=== PATIENT | female | born 1960 | race Caucasian/White ===

== ENCOUNTER 2019-01-12 18:01 | Inpatient (IN) ==
[2019-01-12] MEDS ORDERED: Isovue-370 500 ML BOTTLE IVP ONE (19:27)
[2019-01-12] MEDS ORDERED: 0.9 % Sodium Chloride 1,000 ML IVC ONE (19:28)
[2019-01-12 19:59] LABS: Basophils # 0.1 K/mcL (0.0-0.2); Basophils % 0.5 %; Eosinophils # 0.8 K/mcL (0.0-0.6); Eosinophils % 4.9 %; Hematocrit 36.2 % (35.3-44.9); Hemoglobin 12.4 g/dL (11.5-15.4); Immature Granulocytes % 0.8 % (0-4); Lymphocytes # 2.4 K/mcL (0.6-4.6); Lymphocytes % 15.5 %; Mean Corpuscular HGB Conc 34.3 g/dL (31.6-35.5); Mean Corpuscular Hemoglobin 29.7 pg (28.0-33.3); Mean Corpuscular Volume 86.6 fL (83.0-100.0); Monocytes # 0.9 K/mcL (0.0-1.3); Monocytes % 5.4 %; Neutrophils # 11.4 K/mcL (1.6-8.9); Platelet Count 298 K/mcL (140-400); Red Blood Count 4.18 M/mcL (3.82-4.97); Red Cell Distribution Width 13.8 % (11.5-14.5); Segmented Neutrophils % 72.9 %
[2019-01-12 20:06] LABS: Prothrombin Time 11.6 Seconds (9.4-12.1)
[2019-01-12 20:08] LABS: Activated Partial Thrombo Time 29.2 Seconds (26.0-36.0)
[2019-01-12 20:20] LABS: Alanine Aminotransferase 22 Units/L (7-52); Albumin 3.6 g/dL (3.5-5.7); Albumin/Globulin Ratio 0.9 (1.1-2.2); Alkaline Phosphatase 185 Units/L (34-104); Aspartate Amino Transferase 21 Units/L (13-39); BUN/Creatinine Ratio 31 (6-26); Bilirubin,Indirect 0.4 mg/dL (0.0-1.2); Bilirubin,Total 0.4 mg/dL (0.3-1.0); Blood Urea Nitrogen 22 mg/dL (6-20); Calcium 9.4 mg/dL (8.6-10.3); Carbon Dioxide 22 mEq/L (23-29); Chloride 99 mEq/L (98-107); Globulin 3.9 g/dL (2.4-3.5); Glucose 214 mg/dL (70-105); Lipase 18 Units/L (11-82); Magnesium 1.6 mg/dL (1.6-2.6); Osmolality,Calculated 280 (280-300); Phosphorous 3.4 mg/dL (2.7-4.5); Potassium 4.2 mEq/L (3.5-5.1); Sodium 130 mEq/L (136-145); Total Protein 7.5 g/dL (6.4-8.9); eGFR For Non-African Americans > 60 (> 60)
[2019-01-12 20:21] LABS: Troponin I < 0.03 ng/mL (< 0.04)
[2019-01-12 20:25] LABS: Bilirubin,Urine Negative (Negative); Blood,Urine Negative (Negative); Clarity,Urine Clear (Clear); Color,Urine Yellow (Yellow); Glucose,Urine (UA) >=1000 mg/dL (Normal); Ketones,Urine Negative (Negative); Leukocyte Esterase,Urine Trace (Negative); Nitrite,Urine Negative (Negative); Protein,Urine Negative (Neg-Trace); Specific Gravity,Urine 1.018 (1.010-1.025); Urobilinogen,Urine Normal (Normal)
[2019-01-12 20:26] LABS: Bacteria,Urine None Seen per hpf (None-Few); Hyaline Casts,Urine None Seen per lpf (None-Few); RBC,Urine 0-3 per hpf (0-3); Squamous Epithelial Cell,Urine Many per lpf (None-Few)
--- NOTE | 2019-01-12 20:28 | Emergency Department Note ---
Disposition Clinical Impression: Cellulitis Qualifiers: Site of cellulitis: extremity Site of cellulitis of extremity: lower extremity Laterality: right Qualified Code(s): L03.115 - Cellulitis of right lower limb Disposition: Admitted As Inpatient Condition: Fair Referrals: Carolyn Mendiola CNP [Primary Care Provider] - Forms: ED Satisfaction Letter Time of Disposition: 22:30 Extremity Problem HPI - General Chief complaint: ED Extremity Problem,Nontraumatic Stated complaint: RLE swelling Time Seen by Provider: 01/12/19 19:03 Source: patient Mode of arrival: ambulatory Limitations: no limitations Nursing Notes Reviewed: Yes Vital Signs Reviewed: Yes - History of Present Illness HPI Narrative: 58-year-old female process the emergency department with right leg swelling and pain and redness. Said it pain all started about a week ago getting in her right big toe and now the redness and pain is now going up into her leg. She says she has not noted any fevers for has not felt well over the last day or 2 she has had no nausea or vomiting. She does not have any shortness of breath or cough no hemoptysis she has not been on any long car rides she does not take any hormones and never had any blood clots as far she knows. She does have history of diabetic as well as neuropathy does take gabapentin. Otherwise there is no fevers, chills, nausea, vomiting, headache, blurry vision, neck pain, back pain, chest pain, shortness of breath, abdominal pain, changes in bowel movement, pain with urination, pain or tingling going down the arms or legs and generalized weakness Pain Scale: 10 - Related Data Home Medications Medication Instructions Recorded Confirmed Dapagliflozin Propanediol [Farxiga] 5 mg PO DAILY 09/08/16 01/12/19 Lisinopril [Zestril] 40 mg PO BID 09/08/16 01/12/19 metFORMIN [Glucophage] 1,000 mg PO BID 09/08/16 01/12/19 Atorvastatin [Lipitor] 20 mg PO DAILY 01/12/19 01/12/19 Canagliflozin [Invokana] 100 mg PO DAILY 01/12/19 01/12/19 Liraglutide [Victoza 3-Mo] 18 mg SQ DAILY 01/12/19 01/12/19 Previous Rx's Medication Instructions Recorded GlipiZIDE XL (24 HR) [Glucotrol XL] 10 mg PO 0800 #30 tab.er.24 09/10/16 Allergies Allergy/AdvReac Type Severity Reaction Status Date / Time sulfacetamide AdvReac Swelling Verified 01/12/19 16:00 of Lip/Tongue/Throat All systems ED: reviewed and negative except as stated. Review of Systems: As Per HPI Past Medical History - Past Medical History Attestation: Yes The following information was validated with the patient. Source: patient Medical history: Reports: diabetes, hypertension Surgical history: Reports: appendectomy, , cholecystectomy Psychiatric history: Reports: no psych history FRENCH BINDER history: Reports: no FRENCH BINDER history - Social History Smoking Status: Never smoker Smokeless Tobacco Status: No Alcohol use: Reports: none Drug use: Reports: none Physical Exam - General Limitations: no limitations General appearance: alert, in no apparent distress - Head Head exam: atraumatic, normocephalic, normal inspection - Eye Eye exam: Present: normal appearance, PERRL, EOMI - ENT ENT exam: normal exam ( ), normal oropharynx, mucous membranes moist - Neck Neck exam: Present: normal inspection, full ROM, trachea midline - Chest Chest inspection: Present: normal inspection, symmetric chest wall rise - Respiratory Respiratory exam: Present: normal lung sounds bilaterally - Extremities Exam Extremities exam: Present: normal inspection, full ROM. Absent: tenderness, pedal edema - Expanded Lower Extremity Exam Upper leg exam: Present: normal inspection, full ROM Knee exam: Present: normal inspection, full ROM Lower leg exam: Present: normal inspection, full ROM, tenderness, swelling (Mild swelling and erythema of the right leg all beginning down in the foot going up into the leg) Ankle exam: Present: normal inspection, full ROM Foot/toe exam: Present: full ROM, tenderness, swelling (We will swelling erythema to the right big toe does seem to be pus on the end of the toe no open drainage the toenails are curled and seemed to be ingrown in nature.), erythema. Absent: tenderness at base of 5th metatarsal Neurovascular/Tendon exam: Present: normal capillary refill. Absent: pulse deficit, motor deficit, sensory deficit, tendon deficit Gait: observed and normal - Neurological Exam Neurological exam: Present: alert, oriented X3 - Psychiatric Psychiatric exam: Present: normal affect, normal mood - Skin Skin exam: Present: warm, dry, intact, normal color Course Course Narrative: Patient is mildly tachycardic no signs of sepsis at this time. We have blood cultures, CBC, BMP we will get CT with contrast of the right lower extremity. There does not seem to be any signs of DVT patient does not have any risk factors and the foot does not to does not seem to look like DVT in nature. Vital Signs Temperature 99.2 F 01/12/19 18:12 Pulse Rate 127 01/12/19 18:12 Respiratory Rate 20 01/12/19 18:12 Blood Pressure 148/81 01/12/19 18:12 O2 Sat by Pulse Oximetry 97 01/12/19 18:12 Temperature 98.6 F 01/12/19 21:58 Pulse Rate 102 01/12/19 21:58 Respiratory Rate 18 01/12/19 21:58 Blood Pressure 124/67 01/12/19 21:58 O2 Sat by Pulse Oximetry 95 01/12/19 21:58 Oxygen Delivery Oxygen Delivery Room Air Extremity Problem, Nontraumati - MDM Narrative Medical decision making narrative: Patient here with possible right leg site is. There is no signs of DVT or swelling there are no DVT risk factors. This was likely is stabilizing the right leg. CT did show cellulitis with stranding I think the source is from paronychia of the right big toe there is pus there but there is no active discharge coming from the wound. There is nothing to culture at this time. We did get blood cultures. Labs did show leukocytosis otherwise no other acute findings. I feel patient does need podiatry consultation as well as admission for IV antibiotics. Did start patient on Zosyn and vancomycin as patient does have history of diabetes. Spoke with Dr. Longoria agreed to accept the patient to their service. Patient is admitted in stable condition. Lower Extremity CT 01/12/19 19:27 IMPRESSION: 1. Circumferential subcutaneous fat stranding of the right calf extending over the dorsum of the midfoot and forefoot compatible with cellulitis versus lymphedema. No drainable fluid collection. 2. No acute osseous abnormality. D/ / Jamie Mendoza MD / Jamie Mendoza MD Interpreting Provider: Jamie Mendoza MD - Medical Records Medical records reviewed: Yes I reviewed the patient's medical records. - Lab Data Lab results reviewed: Yes I reviewed the patient's lab results. Result diagrams: 01/12/19 19:36 01/12/19 19:36 Lab Results 01/12/19 01/12/19 01/12/19 Range/Units 19:36 19:36 19:36 WBC 15.7 H (4.3-11.1) K/mcL RBC 4.18 (3.82-4.97) M/mcL Hgb 12.4 (11.5-15.4) g/dL Hct 36.2 (35.3-44.9) % MCV 86.6 (83.0-100.0) fL MCH 29.7 (28.0-33.3) pg MCHC 34.3 (31.6-35.5) g/dL RDW 13.8 (11.5-14.5) % Plt Count 298 (140-400) K/mcL MPV 10.0 (9.4-12.4) fL Immature Gran % 0.8 (0-4) % Seg Neutrophils % 72.9 % Lymphocytes % 15.5 % Monocytes % 5.4 % Eosinophils % 4.9 % Basophils % 0.5 % Neutrophils # 11.4 H (1.6-8.9) K/mcL Lymphocytes # 2.4 (0.6-4.6) K/mcL Monocytes # 0.9 (0.0-1.3) K/mcL Eosinophils # 0.8 H (0.0-0.6) K/mcL Basophils # 0.1 (0.0-0.2) K/mcL PT 11.6 (9.4-12.1) Seconds INR 1.0 APTT 29.2 (26.0-36.0) Seconds Sodium 130 L (136-145) mEq/L Potassium 4.2 (3.5-5.1) mEq/L Chloride 99 (98-107) mEq/L Carbon Dioxide 22 L (23-29) mEq/L BUN 22 H (6-20) mg/dL Creatinine 0.71 (0.60-1.20) mg/dL Est GFR ( Amer) > 60 (> 60) Est GFR (Non-Af Amer) > 60 (> 60) BUN/Creatinine Ratio 31 H (6-26) Glucose 214 H (70-105) mg/dL Calculated Osmolality 280 (280-300) Lactic Acid (0.5-2.2) mmol/L Calcium 9.4 (8.6-10.3) mg/dL Phosphorus 3.4 (2.7-4.5) mg/dL Magnesium 1.6 (1.6-2.6) mg/dL Total Bilirubin 0.4 (0.3-1.0) mg/dL Direct Bilirubin 0.0 (0.0-0.2) mg/dL Indirect Bilirubin 0.4 (0.0-1.2) mg/dL AST 21 (13-39) Units/L ALT 22 (7-52) Units/L Alkaline Phosphatase 185 H (34-104) Units/L Troponin I < 0.03 (< 0.04) ng/mL B-Natriuretic Peptide (Less than 100) pg/mL Serum Total Protein 7.5 (6.4-8.9) g/dL Albumin 3.6 (3.5-5.7) g/dL Globulin 3.9 H (2.4-3.5) g/dL Albumin/Globulin Ratio 0.9 L (1.1-2.2) Lipase 18 (11-82) Units/L Urine Color (Yellow) Urine Clarity (Clear) Urine pH (5.0-8.0) pH Units Ur Specific [place] (1.010-1.025) Urine Protein (Neg-Trace) mg/dL Urine Glucose (UA) (Normal) mg/dL Urine Ketones (Negative) mg/dL Urine Blood (Negative) Urine Nitrite (Negative) Urine Bilirubin (Negative) Urine Urobilinogen (Normal) mg/dL Ur Leukocyte Esterase (Negative) Urine Microscopic RBC (0-3) per hpf Urine Microscopic WBC (0-3) per hpf Ur Squamous Epith Cells (None-Few) per lpf Urine Bacteria (None-Few) per hpf Hyaline Casts (None-Few) per lpf Ur Culture Indicated? (NO) 01/12/19 01/12/19 01/12/19 Range/Units 19:36 19:36 20:17 WBC (4.3-11.1) K/mcL RBC (3.82-4.97) M/mcL Hgb (11.5-15.4) g/dL Hct (35.3-44.9) % MCV (83.0-100.0) fL MCH (28.0-33.3) pg MCHC (31.6-35.5) g/dL RDW (11.5-14.5) % Plt Count (140-400) K/mcL MPV (9.4-12.4) fL Immature Gran % (0-4) % Seg Neutrophils % % Lymphocytes % % Monocytes % % Eosinophils % % Basophils % % Neutrophils # (1.6-8.9) K/mcL Lymphocytes # (0.6-4.6) K/mcL Monocytes # (0.0-1.3) K/mcL Eosinophils # (0.0-0.6) K/mcL Basophils # (0.0-0.2) K/mcL PT (9.4-12.1) Seconds INR APTT (26.0-36.0) Seconds Sodium (136-145) mEq/L Potassium (3.5-5.1) mEq/L Chloride (98-107) mEq/L Carbon Dioxide (23-29) mEq/L BUN (6-20) mg/dL Creatinine (0.60-1.20) mg/dL Est GFR ( Amer) (> 60) Est GFR (Non-Af Amer) (> 60) BUN/Creatinine Ratio (6-26) Glucose (70-105) mg/dL Calculated Osmolality (280-300) Lactic Acid 1.4 (0.5-2.2) mmol/L Calcium (8.6-10.3) mg/dL Phosphorus (2.7-4.5) mg/dL Magnesium (1.6-2.6) mg/dL Total Bilirubin (0.3-1.0) mg/dL Direct Bilirubin (0.0-0.2) mg/dL Indirect Bilirubin (0.0-1.2) mg/dL AST (13-39) Units/L ALT (7-52) Units/L Alkaline Phosphatase (34-104) Units/L Troponin I (< 0.04) ng/mL B-Natriuretic Peptide 15 (Less than 100) pg/mL Serum Total Protein (6.4-8.9) g/dL Albumin (3.5-5.7) g/dL Globulin (2.4-3.5) g/dL Albumin/Globulin Ratio (1.1-2.2) Lipase (11-82) Units/L Urine Color Yellow (Yellow) Urine Clarity Clear (Clear) Urine pH 6.0 (5.0-8.0) pH Units Ur Specific [place] 1.018 (1.010-1.025) Urine Protein Negative (Neg-Trace) mg/dL Urine Glucose (UA) >=1000 H (Normal) mg/dL Urine Ketones Negative (Negative) mg/dL Urine Blood Negative (Negative) Urine Nitrite Negative (Negative) Urine Bilirubin Negative (Negative) Urine Urobilinogen Normal (Normal) mg/dL Ur Leukocyte Esterase Trace H (Negative) Urine Microscopic RBC 0-3 (0-3) per hpf Urine Microscopic WBC 5-15 H (0-3) per hpf Ur Squamous Epith Cells Many H (None-Few) per lpf Urine Bacteria None Seen (None-Few) per hpf Hyaline Casts None Seen (None-Few) per lpf Ur Culture Indicated? NO. A (NO) - Radiology Data Radiology results reviewed: Yes I reviewed the patient's radiology results.
[2019-01-12] MEDS ORDERED: Piperacillin/Tazobactam 3.375 GM in 0.9 % Sodium Chloride Mini Bag 100 ML IVPB ONE (22:03)
--- NOTE | 2019-01-12 22:25 | Emergency Department Note ---
Disposition Clinical Impression: Cellulitis Qualifiers: Site of cellulitis: extremity Site of cellulitis of extremity: lower extremity Laterality: right Qualified Code(s): L03.115 - Cellulitis of right lower limb Disposition: Admitted As Inpatient Condition: Fair General Adult HPI - General Chief complaint: ED Extremity Problem,Nontraumatic Stated complaint: RLE swelling Time Seen by Provider: 01/12/19 19:03 Source: patient Mode of arrival: ambulatory Limitations: no limitations Nursing Notes Reviewed: Yes Vital Signs Reviewed: Yes - History of Present Illness Pain Scale: 10 - Related Data Home Medications Medication Instructions Recorded Confirmed Dapagliflozin Propanediol [Farxiga] 5 mg PO DAILY 09/08/16 01/12/19 Lisinopril [Zestril] 40 mg PO BID 09/08/16 01/12/19 metFORMIN [Glucophage] 1,000 mg PO BID 09/08/16 01/12/19 Atorvastatin [Lipitor] 20 mg PO DAILY 01/12/19 01/12/19 Canagliflozin [Invokana] 100 mg PO DAILY 01/12/19 01/12/19 Liraglutide [Victoza 3-Mo] 18 mg SQ DAILY 01/12/19 01/12/19 Previous Rx's Medication Instructions Recorded GlipiZIDE XL (24 HR) [Glucotrol XL] 10 mg PO 0800 #30 tab.er.24 09/10/16 Allergies Allergy/AdvReac Type Severity Reaction Status Date / Time sulfacetamide AdvReac Swelling Verified 01/12/19 16:00 of Lip/Tongue/Throat Past Medical History - Past Medical History Medical history: Reports: diabetes, hypertension Surgical history: Reports: appendectomy, , cholecystectomy Psychiatric history: Reports: no psych history DUST MIXER history: Reports: no DUST MIXER history - Social History Smoking Status: Never smoker Smokeless Tobacco Status: No Alcohol use: Reports: none Drug use: Reports: none Physical Exam - General Limitations: no limitations General appearance: alert, in no apparent distress Course Vital Signs Temperature 99.2 F 01/12/19 18:12 Pulse Rate 127 01/12/19 18:12 Respiratory Rate 20 01/12/19 18:12 Blood Pressure 148/81 01/12/19 18:12 O2 Sat by Pulse Oximetry 97 01/12/19 18:12 Temperature 98.6 F 01/12/19 21:58 Pulse Rate 102 01/12/19 21:58 Respiratory Rate 18 01/12/19 22:52 Blood Pressure 118/70 01/12/19 22:52 O2 Sat by Pulse Oximetry 95 01/12/19 21:58 Oxygen Delivery Oxygen Delivery Room Air Medical Decision Making - Medical Records Medical records reviewed: Yes I reviewed the patient's medical records. - Lab Data Lab results reviewed: Yes I reviewed the patient's lab results. Result diagrams: 01/12/19 19:36 01/12/19 19:36 Lab Results 01/12/19 01/12/19 01/12/19 Range/Units 19:36 19:36 19:36 WBC 15.7 H (4.3-11.1) K/mcL RBC 4.18 (3.82-4.97) M/mcL Hgb 12.4 (11.5-15.4) g/dL Hct 36.2 (35.3-44.9) % MCV 86.6 (83.0-100.0) fL MCH 29.7 (28.0-33.3) pg MCHC 34.3 (31.6-35.5) g/dL RDW 13.8 (11.5-14.5) % Plt Count 298 (140-400) K/mcL MPV 10.0 (9.4-12.4) fL Immature Gran % 0.8 (0-4) % Seg Neutrophils % 72.9 % Lymphocytes % 15.5 % Monocytes % 5.4 % Eosinophils % 4.9 % Basophils % 0.5 % Neutrophils # 11.4 H (1.6-8.9) K/mcL Lymphocytes # 2.4 (0.6-4.6) K/mcL Monocytes # 0.9 (0.0-1.3) K/mcL Eosinophils # 0.8 H (0.0-0.6) K/mcL Basophils # 0.1 (0.0-0.2) K/mcL PT 11.6 (9.4-12.1) Seconds INR 1.0 APTT 29.2 (26.0-36.0) Seconds Sodium 130 L (136-145) mEq/L Potassium 4.2 (3.5-5.1) mEq/L Chloride 99 (98-107) mEq/L Carbon Dioxide 22 L (23-29) mEq/L BUN 22 H (6-20) mg/dL Creatinine 0.71 (0.60-1.20) mg/dL Est GFR ( Amer) > 60 (> 60) Est GFR (Non-Af Amer) > 60 (> 60) BUN/Creatinine Ratio 31 H (6-26) Glucose 214 H (70-105) mg/dL Calculated Osmolality 280 (280-300) Lactic Acid (0.5-2.2) mmol/L Calcium 9.4 (8.6-10.3) mg/dL Phosphorus 3.4 (2.7-4.5) mg/dL Magnesium 1.6 (1.6-2.6) mg/dL Total Bilirubin 0.4 (0.3-1.0) mg/dL Direct Bilirubin 0.0 (0.0-0.2) mg/dL Indirect Bilirubin 0.4 (0.0-1.2) mg/dL AST 21 (13-39) Units/L ALT 22 (7-52) Units/L Alkaline Phosphatase 185 H (34-104) Units/L Troponin I < 0.03 (< 0.04) ng/mL B-Natriuretic Peptide (Less than 100) pg/mL Serum Total Protein 7.5 (6.4-8.9) g/dL Albumin 3.6 (3.5-5.7) g/dL Globulin 3.9 H (2.4-3.5) g/dL Albumin/Globulin Ratio 0.9 L (1.1-2.2) Lipase 18 (11-82) Units/L Urine Color (Yellow) Urine Clarity (Clear) Urine pH (5.0-8.0) pH Units Ur Specific [place] (1.010-1.025) Urine Protein (Neg-Trace) mg/dL Urine Glucose (UA) (Normal) mg/dL Urine Ketones (Negative) mg/dL Urine Blood (Negative) Urine Nitrite (Negative) Urine Bilirubin (Negative) Urine Urobilinogen (Normal) mg/dL Ur Leukocyte Esterase (Negative) Urine Microscopic RBC (0-3) per hpf Urine Microscopic WBC (0-3) per hpf Ur Squamous Epith Cells (None-Few) per lpf Urine Bacteria (None-Few) per hpf Hyaline Casts (None-Few) per lpf Ur Culture Indicated? (NO) 01/12/19 01/12/1901/12/19 Range/Units 19:36 19:36 20:17 WBC (4.3-11.1) K/mcL RBC (3.82-4.97) M/mcL Hgb (11.5-15.4) g/dL Hct (35.3-44.9) % MCV (83.0-100.0) fL MCH (28.0-33.3) pg MCHC (31.6-35.5) g/dL RDW (11.5-14.5) % Plt Count (140-400) K/mcL MPV (9.4-12.4) fL Immature Gran % (0-4) % Seg Neutrophils % % Lymphocytes % % Monocytes % % Eosinophils % % Basophils % % Neutrophils # (1.6-8.9) K/mcL Lymphocytes # (0.6-4.6) K/mcL Monocytes # (0.0-1.3) K/mcL Eosinophils # (0.0-0.6) K/mcL Basophils # (0.0-0.2) K/mcL PT (9.4-12.1) Seconds INR APTT (26.0-36.0) Seconds Sodium (136-145) mEq/L Potassium (3.5-5.1) mEq/L Chloride (98-107) mEq/L Carbon Dioxide (23-29) mEq/L BUN (6-20) mg/dL Creatinine (0.60-1.20) mg/dL Est GFR ( Amer) (> 60) Est GFR (Non-Af Amer) (> 60) BUN/Creatinine Ratio (6-26) Glucose (70-105) mg/dL Calculated Osmolality (280-300) Lactic Acid 1.4 (0.5-2.2) mmol/L Calcium (8.6-10.3) mg/dL Phosphorus (2.7-4.5) mg/dL Magnesium (1.6-2.6) mg/dL Total Bilirubin (0.3-1.0) mg/dL Direct Bilirubin (0.0-0.2) mg/dL Indirect Bilirubin (0.0-1.2) mg/dL AST (13-39) Units/L ALT (7-52) Units/L Alkaline Phosphatase (34-104) Units/L Troponin I (< 0.04) ng/mL B-Natriuretic Peptide 15 (Less than 100) pg/mL Serum Total Protein (6.4-8.9) g/dL Albumin (3.5-5.7) g/dL Globulin (2.4-3.5) g/dL Albumin/Globulin Ratio (1.1-2.2) Lipase (11-82) Units/L Urine Color Yellow (Yellow) Urine Clarity Clear (Clear) Urine pH 6.0 (5.0-8.0) pH Units Ur Specific [place] 1.018 (1.010-1.025) Urine Protein Negative (Neg-Trace) mg/dL Urine Glucose (UA) >=1000 H (Normal) mg/dL Urine Ketones Negative (Negative) mg/dL Urine Blood Negative (Negative) Urine Nitrite Negative (Negative) Urine Bilirubin Negative (Negative) Urine Urobilinogen Normal (Normal) mg/dL Ur Leukocyte Esterase Trace H (Negative) Urine Microscopic RBC 0-3 (0-3) per hpf Urine Microscopic WBC 5-15 H (0-3) per hpf Ur Squamous Epith Cells Many H (None-Few) per lpf Urine Bacteria None Seen (None-Few) per hpf Hyaline Casts None Seen (None-Few) per lpf Ur Culture Indicated? NO. A (NO) - Radiology Data Radiology results reviewed: Yes I reviewed the patient's radiology results. Lower Extremity CT 01/12/19 19:27 IMPRESSION: 1. Circumferential subcutaneous fat stranding of the right calf extending over the dorsum of the midfoot and forefoot compatible with cellulitis versus lymphedema. No drainable fluid collection. 2. No acute osseous abnormality. D/ / Jamie Mendoza MD / Jamie Mendoza MD Interpreting Provider: Jamie Mendoza MD Critical Care Time Critical Care Time: Yes Total Critical Care Time: 35 Attestation: Critical care performed: Time is exclusive of separately billable procedures. Time includes: direct patient care, patient reassessment, coordination of patient care, interpretation of data (laboratory data, radiology data, and respiratory data), review of [facility] medical records, medical consultation and documentation of patient care. Procedures included in critical care time: Procedures excluded from critical care time: Attestation Statement - Attestation Attestation: I, Jayy Frazier MD, personally evaluated this patient and discussed their management with the resident physician. I reviewed the resident's note and agree with the documented findings, medical decision making, and plan of care. 58-year-old female presents to the emergency department with complaint of pain and swelling and redness in the right great toe and right foot. This started ab out 2 weeks ago and has progressively gotten worse over the past 2 weeks. Now the entire foot is red and swollen with discoloration streaking along the medial aspect of the foot. She also complains of pain in the calf. Some chills but no definite fever. Patient is diabetic. On examination patient is a well-developed well-nourished female in no acute distress. She is alert and oriented 3. There is no cyanosis or diaphoresis. Breath sounds are clear and equal bilaterally. Heart is regular with a mild tachycardia. Abdomen soft and nontender with normal bowel sounds. There is diffuse tenderness to palpation of the right lower leg from just below the knee down. There is no erythema but it is slightly warm to touch. There is erythema primarily of the right great toe extending up onto the top of the foot. The entire right foot is mildly swollen. Palpable DP pulse and good capillary refill. Some decreased sensation in the right big toe. Patient states she does have some problems with diabetic neuropathy. Labs reviewed. CT consistent with cellulitis of the right foot and lower leg. IV antibiotics initiated, Zosyn and vancomycin. The hospitalist, Dr. Josue, was consulted and accepted admission of the patient.
[2019-01-12] MEDS ORDERED: Acetaminophen 325 MG TABLET PO PRN (22:59)
[2019-01-12] MEDS ORDERED: Dextrose Gel 15 GM/37.5 ML TUBE PO PRN ×2 (22:59)
[2019-01-12] MEDS ORDERED: *HR* Dextrose 50 % in Water (Syg) 50 ML SYRINGE IVP PRN (22:59)
[2019-01-12] MEDS ORDERED: Insulin DETEMIR 100 UNIT/ML X5UNITS SQ ONE (22:59)
[2019-01-12] MEDS ORDERED: Naloxone 0.4 MG/ML INJ IVP PRN (22:59)
[2019-01-12] MEDS: 0.9 % Sodium Chloride 1,000 ML IVC SCH (23:52)
[2019-01-12] MEDS: traMADol 50 MG TABLET PO PRN (23:53)
--- NOTE | 2019-01-13 00:01 | Internal Med History&Physical ---
Date of Encounter: 01/12/19 Time of Encounter: 23:59 Internal Medicine - H&P: HPI Chief complaint: foot pain Admitted From: Home Plans for Post Hospital Care: Home History of present illness: Valeria Galicia is a 58 year old woman with poorly controlled diabetes with neuropathy who presents to the emergency room complaining of redness, swelling and pain in her right great toe which she has been dealing with over the past 2 weeks after cutting her toenail with a clipper but had a tissue cut. No associated fever or chills. No nausea or vomiting. She was tachycardic with a low grade temperature and seen to have leukocytosis. CT scan showed subcutaneous fat stranding of the right calf extending over the dorsum of the midfoot and forefoot compatible with cellulitis. She is admitted for further care. Past Med Surg Social Fam HX - Past Medical History Medical history: diabetes, hypertension Psychiatric history: no psych history - Past Surgical History Surgical History: appendectomy, , cholecystectomy Additional surgical history: dental surgery - Social History Smoking Status: Never smoker Smokeless Tobacco Status: No Alcohol use: none Drug use: none - Family History Mother Living Status: Still Living Hx Family Endocrine Disorder: Yes (Diabetes) Father Living Status: Still Living Hx Family Cancer: Yes Internal Medicine - H&P: Meds Dapagliflozin Propanediol [Farxiga] 5 mg PO DAILY 09/08/16 [History] Lisinopril [Zestril] 40 mg PO BID 09/08/16 [History] metFORMIN [Glucophage] 1,000 mg PO BID 09/08/16 [History] GlipiZIDE XL (24 HR) [Glucotrol XL] 10 mg PO 0800 #30 tab.er.24 09/10/16 [Rx] Atorvastatin [Lipitor] 20 mg PO DAILY 01/12/19 [History] Canagliflozin [Invokana] 100 mg PO DAILY 01/12/19 [History] Liraglutide [Victoza 3-Mo] 18 mg SQ DAILY 01/12/19 [History] Allergy/AdvReac Type Severity Reaction Status Date / Time sulfacetamide AdvReac Swelling Verified 01/12/19 16:00 of Lip/Tongue/Throat All Systems PM: A 10-system review of systems was performed and is negative for pertinent findings except as documented above in the HPI. - Constitutional Vitals: Temp Pulse Resp BP Pulse Ox 98.6 F 102 18 118/70 95 01/12/19 21:58 01/12/19 21:58 01/12/19 22:52 01/12/19 22:52 01/12/19 21:58 Exam: Vitals: Reviewed General: Obese white woman lying in bed in NAD Skin: Warm and supple. HEENT: Moist mucous membranes. No conjunctivae pallor. Neck: No lymphadenopathy. No JVD. No carotid bruits. No palpable thyroid. Chest: Normal thoracic expansion. Normal breath sounds. Clear to auscultation. Heart: Normal S1 & S2; rhythmic. No rubs or murmurs. Abdomen: Non-distended, soft and non-tender to palpation. No peritoneal reaction. Extremities: No clubbing, cyanosis. Right forefoot with erythema and notable tense swelling on the great toe which is tender to palpation. No calf tenderness. Normal distal pulses. Neurological: Awake, alert and oriented to person, place and time. No focal deficits. Psych: Affect appropriate. Internal Med - H&P Results - Labs CBC & Chem 7: 01/12/19 19:36 01/12/19 19:36 Labs: Short CBC 01/12/19 Range/Units 19:36 WBC 15.7 H (4.3-11.1) K/mcL Hgb 12.4 (11.5-15.4) g/dL Hct 36.2 (35.3-44.9) % Plt Count 298 (140-400) K/mcL Neutrophils # 11.4 H (1.6-8.9) K/mcL BMP 01/12/19 19:36 Sodium 130 L Potassium 4.2 Chloride 99 Carbon Dioxide 22 L BUN 22 H Creatinine 0.71 Glucose 214 H Calcium 9.4 Cardiac Enzymes 01/12/19 Range/Units 19:36 Troponin I < 0.03 (< 0.04) ng/mL Liver Function 01/12/19 Range/Units 19:36 Total Bilirubin 0.4 (0.3-1.0) mg/dL Direct Bilirubin 0.0 (0.0-0.2) mg/dL AST 21 (13-39) Units/L ALT 22 (7-52) Units/L Alkaline Phosphatase 185 H (34-104) Units/L Albumin 3.6 (3.5-5.7) g/dL Urine 01/12/19 Range/Units 20:17 Urine Color Yellow (Yellow) Urine Clarity Clear (Clear) Urine pH 6.0 (5.0-8.0) pH Units Ur Specific [place] 1.018 (1.010-1.025) Urine Protein Negative (Neg-Trace) mg/dL Urine Glucose (UA) >=1000 H (Normal) mg/dL - Impressions ITS Impressions Lower Extremity CT 01/12/19 19:27 IMPRESSION: 1. Circumferential subcutaneous fat stranding of the right calf extending over the dorsum of the midfoot and forefoot compatible with cellulitis versus lymphedema. No drainable fluid collection. 2. No acute osseous abnormality. D/ / Jamie Mendoza MD / Jamie Mendoza MD Interpreting Provider: Jamie eMndoza MD - Assessment and Plan (1) Cellulitis of great toe of right foot Current Visit: Yes Status: Acute Assessment and plan: Likely secondary to traumatic injury induced by her nail-cutting. She will benefit from podiatry evaluation and follow up care as an outpatient. Send blood cultures and continue empiric antibiotics. (2) Diabetes mellitus Current Visit: Yes Status: Chronic Assessment and plan: Poorly controlled. Last A1C >12% in 2015. Will start basal insulin with sliding scale and recheck A1C. Qualifiers: Diabetes mellitus type: type 2 Diabetes mellitus terminal manager insulin use: unspecified skilled nursing insulin use status Diabetes mellitus complication status: with unspecified complications Qualified Code(s): E11.8 - Type 2 diabetes mellitus with unspecified complications (3) Essential hypertension Current Visit: Yes Status: Chronic Assessment and plan: Resume antihypertensive once reconciled. (4) Obesity Current Visit: Yes Status: Acute Assessment and plan: Counseled and educated on therapeutic lifestyle changes for weight loss as it will be of benefit in controlling comorbidities. Lace Burn Out Tender evaluation advised. Qualifiers: Obesity type: due to excess calories Obesity classification: adult class 2 (BMI 35 - 39.9) Serious obesity comorbidity presence: with serious comorbidity Body mass index: BMI 35.0-35.9 Qualified Code(s): E66.01 - Morbid (severe) obesity due to excess calories; Z68.35 - Body mass index (BMI) 35.0-35.9, adult - Time Spent With Patient Total time spent is greater than 50% in coordination of care (as documented) at patient's floor/unit and/or counseling patient: Greater than 35 minutes
[2019-01-13] MEDS: *HR* Heparin 5,000 UNIT/ML VIAL SQ SCH ×2 (04:54→17:03)
[2019-01-13 06:23] LABS: Basophils # 0.1 K/mcL (0.0-0.2); Basophils % 0.4 %; Eosinophils # 0.6 K/mcL (0.0-0.6); Eosinophils % 4.8 %; Hematocrit 33.6 % (35.3-44.9); Hemoglobin 11.3 g/dL (11.5-15.4); Immature Granulocytes % 0.6 % (0-4); Lymphocytes # 2.4 K/mcL (0.6-4.6); Lymphocytes % 20.4 %; Mean Corpuscular HGB Conc 33.6 g/dL (31.6-35.5); Mean Corpuscular Hemoglobin 29.7 pg (28.0-33.3); Mean Corpuscular Volume 88.2 fL (83.0-100.0); Mean Platelet Volume 9.9 fL (9.4-12.4); Monocytes # 0.6 K/mcL (0.0-1.3); Monocytes % 5.4 %; Neutrophils # 7.9 K/mcL (1.6-8.9); Platelet Count 278 K/mcL (140-400); Red Blood Count 3.81 M/mcL (3.82-4.97); Red Cell Distribution Width 14.1 % (11.5-14.5); Segmented Neutrophils % 68.4 %
[2019-01-13 06:36] LABS: BUN/Creatinine Ratio 26 (6-26); Blood Urea Nitrogen 15 mg/dL (6-20); Calcium 8.6 mg/dL (8.6-10.3); Carbon Dioxide 23 mEq/L (23-29); Chloride 106 mEq/L (98-107); Glucose 77 mg/dL (70-105); Osmolality,Calculated 288 (280-300); Potassium 3.7 mEq/L (3.5-5.1); Sodium 139 mEq/L (136-145); eGFR For Non-African Americans > 60 (> 60)
[2019-01-13] MEDS: 0.9 % Sodium Chloride 1,000 ML IVC SCH (06:41)
--- NOTE | 2019-01-13 09:24 | Podiatry Consult Note ---
Date of Encounter: 01/13/19 Time of Encounter: 09:24 Assessment and Plan (1) Paronychia Current visit: Yes Status: Acute 1. Patient evaluated and treated. The cellulitis appears to be coming from the ingrown toenail of the right 1st toe. There are no other obvious wounds or sources of the infection. CT right foot showed no evidence of soft tissue gas or abscess. I recommended nail avulsion procedure for infection source control. Will obtain cultures if purulence is noted. Continue with IV antibiotic for now. Will likely discharge on PO antibiotics once cellulitis has improved. Will plan for procedure later today. SNOMED Code(s): 19555608 (2) Cellulitis of great toe of right foot Current visit: Yes Status: Acute 1. Continue with IV antibiotics until cellulitis improved. Will obtain cultures if purulence is noted during nail avulsion procedure. History of Present Illness Chief complaint: right 1st toe cellulitis HPI: Ms. Galicia is a 58 year old female with a history of type II diabetes presenting with redness and swelling of the right 1st toe. She reports the redness started approximately 1 week ago when she tried to trim her toenail and it became inflamed. She denies n/v/f/c at this time. There is pain at the nail to touch. She denies any drainage coming from the nail. She denies any known trauma. Noted WBC of 15.[address] without evidence of abscess or soft tissue gas. Past Med Surg Social Fam HX - Past Medical History Medical history: diabetes, hypertension Psychiatric history: no psych history - Past Surgical History Surgical History: appendectomy, , cholecystectomy Additional surgical history: dental surgery - Social History Smoking Status: Never smoker Smokeless Tobacco Status: No Alcohol use: none Drug use: none - Family History Mother Living Status: Still Living Hx Family Endocrine Disorder: Yes (Diabetes) Father Living Status: Still Living Hx Family Cancer: Yes Medications and Allergies Dapagliflozin Propanediol [Farxiga] 5 mg PO DAILY 09/08/16 [History] Lisinopril [Zestril] 40 mg PO BID 09/08/16 [History] metFORMIN [Glucophage] 1,000 mg PO BID 09/08/16 [History] GlipiZIDE XL (24 HR) [Glucotrol XL] 10 mg PO 0800 #30 tab.er.24 09/10/16 [Rx] Atorvastatin [Lipitor] 20 mg PO DAILY 01/12/19 [History] Canagliflozin [Invokana] 100 mg PO DAILY 01/12/19 [History] Liraglutide [Victoza 3-Mo] 18 mg SQ DAILY 01/12/19 [History] Allergy/AdvReac Type Severity Reaction Status Date / Time sulfacetamide AdvReac Swelling Verified 01/12/19 16:00 of Lip/Tongue/Throat All Systems Reviewed: The remainder of the systems were reviewed and are negative Physical Exam - Constitutional Vitals: Temp Pulse Resp BP Pulse Ox 98.2 F 87 17 144/82 99 01/13/19 07:46 01/13/19 07:46 01/13/19 07:46 01/13/19 07:46 01/13/19 07:46 Exam: Constitutional: Alert, oriented x3, no acute distress. Vascular: DP and PT palpable bilateral. Capillary refill less than 3 seconds to all digits. Skin temperature warm to touch right first toe compared to leg. Dermatology: Right hallux nail with mild incurvation at all nail folds. No active drainage. Erythema extending proximally to level of MPJ. No crepitus. No other wounds or lesions. Musculoskeletal: Tenderness with palpation right 1st toenail. Neuro: Sensations diminished to light touch bilateral lower extremity. Results - Labs Result Diagrams: 01/13/19 05:31 01/13/19 05:31 Labs: Abnormal lab results WBC 11.6 K/mcL (4.3-11.1) H 01/13/19 05:31 RBC 3.81 M/mcL (3.82-4.97) L 01/13/19 05:31 Hgb 11.3 g/dL (11.5-15.4) L 01/13/19 05:31 Hct 33.6 % (35.3-44.9) L 01/13/19 05:31 Creatinine 0.58 mg/dL (0.60-1.20) L 01/13/19 05:31 Alkaline Phosphatase 185 Units/L (34-104) H 01/12/19 19:36 Globulin 3.9 g/dL (2.4-3.5) H 01/12/19 19:36 Albumin/Globulin Ratio 0.9 (1.1-2.2) L 01/12/19 19:36 Urine Glucose (UA) >=1000 mg/dL (Normal) H 01/12/19 20:17 Ur Leukocyte Esterase Trace (Negative) H 01/12/19 20:17 Urine Microscopic WBC 5-15 per hpf (0-3) H 01/12/19 20:17 Ur Squamous Epith Cells Many per lpf (None-Few) H 01/12/19 20:17 Ur Culture Indicated? NO. (NO) A 01/12/19 20:17 H & H 01/12/19 01/13/19 Range/Units 19:36 05:31 Hgb 12.4 11.3 L (11.5-15.4) g/dL Hct 36.2 33.6 L (35.3-44.9) % All other labs normal. Consult Discharge Plan - Plan Additional Instructions: 1. Apply triple antibiotic and bandaid daily to the right 1st toe wound after discharge. Can shower normally. 2. Follow up with Dr. Og Manning 1 week after discharge. 3. Complete PO antibiotics as prescribed after discharge. Referrals: Carolyn Mendiola CNP [Primary Care Provider] - Og Manning DPM [Partnered Physician] -
[2019-01-13] MEDS: Insulin LISPRO 300 UNITS/3 ML VIAL SQ SCH ×4 (09:29→19:57)
[2019-01-13] MEDS: Piperacillin/Tazobactam 3.375 GM in 0.9 % Sodium Chloride Mini Bag 100 ML IVPB SCH ×3 (09:30→23:13)
[2019-01-13] MEDS: traMADol 50 MG TABLET PO PRN (09:44)
--- NOTE | 2019-01-13 12:18 | Procedure Note ---
Date of procedure: 01/13/19 Pre-op diagnosis: paronychia right 1st toe Post-op diagnosis: same Procedure: 1. Right 1st toe nail avulsion Patient presented with right 1st toenail infection and cellulitis. Surgical removal of the nail was recommended. Surgical consent was obtained for right 1st toenail avulsion for suspected abscess and paronychia. The right 1st toe was prepped with betadine. A total of 5mL of 1% lidocaine plain was injected to the right 1st toe. A curved hemostat was used to remove the entire nail plate of the right 1st toe. A small amount of purulent drainage was noted at the distal aspect of the toe. Would culture sent for aerobe and anaerobe. No fluid pocket was noted after removal of the nail. No laceration was noted to the nail bed. The wound was irrigated with 10mL of normal saline. The wound was dressed with adaptic and dry, sterile dressing. She tolerated the procedure well and there were no complications. Capillary refill to the right 1st toe was brisk following the procedure. Will tailor antibiotics to wound culture sensitivities. Anesthesia: local Surgeon: Og Manning Was there an captain assistant present: No Estimated blood loss (cc): 0 Specimen: wound culture for aerobe, anaerobe right 1st toe Condition: stable Disposition: floor
--- NOTE | 2019-01-13 12:55 | Internal Med Progress Note ---
Hospitalist Progress Note - Encounter Date of Encounter: 01/13/19 Time of Encounter: 09:00 - Subjective Interval History: Patient has no fever. Minimal right big toe pain. Denies chills/nausea/vomiting - Exam Vitals: Temp Pulse Resp BP Pulse Ox 98.4 F 93 18 146/84 98 01/13/19 11:56 01/13/19 11:56 01/13/19 11:56 01/13/19 11:56 01/13/19 11:56 Exam: Vitals: Reviewed General: Obese white woman lying in bed in NAD Skin: Warm and supple. HEENT: Moist mucous membranes. No conjunctivae pallor. Neck: No lymphadenopathy. No JVD. No carotid bruits. No palpable thyroid. Chest: Normal thoracic expansion. Normal breath sounds. Clear to auscultation. Heart: Normal S1 & S2; rhythmic. No rubs or murmurs. Abdomen: Non-distended, soft and non-tender to palpation. No peritoneal reaction. Extremities: No clubbing, cyanosis. Right forefoot with erythema and notable tense swelling on the great toe which is tender to palpation. No calf tenderness. Normal distal pulses. Neurological: Awake, alert and oriented to person, place and time. No focal deficits. Psych: Affect appropriate. - Assessment and Plan (1) Essential hypertension Current Visit: Yes Status: Chronic Assessment and Plan: Resume antihypertensive once reconciled. (2) Diabetes mellitus Current Visit: Yes Status: Chronic Assessment and Plan: Continue sliding scale insulin coverage (3) Cellulitis of great toe of right foot Current Visit: Yes Status: Acute Assessment and Plan: Likely secondary to traumatic injury induced by her nail-cutting. Podiatry saw patient at bedside. Did first toe nail removal Continue vancomycin. Follow-up of blood and wound culture (4) Obesity Current Visit: Yes Status: Acute Assessment and Plan: Counseled and educated on therapeutic lifestyle changes for weight loss as it will be of benefit in controlling comorbidities. Distribution Clerk evaluation advised. DVT Prophylaxis: Heparin SC - Time Spent with Patient Total time spent is greater than 50% in coordination of care (as documented) at patient's floor/unit and/or counseling patient: 30 minutes 25 - 35 minutes Plan of Care Discussed with: patient Internal Medicine: Result - Labs CBC & Chem 7: 01/13/19 05:31 01/13/19 05:31 Labs: Short CBC 01/12/19 01/13/19 Range/Units 19:36 05:31 WBC 15.7 H 11.6 H (4.3-11.1) K/mcL Hgb 12.4 11.3 L (11.5-15.4) g/dL Hct 36.2 33.6 L (35.3-44.9) % Plt Count 298 278 (140-400) K/mcL Neutrophils # 11.4 H 7.9 (1.6-8.9) K/mcL BMP 01/12/19 01/13/19 19:36 05:31 Sodium 130 L 139 D Potassium 4.2 3.7 Chloride 99 106 Carbon Dioxide 22 L 23 BUN 22 H 15 Creatinine 0.71 0.58 L Glucose 214 H 77 Calcium 9.4 8.6 Cardiac Enzymes 01/12/19 Range/Units 19:36 Troponin I < 0.03 (< 0.04) ng/mL Liver Function 01/12/19 Range/Units 19:36 Total Bilirubin 0.4 (0.3-1.0) mg/dL Direct Bilirubin 0.0 (0.0-0.2) mg/dL AST 21 (13-39) Units/L ALT 22 (7-52) Units/L Alkaline Phosphatase 185 H (34-104) Units/L Albumin 3.6 (3.5-5.7) g/dL Urine 01/12/19 Range/Units 20:17 Urine Color Yellow (Yellow) Urine Clarity Clear (Clear) Urine pH 6.0 (5.0-8.0) pH Units Ur Specific [place] 1.018 (1.010-1.025) Urine Protein Negative (Neg-Trace) mg/dL Urine Glucose (UA) >=1000 H (Normal) mg/dL - ABG Interpretation ABG results: PT/INR, D-dimer PT 11.6 Seconds (9.4-12.1) 01/12/19 19:36 - Impressions Impressions Lower Extremity CT 01/12/19 19:27 IMPRESSION: 1. Circumferential subcutaneous fat stranding of the right calf extending over the dorsum of the midfoot and forefoot compatible with cellulitis versus lymphedema. No drainable fluid collection. 2. No acute osseous abnormality. D/ / Jamie Mendoza MD / Jamie Mendoza MD Interpreting Provider: Jamie Mendoza MD Consult Discharge Plan - Plan Additional Instructions: 1. Apply triple antibiotic and bandaid daily to the right 1st toe wound after discharge. Can shower normally. 2. Follow up with Dr. Og Manning 1 week after discharge. 3. Complete PO antibiotics as prescribed after discharge. Referrals: Og Manning DPM [Partnered Physician] - Carolyn Mendiola CNP [Primary Care Provider] - (2) Diabetes mellitus Qualifiers: Diabetes mellitus type: type 2 Diabetes mellitus penitentiary insulin use: unspecified penitentiary insulin use status Diabetes mellitus complication status: with unspecified complications Qualified Code(s): E11.8 - Type 2 diabetes mellitus with unspecified complications (4) Obesity Qualifiers: Obesity type: due to excess calories Obesity classification: adult class 2 (BMI 35 - 39.9) Serious obesity comorbidity presence: with serious comorbidity Body mass index: BMI 35.0-35.9 Qualified Code(s): E66.01 - Morbid (severe) obesity due to excess calories; Z68.35 - Body mass index (BMI) 35.0-35.9, adult
[2019-01-13] MEDS: Lisinopril 20 MG TABLET PO SCH (13:06)
[2019-01-13] MEDS: *HR* OxyCODONE Immed Rel 5 MG TABLET PO PRN (17:03)
[2019-01-14] MEDS: *HR* Heparin 5,000 UNIT/ML VIAL SQ SCH ×2 (05:01→16:32)
[2019-01-14 06:13] LABS: Estimated Average Glucose 272 mg/dl; Hemoglobin A1C 11.1 %
[2019-01-14 06:28] LABS: Basophils # 0.1 K/mcL (0.0-0.2); Basophils % 0.5 %; Eosinophils # 0.5 K/mcL (0.0-0.6); Eosinophils % 5.1 %; Hematocrit 32.8 % (35.3-44.9); Hemoglobin 11.2 g/dL (11.5-15.4); Immature Granulocytes % 0.8 % (0-4); Lymphocytes % 21.5 %; Mean Corpuscular HGB Conc 34.1 g/dL (31.6-35.5); Mean Corpuscular Hemoglobin 29.6 pg (28.0-33.3); Mean Corpuscular Volume 86.8 fL (83.0-100.0); Mean Platelet Volume 9.9 fL (9.4-12.4); Monocytes # 0.6 K/mcL (0.0-1.3); Monocytes % 6.3 %; Neutrophils # 6.1 K/mcL (1.6-8.9); Platelet Count 268 K/mcL (140-400); Red Blood Count 3.78 M/mcL (3.82-4.97); Red Cell Distribution Width 13.7 % (11.5-14.5); Segmented Neutrophils % 65.8 %
[2019-01-14 06:38] LABS: BUN/Creatinine Ratio 19 (6-26); Blood Urea Nitrogen 12 mg/dL (6-20); Calcium 8.7 mg/dL (8.6-10.3); Carbon Dioxide 22 mEq/L (23-29); Chloride 106 mEq/L (98-107); Glucose 83 mg/dL (70-105); Osmolality,Calculated 281 (280-300); Sodium 136 mEq/L (136-145); eGFR For Non-African Americans > 60 (> 60)
--- NOTE | 2019-01-14 08:30 | Podiatry Progress Note ---
Date of Encounter: 01/14/19 Time of Encounter: 08:28 - Assessment and Plan (1) Paronychia Current Visit: Yes Status: Acute 1. Patient evaluated and treated. The cellulitis has not improved after avulsion and IV antibiotics. There are no other obvious wounds or sources of the infection. CT right foot showed no evidence of soft tissue gas or abscess, but MRI will be considered if clinical picture does not improve over next 24 hours. Cultures pending. Continue with IV antibiotic for now. Will likely discharge on PO antibiotics once cellulitis has improved. Wound irrigated with NS, then covered with adaptic and dry dressing. SNOMED Code(s): 21814933 (2) Cellulitis of great toe of right foot Current Visit: Yes Status: Inactive 1. Continue with IV antibiotics until cellulitis improved. Rest and elevation recommended. Subjective Principal diagnosis: right 1st toe infection Interval history: Patient progressing well POD 1 s/p right 1st toenail avulsion. Cultures pending. She notes continued pain in the 1st toe, but is unsure if this is due to neuropathy. She denies n/v/f/c. Dressing is intact. Still on IV antibiotics at this time. Objective - Vital Signs Vital Signs: Vital Signs Temp Pulse Resp BP Pulse Ox 01/14/19 07:03 98.6 F 82 16 147/84 99 01/14/19 03:50 98 F 82 16 103/66 98 01/13/19 23:09 98.3 F 85 17 118/65 95 01/13/19 19:34 98.1 F 94 17 117/75 97 01/13/19 16:22 98.3 F 92 18 148/85 99 01/13/19 11:56 98.4 F 93 18 146/84 98 Intake and Output 01/13/19 01/14/19 01/14/19 23:59 07:59 15:59 Intake Total 590 / 590 350 / 350 Balance 590 / 590 350 / 350 Intake: IV Fluids 350 / 350 350 / 350 Zosyn 3.375 GM In 0.9 % Sodium 100 / 100 100 / 100 Chloride (Mini-Bag +) 100 ML @ 25 mls/hr IVPB Q8HR [facility]INO Rx#: [id number] Vancocin 1,000 MG In 0.9 % 250 / 250 250 / 250 Sodium Chloride 250 ML @ 167 mls/hr IVPB Q12H [facility]INO Rx#: [id number] Oral 240 / 240 Other: Meal Dinner Percent of Meal Consumed 100% # Voids 1 Weight 93.2 kg Blood Glucose* 108 86 - Exam Exam: Constitutional: Alert, oriented x3, no acute distress. Vascular: DP and PT palpable bilateral. Capillary refill less than 3 seconds to all digits. Skin temperature warm to touch right first toe compared to leg. Dermatology: Right hallux nail avulsed. No active drainage or with palpation of the distal digit. Erythema extending proximally to level of MPJ, no improvement. No crepitus. No other wounds or lesions. Musculoskeletal: Tenderness with palpation right 1st toenail bed. Neuro: Sensations diminished to light touch bilateral lower extremity. - Lab Result Diagrams: 01/14/19 06:03 01/14/19 06:03 Labs: Abnormal lab results RBC 3.78 M/mcL (3.82-4.97) L 01/14/19 06:03 Hgb 11.2 g/dL (11.5-15.4) L 01/14/19 06:03 Hct 32.8 % (35.3-44.9) L 01/14/19 06:03 Carbon Dioxide 22 mEq/L (23-29) L 01/14/19 06:03 POC Glucose 108 mg/dL (70-99) H 01/13/19 19:38 Hemoglobin A1c 11.1 % (-5.6) H 01/13/19 05:31 Alkaline Phosphatase 185 Units/L (34-104) H 01/12/19 19:36 Globulin 3.9 g/dL (2.4-3.5) H 01/12/19 19:36 Albumin/Globulin Ratio 0.9 (1.1-2.2) L 01/12/19 19:36 Urine Glucose (UA) >=1000 mg/dL (Normal) H 01/12/19 20:17 Ur Leukocyte Esterase Trace (Negative) H 01/12/19 20:17 Urine Microscopic WBC 5-15 per hpf (0-3) H 01/12/19 20:17 Ur Squamous Epith Cells Many per lpf (None-Few) H 01/12/19 20:17 Ur Culture Indicated? NO. (NO) A 01/12/19 20:17 Microbiology, Last 48 Hours 01/13/19 12:00 Wound Culture - Preliminary Abscess Culture is incubating. 01/13/19 12:00 Anaerobic Culture - Preliminary Abscess Culture is incubating. 01/12/19 19:25 Blood Culture - Preliminary Peripheral Venipuncture Culture is incubating and being continuously monito red for growth. Final report to follow. 01/12/19 19:36 Blood Culture - Preliminary Peripheral Venipuncture Culture is incubating and being continuously monitored for growth. Final report to follow. Consult Discharge Plan - Plan Additional Instructions: 1. Apply triple antibiotic and bandaid daily to the right 1st toe wound after discharge. Can shower normally. 2. Follow up with Dr. Og Manning 1 week after discharge. 3. Complete PO antibiotics as prescribed after discharge. Referrals: Og Manning DPM [Partnered Physician] - Carolyn Mendiola CNP [Primary Care Provider] -
[2019-01-14] MEDS: *HR* OxyCODONE Immed Rel 5 MG TABLET PO PRN ×2 (09:24→16:18)
[2019-01-14] MEDS: Lisinopril 20 MG TABLET PO SCH (09:24)
[2019-01-14] MEDS: Piperacillin/Tazobactam 3.375 GM in 0.9 % Sodium Chloride Mini Bag 100 ML IVPB SCH ×3 (09:25→23:13)
[2019-01-14] MEDS: Insulin LISPRO 300 UNITS/3 ML VIAL SQ SCH ×4 (09:26→21:56)
--- NOTE | 2019-01-14 11:48 | Internal Med Progress Note ---
Hospitalist Progress Note - Encounter Date of Encounter: 01/14/19 Time of Encounter: 09:00 - Subjective Interval History: Patient has no fever but feels chills. Minimal right big toe pain. Otherwise no complaints. - Exam Vitals: Temp Pulse Resp BP Pulse Ox 98.7 F 76 17 133/86 94 01/14/19 11:24 01/14/19 11:24 01/14/19 11:24 01/14/19 11:24 01/14/19 11:24 Exam: Vitals: Reviewed General: Obese white woman lying in bed in NAD Skin: Warm and supple. HEENT: Moist mucous membranes. No conjunctivae pallor. Neck: No lymphadenopathy. No JVD. No carotid bruits. No palpable thyroid. Chest: Normal thoracic expansion. Normal breath sounds. Clear to auscultation. Heart: Normal S1 & S2; rhythmic. No rubs or murmurs. Abdomen: Non-distended, soft and non-tender to palpation. No peritoneal reaction. Extremities: No clubbing, cyanosis. Right big toe s/p nail removal, well dressed. No calf tenderness. Normal distal pulses. Neurological: Awake, alert and oriented to person, place and time. No focal deficits. Psych: Affect appropriate. - Assessment and Plan (1) Essential hypertension Current Visit: Yes Status: Chronic Assessment and Plan: Resume antihypertensive once reconciled. (2) Diabetes mellitus Current Visit: Yes Status: Chronic Assessment and Plan: Continue sliding scale insulin coverage (3) Cellulitis of great toe of right foot Current Visit: Yes Status: Inactive Assessment and Plan: Likely secondary to traumatic injury induced by her nail-cutting. Podiatry saw patient at bedside. Did first toe nail removal Continue vancomycin/zosyn. Follow-up of blood and wound culture (4) Obesity Current Visit: Yes Status: Acute Assessment and Plan: Counseled and educated on therapeutic lifestyle changes for weight loss as it will be of benefit in controlling comorbidities. Rig Mechanic evaluation advised. DVT Prophylaxis: Heparin SC - Time Spent with Patient Total time spent is greater than 50% in coordination of care (as documented) at patient's floor/unit and/or counseling patient: 30 minutes 25 - 35 minutes Plan of Care Discussed with: patient Internal Medicine: Result - Labs CBC & Chem 7: 01/14/19 06:03 01/14/19 06:03 Labs: Short CBC 01/14/19 Range/Units 06:03 WBC 9.3 (4.3-11.1) K/mcL Hgb 11.2 L (11.5-15.4) g/dL Hct 32.8 L (35.3-44.9) % Plt Count 268 (140-400) K/mcL Neutrophils # 6.1 (1.6-8.9) K/mcL BMP 01/14/19 06:03 Sodium 136 Potassium 4.0 Chloride 106 Carbon Dioxide 22 L BUN 12 Creatinine 0.64 Glucose 83 Calcium 8.7 - ABG Interpretation ABG results: PT/INR, D-dimer PT 11.6 Seconds (9.4-12.1) 01/12/19 19:36 Consult Discharge Plan - Plan Additional Instructions: 1. Apply triple antibiotic and bandaid daily to the right 1st toe wound after discharge. Can shower normally. 2. Follow up with Dr. Og Manning 1 week after discharge. 3. Complete PO antibiotics as prescribed after discharge. Referrals: Og Manning, DPM [Partnered Physician] - Carolyn Mendiola, CREATIVE COORDINATOR [Primary Care Provider] - (2) Diabetes mellitus Qualifiers: Diabetes mellitus type: type 2 Diabetes mellitus snf insulin use: unspecified snf insulin use status Diabetes mellitus complication status: with unspecified complications Qualified Code(s): E11.8 - Type 2 diabetes mellitus with unspecified complications (4) Obesity Qualifiers: Obesity type: due to excess calories Obesity classification: adult class 2 (BMI 35 - 39.9) Serious obesity comorbidity presence: with serious comorbidity Body mass index: BMI 35.0-35.9 Qualified Code(s): E66.01 - Morbid (severe) obesity due to excess calories; Z68.35 - Body mass index (BMI) 35.0-35.9, adult
[2019-01-15] MEDS: *HR* Heparin 5,000 UNIT/ML VIAL SQ SCH ×2 (05:08→17:50)
[2019-01-15 06:26] LABS: Basophils # 0.1 K/mcL (0.0-0.2); Basophils % 0.8 %; Eosinophils # 0.5 K/mcL (0.0-0.6); Eosinophils % 5.1 %; Hematocrit 34.6 % (35.3-44.9); Hemoglobin 11.7 g/dL (11.5-15.4); Immature Granulocytes % 1.5 % (0-4); Lymphocytes # 2.2 K/mcL (0.6-4.6); Mean Corpuscular HGB Conc 33.8 g/dL (31.6-35.5); Mean Corpuscular Hemoglobin 29.4 pg (28.0-33.3); Mean Corpuscular Volume 86.9 fL (83.0-100.0); Mean Platelet Volume 9.8 fL (9.4-12.4); Monocytes # 0.5 K/mcL (0.0-1.3); Monocytes % 6.2 %; Neutrophils # 5.4 K/mcL (1.6-8.9); Platelet Count 285 K/mcL (140-400); Red Blood Count 3.98 M/mcL (3.82-4.97); Segmented Neutrophils % 61.4 %
[2019-01-15 06:45] LABS: BUN/Creatinine Ratio 24 (6-26); Blood Urea Nitrogen 20 mg/dL (6-20); Calcium 8.9 mg/dL (8.6-10.3); Carbon Dioxide 22 mEq/L (23-29); Chloride 106 mEq/L (98-107); Glucose 186 mg/dL (70-105); Osmolality,Calculated 291 (280-300); Potassium 4.1 mEq/L (3.5-5.1); Sodium 137 mEq/L (136-145); eGFR For Non-African Americans > 60 (> 60)
[2019-01-15] MEDS ORDERED: D5% in Water 1,000 ML IVC PRN (07:26)
[2019-01-15] MEDS ORDERED: Lisinopril 20 MG TABLET PO SCH (09:00)
[2019-01-15] MEDS: Piperacillin/Tazobactam 3.375 GM in 0.9 % Sodium Chloride Mini Bag 100 ML IVPB SCH ×2 (09:06→15:26)
[2019-01-15] MEDS: Insulin LISPRO 300 UNITS/3 ML VIAL SQ SCH ×4 (09:07→20:27)
--- NOTE | 2019-01-15 09:40 | Podiatry Progress Note ---
Date of Encounter: 01/15/19 Time of Encounter: 09:36 - Assessment and Plan (1) Paronychia Current Visit: Yes Status: Acute Assessment: Paronychia right hallux s/p nail avulsion 01/13 No improvement noted to right hallux erythema WBC 8.8 Wound culture negative, anaerobic culture pending, blood cultures pending Plan: Continue IV ATB Will order MRI for further evaluation May need to plan for OR for further debridement if no improvement after 24 hours of IV ATB and MRI results Cleansed with 0.9 NS, covered with adaptic, 4x4 dry gauze, and coban. Will order daily soaks of right foot (2) Diabetes mellitus Current Visit: Yes Status: Chronic Assessment: HGB A1C 11.1 Plan: Tight glycemic control- primary managing Discussed diet and goal of A1C less than 7.0 to promote wound healing Qualifiers: Diabetes mellitus type: type 2 Diabetes mellitus intermediate accountant insulin use: unspecified chcf insulin use status Diabetes mellitus complication status: with unspecified complications Qualified Code(s): E11.8 - Type 2 diabetes mellitus with unspecified complications Subjective Principal diagnosis: right 1st toe infection Interval history: Patient awake in bed. Alert and oriented x 3. Patient reports pain 2/10. Denies fevers, chills, nausea, vomiting, or diarrhea. Denies chest pain, calf pain, or shortness of breath. No other questions or concerns at this time. Objective - Vital Signs Vital Signs: Vital Signs Temp Pulse Resp BP Pulse Ox 01/15/19 07:49 98.0 F 82 16 147/84 98 01/15/19 04:36 98.0 F 81 14 125/75 97 01/14/19 23:52 98.0 F 81 14 122/73 94 01/14/19 19:38 98.4 F 85 18 142/84 97 01/14/19 16:10 98.2 F 99 18 132/80 96 01/14/19 11:24 98.7 F 76 17 133/86 94 Intake and Output 01/14/19 01/15/19 01/15/19 23:59 07:59 15:59 Intake Total 590 / 590 1350 / 1350 240 / 240 Balance 590 / 590 1350 / 1350 240 / 240 Intake: IV Fluids 350 / 350 350 / 350 Zosyn 3.375 GM In 0.9 % Sodium 100 / 100 100 / 100 Chloride (Mini-Bag +) 100 ML @ 25 mls/hr IVPB Q8HR [facility] Rx#: [id number] Vancocin 1,000 MG In 0.9 % 250 / 250 250 / 250 Sodium Chloride 250 ML @ 167 mls/hr IVPB Q12H [facility] Rx#: [id number] Oral 240 / 240 1000 / 1000 240 / 240 Other: Meal Breakfast Percent of Meal Consumed 70% 95% Weight 93.4 kg Blood Glucose* 162 164 Patient Weight 01/15/19 23:59 Weight 93.4 kg - Exam Exam: Constitiutional: Alert and oriented x 3. Well nourished. No acute distress noted Vascular: 1/4 DP/PT RLE, CFT <3 sec to all digits, warm to warm from tibia to toes RLE, no calf pain with squeeze RLE, 1/4 RLE edema Neurologic: Sensation to touch, normal plantar response, Normal position sense dorsiflexion/plantar flexion Dermatologic: Skin W/D/I. Erythema noted to right hallux and right midfoot. Edema noted to right midfoot and right malleolus / Musculoskeletal: 5/5 muscle strength and normal tone bilaterally. - Lab Result Diagrams: 01/15/19 05:25 01/15/19 05:25 Labs: Abnormal lab results Hct 34.6 % (35.3-44.9) L 01/15/19 05:25 Carbon Dioxide 22 mEq/L (23-29) L 01/15/19 05:25 Glucose 186 mg/dL (70-105) H 01/15/19 05:25 Hemoglobin A1c 11.1 % (-5.6) H 01/13/19 05:31 Alkaline Phosphatase 185 Units/L (34-104) H 01/12/19 19:36 Globulin 3.9 g/dL (2.4-3.5) H 01/12/19 19:36 Albumin/Globulin Ratio 0.9 (1.1-2.2) L 01/12/19 19:36 Urine Glucose (UA) >=1000 mg/dL (Normal) H 01/12/19 20:17 Ur Leukocyte Esterase Trace (Negative) H 01/12/19 20:17 Urine Microscopic WBC 5-15 per hpf (0-3) H 01/12/19 20:17 Ur Squamous Epith Cells Many per lpf (None-Few) H 01/12/19 20:17 Ur Culture Indicated? NO. (NO) A 01/12/19 20:17 Vancomycin Trough 13 mcg/mL (5-10) H 01/14/19 14:20 Microbiology, Last 48 Hours 01/13/19 12:00 Wound Culture - Preliminary Abscess No pathogens isolated. 01/13/19 12:00 Anaerobic Culture - Preliminary Abscess Culture is incubating. Consult Discharge Plan - Plan Additional Instructions: 1. Apply triple antibiotic and bandaid daily to the right 1st toe wound after discharge. Can shower normally. 2. Follow up with Dr. Og Manning 1 week after discharge. 3. Complete PO antibiotics as prescribed after discharge. Referrals: Og Manning DPM [Partnered Physician] - 01/25/19 1:00 pm (Please follow up as schedule...) Carolyn Mendiola CNP [Primary Care Provider] - 01/19/19 10:00 am (Please follow up as schedule....)
[2019-01-15] MEDS ORDERED: Gadolinium Contrast Agent (WT Based) IV PRN (09:47)
[2019-01-15] MEDS: *HR* OxyCODONE Immed Rel 5 MG TABLET PO PRN ×2 (12:59→20:27)
--- NOTE | 2019-01-15 14:43 | Internal Med Progress Note ---
Hospitalist Progress Note - Encounter Date of Encounter: 01/15/19 Time of Encounter: 09:00 - Subjective Interval History: Patient has no fever. Had minimal right big toe pain. No pain medication needed. Vitals are stable - Exam Vitals: Temp Pulse Resp BP Pulse Ox 98.1 F 90 17 144/79 93 01/15/19 11:24 01/15/19 11:24 01/15/19 11:24 01/15/19 11:24 01/15/19 11:24 Exam: Vitals: Reviewed General: Obese white woman lying in bed in NAD Skin: Warm and supple. HEENT: Moist mucous membranes. No conjunctivae pallor. Neck: No lymphadenopathy. No JVD. No carotid bruits. No palpable thyroid. Chest: Normal thoracic expansion. Normal breath sounds. Clear to auscultation. Heart: Normal S1 & S2; rhythmic. No rubs or murmurs. Abdomen: Non-distended, soft and non-tender to palpation. No peritoneal reaction. Extremities: No clubbing, cyanosis. Right big toe s/p nail removal, well dressed. No calf tenderness. Normal distal pulses. Neurological: Awake, alert and oriented to person, place and time. No focal deficits. Psych: Affect appropriate. - Assessment and Plan (1) Essential hypertension Current Visit: Yes Status: Chronic Assessment and Plan: Resume antihypertensive at home dose (2) Diabetes mellitus Current Visit: Yes Status: Chronic Assessment and Plan: Continue sliding scale insulin coverage (3) Cellulitis of great toe of right foot Current Visit: Yes Status: Inactive Assessment and Plan: Likely secondary to traumatic injury induced by her nail-cutting. Podiatry saw patient at bedside. Did first toe nail removal Continue vancomycin/zosyn. Follow-up of blood and wound culture Per podiatry, will take MRI today and may need further debridement. (4) Obesity Current Visit: Yes Status: Acute Assessment and Plan: Counseled and educated on therapeutic lifestyle changes for weight loss as it will be of benefit in controlling comorbidities. Datastage Consultant evaluation advised. DVT Prophylaxis: Heparin SC - Time Spent with Patient Total time spent is greater than 50% in coordination of care (as documented) at patient's floor/unit and/or counseling patient: 30 minutes 25 - 35 minutes Plan of Care Discussed with: patient Internal Medicine: Result - Labs CBC & Chem 7: 01/15/19 05:25 01/15/19 05:25 Labs: Short CBC 01/15/19 Range/Units 05:25 WBC 8.8 (4.3-11.1) K/mcL Hgb 11.7 (11.5-15.4) g/dL Hct 34.6 L (35.3-44.9) % Plt Count 285 (140-400) K/mcL Neutrophils # 5.4 (1.6-8.9) K/mcL BMP 01/15/19 05:25 Sodium 137 Potassium 4.1 Chloride 106 Carbon Dioxide 22 L BUN 20 Creatinine 0.84 Glucose 186 H Calcium 8.9 - ABG Interpretation ABG results: PT/INR, D-dimer PT 11.6 Seconds (9.4-12.1) 01/12/19 19:36 Consult Discharge Plan - Plan Additional Instructions: 1. Apply triple antibiotic and bandaid daily to the right 1st toe wound after discharge. Can shower normally. 2. Follow up with Dr. Og Manning 1 week after discharge. 3. Complete PO antibiotics as prescribed after discharge. Referrals: Og Manning, DPM [Partnered Physician] - 01/25/19 1:00 pm (Please follow up as schedule...) Carolyn Mendiola CNP [Primary Care Provider] - 01/19/19 10:00 am (Please follow up as schedule....) (2) Diabetes mellitus Qualifiers: Diabetes mellitus type: type 2 Diabetes mellitus termite treater insulin use: unspecified termite treater insulin use status Diabetes mellitus complication status: with unspecified complications Qualified Code(s): E11.8 - Type 2 diabetes mellitus with unspecified complications (4) Obesity Qualifiers: Obesity type: due to excess calories Obesity classification: adult class 2 (BMI 35 - 39.9) Serious obesity comorbidity presence: with serious comorbidity Body mass index: BMI 35.0-35.9 Qualified Code(s): E66.01 - Morbid (severe) obesity due to excess calories; Z68.35 - Body mass index (BMI) 35.0-35.9, adult
[2019-01-16] MEDS: Piperacillin/Tazobactam 3.375 GM in 0.9 % Sodium Chloride Mini Bag 100 ML IVPB SCH ×3 (00:30→15:44)
[2019-01-16] MEDS: *HR* Heparin 5,000 UNIT/ML VIAL SQ SCH ×2 (04:51→16:52)
[2019-01-16 05:30] LABS: Basophils # 0.1 K/mcL (0.0-0.2); Eosinophils # 0.4 K/mcL (0.0-0.6); Eosinophils % 4.8 %; Hematocrit 34.7 % (35.3-44.9); Hemoglobin 11.4 g/dL (11.5-15.4); Immature Granulocytes % 1.6 % (0-4); Lymphocytes # 2.3 K/mcL (0.6-4.6); Lymphocytes % 28.4 %; Mean Corpuscular HGB Conc 32.9 g/dL (31.6-35.5); Mean Corpuscular Hemoglobin 29.2 pg (28.0-33.3); Mean Platelet Volume 9.5 fL (9.4-12.4); Monocytes # 0.6 K/mcL (0.0-1.3); Monocytes % 6.7 %; Neutrophils # 4.7 K/mcL (1.6-8.9); Platelet Count 292 K/mcL (140-400); Red Cell Distribution Width 13.8 % (11.5-14.5); Segmented Neutrophils % 57.5 %
[2019-01-16 05:49] LABS: BUN/Creatinine Ratio 31 (6-26); Blood Urea Nitrogen 20 mg/dL (6-20); Calcium 8.6 mg/dL (8.6-10.3); Carbon Dioxide 21 mEq/L (23-29); Chloride 106 mEq/L (98-107); Glucose 219 mg/dL (70-105); Osmolality,Calculated 291 (280-300); Potassium 4.2 mEq/L (3.5-5.1); Sodium 136 mEq/L (136-145); eGFR For Non-African Americans > 60 (> 60)
[2019-01-16] MEDS: Insulin LISPRO 300 UNITS/3 ML VIAL SQ SCH ×5 (08:29→21:08)
[2019-01-16] MEDS: Lisinopril 20 MG TABLET PO SCH (08:30)
[2019-01-16] MEDS: amLODIPine 5 MG TABLET PO SCH (08:31)
--- NOTE | 2019-01-16 11:40 | Podiatry Progress Note ---
Date of Encounter: 01/16/19 Time of Encounter: 11:38 - Assessment and Plan (1) Paronychia Current Visit: Yes Status: Acute Assessment: Paronychia right hallux s/p nail avulsion 01/[address] Manning No improvement noted to right hallux erythema WBC 8.2 Wound culture negative, anaerobic culture negative, blood cultures pending, negative at this time MRI not yet complete Plan: Continue IV ATB Awaiting MRI results May need to plan for OR for further debridement pending MRI results Cleansed with 0.9 NS, covered with adaptic, 4x4 dry gauze, and coban. Continue soaks right foot (2) Diabetes mellitus Current Visit: Yes Status: Chronic Assessment: HGB A1C 11.1 Plan: Tight glycemic control- primary managing Discussed diet and goal of A1C less than 7.0 to promote wound healing Qualifiers: Qualified Code(s): E11.8 - Type 2 diabetes mellitus with unspecified complications Subjective Principal diagnosis: right 1st toe infection Interval history: Patient awake in bed. Alert and oriented x 3. Patient reports pain 2/10. Denies fevers, chills, nausea, vomiting, or diarrhea. Denies chest pain, calf pain, or shortness of breath. Reports has not gotten MRI at this time. No other questions or concerns at this time. Objective - Vital Signs Vital Signs: Vital Signs Temp Pulse Resp BP Pulse Ox 01/16/19 09:00 95 01/16/19 07:34 98.0 F 80 18 136/82 95 01/16/19 03:53 98.1 F 81 17 112/69 95 01/15/19 23:39 97.9 F 84 16 125/73 95 01/15/19 18:50 97.5 F L 93 18 166/92 98 01/15/19 16:23 98.0 F 94 16 147/78 94 Intake and Output 01/15/19 01/16/19 01/16/19 23:59 07:59 15:59 Intake Total 590 / 590 100 / 100 240 / 240 Output Total 0 / 0 Balance 590 / 590 100 / 100 240 / 240 Intake: IV Fluids 350 / 350 100 / 100 Zosyn 3.375 GM In 0.9 % Sodium 100 / 100 100 / 100 Chloride (Mini-Bag +) 100 ML @ 25 mls/hr IVPB Q8HR [facility] Rx#: [id number] Vancocin 1,000 MG In 0.9 % 250 / 250 Sodium Chloride 250 ML @ 167 mls/hr IVPB Q12H [facility] Rx#: [id number] Oral 240 / 240 240 / 240 Output: Urine 0 / 0 Other: Meal Dinner Breakfast Percent of Meal Consumed 100% 50% # Voids 1 Blood Glucose* 257 206 - Exam Exam: Constitiutional: Alert and oriented x 3. Well nourished. No acute distress noted Vascular: 1/4 DP/PT RLE, CFT <3 sec to all digits, warm to warm from tibia to toes RLE, no calf pain with squeeze RLE, 1/4 RLE edema Neurologic: Sensation to touch, normal plantar response, Normal position sense dorsiflexion/plantar flexion Dermatologic: Skin W/D/I. Erythema noted to right hallux and right midfoot, right midfoot erythema improving. Edema noted to right midfoot and right malleolus / Musculoskeletal: 5/5 muscle strength and normal tone bilaterally. - Lab Result Diagrams: 01/16/19 04:50 01/16/19 04:50 Labs: Abnormal lab results Hgb 11.4 g/dL (11.5-15.4) L 01/16/19 04:50 Hct 34.7 % (35.3-44.9) L 01/16/19 04:50 Carbon Dioxide 21 mEq/L (23-29) L 01/16/19 04:50 BUN/Creatinine Ratio 31 (6-26) H 01/16/19 04:50 Glucose 219 mg/dL (70-105) H 01/16/19 04:50 POC Glucose 206 mg/dL (70-99) H 01/16/19 07:32 Hemoglobin A1c 11.1 % (-5.6) H 01/13/19 05:31 Alkaline Phosphatase 185 Units/L (34-104) H 01/12/19 19:36 Globulin 3.9 g/dL (2.4-3.5) H 01/12/19 19:36 Albumin/Globulin Ratio 0.9 (1.1-2.2) L 01/12/19 19:36 Urine Glucose (UA) >=1000 mg/dL (Normal) H 01/12/19 20:17 Ur Leukocyte Esterase Trace (Negative) H 01/12/19 20:17 Urine Microscopic WBC 5-15 per hpf (0-3) H 01/12/19 20:17 Ur Squamous Epith Cells Many per lpf (None-Few) H 01/12/19 20:17 Ur Culture Indicated? NO. (NO) A 01/12/19 20:17 Vancomycin Trough 13 mcg/mL (5-10) H 01/14/19 14:20 Microbiology, Last 48 Hours 01/13/19 12:00 Wound Culture - Final Abscess No pathogens isolated. 01/13/19 12:00 Anaerobic Culture - Preliminary Abscess At this time, no anaerobic growth is present. The culture will be finalized after 5 days of incubation. Consult Discharge Plan - Plan Additional Instructions: 1. Apply triple antibiotic and bandaid daily to the right 1st toe wound after discharge. Can shower normally. 2. Follow up with Dr. Og Manning 1 week after discharge. 3. Complete PO antibiotics as prescribed after discharge. Referrals: Og Manning DPM [Partnered Physician] - 01/25/19 1:00 pm (Please follow up as schedule...) Carolyn Mendiola CNP [Primary Care Provider] - 01/19/19 10:00 am (Please follow up as schedule....)
--- NOTE | 2019-01-16 11:40 | Internal Med Progress Note ---
Hospitalist Progress Note - Encounter Date of Encounter: 01/16/19 Time of Encounter: 09:00 - Subjective Interval History: Patient has no fever. Had minimal right big toe pain. In no acute distress. - Exam Vitals: Temp Pulse Resp BP Pulse Ox 98.0 F 80 18 136/82 95 01/16/19 07:34 01/16/19 07:34 01/16/19 07:34 01/16/19 07:34 01/16/19 09:00 Exam: Vitals: Reviewed General: Obese white woman lying in bed in NAD Skin: Warm and supple. HEENT: Moist mucous membranes. No conjunctivae pallor. Neck: No lymphadenopathy. No JVD. No carotid bruits. No palpable thyroid. Chest: Normal thoracic expansion. Normal breath sounds. Clear to auscultation. Heart: Normal S1 & S2; rhythmic. No rubs or murmurs. Abdomen: Non-distended, soft and non-tender to palpation. No peritoneal reaction. Extremities: No clubbing, cyanosis. Right big toe s/p nail removal, well dressed. No calf tenderness. Normal distal pulses. Neurological: Awake, alert and oriented to person, place and time. No focal deficits. Psych: Affect appropriate. - Assessment and Plan (1) Essential hypertension Current Visit: Yes Status: Chronic Assessment and Plan: Resume antihypertensive at home dose (2) Diabetes mellitus Current Visit: Yes Status: Chronic Assessment and Plan: Continue sliding scale insulin coverage (3) Cellulitis of great toe of right foot Current Visit: Yes Status: Inactive Assessment and Plan: Likely secondary to traumatic injury induced by her nail-cutting. Podiatry saw patient at bedside. Did first toe nail removal Continue vancomycin/zosyn. Follow-up of blood and wound culture Per podiatry, will take MRI and may need further debridement. (4) Obesity Current Visit: Yes Status: Acute Assessment and Plan: Counseled and educated on therapeutic lifestyle changes for weight loss as it will be of benefit in controlling comorbidities. Gaming Director evaluation advised. DVT Prophylaxis: Heparin SC - Time Spent with Patient Total time spent is greater than 50% in coordination of care (as documented) at patient's floor/unit and/or counseling patient: 30 minutes 25 - 35 minutes Plan of Care Discussed with: patient Internal Medicine: Result - Labs CBC & Chem 7: 01/16/19 04:50 01/16/19 04:50 Labs: Short CBC 01/16/19 Range/Units 04:50 WBC 8.2 (4.3-11.1) K/mcL Hgb 11.4 L (11.5-15.4) g/dL Hct 34.7 L (35.3-44.9) % Plt Count 292 (140-400) K/mcL Neutrophils # 4.7 (1.6-8.9) K/mcL BMP 01/16/19 04:50 Sodium 136 Potassium 4.2 Chloride 106 Carbon Dioxide 21 L BUN 20 Creatinine 0.65 Glucose 219 H Calcium 8.6 - ABG Interpretation ABG results: PT/INR, D-dimer PT 11.6 Seconds (9.4-12.1) 01/12/19 19:36 Consult Discharge Plan - Plan Additional Instructions: 1. Apply triple antibiotic and bandaid daily to the right 1st toe wound after discharge. Can shower normally. 2. Follow up with Dr. Og Manning 1 week after discharge. 3. Complete PO antibiotics as prescribed after discharge. Referrals: Og Manning, DPTarsha [Partnered Physician] - 01/25/19 1:00 pm (Please follow up as schedule...) Carolyn Mendiola CNP [Primary Care Provider] - 01/19/19 10:00 am (Please follow up as schedule....) (2) Diabetes mellitus Qualifiers: Diabetes mellitus type: type 2 Diabetes mellitus superintendent terminal insulin use: unspecified correction insulin use status Diabetes mellitus complication status: with unspecified complications Qualified Code(s): E11.8 - Type 2 diabetes mellitus with unspecified complications (4) Obesity Qualifiers: Obesity type: due to excess calories Obesity classification: adult class 2 (BMI 35 - 39.9) Serious obesity comorbidity presence: with serious comorbidity Body mass index: BMI 35.0-35.9 Qualified Code(s): E66.01 - Morbid (severe) obesity due to excess calories; Z68.35 - Body mass index (BMI) 35.0-35.9, adult
[2019-01-16] MEDS: *HR* OxyCODONE Immed Rel 5 MG TABLET PO PRN (21:08)
[2019-01-17] MEDS: Piperacillin/Tazobactam 3.375 GM in 0.9 % Sodium Chloride Mini Bag 100 ML IVPB SCH ×3 (00:25→14:57)
[2019-01-17 04:16] LABS: Basophils # 0.1 K/mcL (0.0-0.2); Eosinophils # 0.5 K/mcL (0.0-0.6); Hematocrit 33.4 % (35.3-44.9); Hemoglobin 11.3 g/dL (11.5-15.4); Immature Granulocytes % 1.7 % (0-4); Lymphocytes # 2.5 K/mcL (0.6-4.6); Lymphocytes % 27.2 %; Mean Corpuscular HGB Conc 33.8 g/dL (31.6-35.5); Mean Corpuscular Hemoglobin 29.7 pg (28.0-33.3); Mean Corpuscular Volume 87.9 fL (83.0-100.0); Mean Platelet Volume 9.8 fL (9.4-12.4); Monocytes # 0.6 K/mcL (0.0-1.3); Monocytes % 7.1 %; Neutrophils # 5.3 K/mcL (1.6-8.9); Platelet Count 289 K/mcL (140-400); Red Cell Distribution Width 13.8 % (11.5-14.5)
[2019-01-17 04:38] LABS: BUN/Creatinine Ratio 28 (6-26); Blood Urea Nitrogen 21 mg/dL (6-20); Calcium 8.7 mg/dL (8.6-10.3); Carbon Dioxide 24 mEq/L (23-29); Chloride 104 mEq/L (98-107); Glucose 262 mg/dL (70-105); Osmolality,Calculated 294 (280-300); Potassium 3.8 mEq/L (3.5-5.1); Sodium 136 mEq/L (136-145); eGFR For Non-African Americans > 60 (> 60)
[2019-01-17] MEDS: *HR* Heparin 5,000 UNIT/ML VIAL SQ SCH ×2 (07:15→16:40)
[2019-01-17] MEDS: Insulin LISPRO 300 UNITS/3 ML VIAL SQ SCH ×4 (07:49→21:12)
[2019-01-17] MEDS: amLODIPine 5 MG TABLET PO SCH (07:49)
[2019-01-17] MEDS: Lisinopril 20 MG TABLET PO SCH (07:49)
[2019-01-17] MEDS: Lactobacillus 1 EACH CAP.SPRINK PO SCH (07:53)
[2019-01-17 09:53] LABS: C-Reactive Protein 26 mg/L (Less than 10)
--- NOTE | 2019-01-17 10:23 | Internal Med Progress Note ---
Hospitalist Progress Note - Encounter Date of Encounter: 01/17/19 Time of Encounter: 09:00 - Subjective Interval History: Patient still has right big toe pain, occasionally need pain medication. No fever. No chills. Vitals are stable. - Exam Vitals: Temp Pulse Resp BP Pulse Ox 98.3 F 83 16 143/81 94 01/17/19 07:39 01/17/19 07:39 01/17/19 07:39 01/17/19 07:39 01/17/19 07:39 Exam: Vitals: Reviewed General: Obese white woman lying in bed in NAD Skin: Warm and supple. HEENT: Moist mucous membranes. No conjunctivae pallor. Neck: No lymphadenopathy. No JVD. No carotid bruits. No palpable thyroid. Chest: Normal thoracic expansion. Normal breath sounds. Clear to auscultation. Heart: Normal S1 & S2; rhythmic. No rubs or murmurs. Abdomen: Non-distended, soft and non-tender to palpation. No peritoneal reaction. Extremities: No clubbing, cyanosis. Right big toe s/p nail removal, well dressed. No calf tenderness. Normal distal pulses. Neurological: Awake, alert and oriented to person, place and time. No focal deficits. Psych: Affect appropriate. - Assessment and Plan (1) Essential hypertension Current Visit: Yes Status: Chronic Assessment and Plan: Resume antihypertensive at home dose (2) Diabetes mellitus Current Visit: Yes Status: Chronic Assessment and Plan: Continue sliding scale insulin coverage, add basal insulin for better glucose c ontrol (3) Cellulitis of great toe of right foot Current Visit: Yes Status: Inactive Assessment and Plan: Likely secondary to traumatic injury induced by her nail-cutting. Podiatry saw patient at bedside. Did first toe nail removal Continue vancomycin/zosyn. Blood and wound culture no growth so far MRI has been done, which shows cellulitis and concern for osteomyelitis, discussed with podiatry, plan for further surgery and ID consult. (4) Obesity Current Visit: Yes Status: Acute Assessment and Plan: Counseled and educated on therapeutic lifestyle changes for weight loss as it will be of benefit in controlling comorbidities. Jelly Filter Tender evaluation advised. DVT Prophylaxis: Heparin SC - Time Spent with Patient Total time spent is greater than 50% in coordination of care (as documented) at patient's floor/unit and/or counseling patient: 30 minutes 25 - 35 minutes Internal Medicine: Result - Labs CBC & Chem 7: 01/17/19 02:58 01/17/19 02:58 Labs: Short CBC 01/17/19 Range/Units 02:58 WBC 9.1 (4.3-11.1) K/mcL Hgb 11.3 L (11.5-15.4) g/dL Hct 33.4 L (35.3-44.9) % Plt Count 289 (140-400) K/mcL Neutrophils # 5.3 (1.6-8.9) K/mcL BMP 01/17/19 02:58 Sodium 136 Potassium 3.8 Chloride 104 Carbon Dioxide 24 BUN 21 H Creatinine 0.76 Glucose 262 H Calcium 8.7 - ABG Interpretation ABG results: PT/INR, D-dimer PT 11.6 Seconds (9.4-12.1) 01/12/19 19:36 - Impressions Impressions Foot MRI 01/15/19 09:47 IMPRESSION: Diffuse soft tissue edema without defined fluid collection. Marrow signal changes within the distal phalanx of the 1st digit concerning for osteomyelitis. D/ / Ivory Miranda MD / Ivory Miranda MD Interpreting Provider: Ivory Miranda MD Consult Discharge Plan - Plan Additional Instructions: 1. Apply triple antibiotic and bandaid daily to the right 1st toe wound after discharge. Can shower normally. 2. Follow up with Dr. Og Manning 1 week after discharge. 3. Complete PO antibiotics as prescribed after discharge. 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
[2019-01-17] MEDS: traMADol 50 MG TABLET PO PRN (11:42)
--- NOTE | 2019-01-17 11:51 | Podiatry Progress Note ---
Date of Encounter: 01/17/19 Time of Encounter: 11:00 - Assessment and Plan (1) Paronychia Current Visit: Yes Status: Acute Assessment: Paronychia right hallux s/p nail avulsion 01/[address] Manning Minimal improvement noted to right hallux erythema WBC 9.1 Wound culture negative, anaerobic culture negative, blood cultures pending, negative at this time MRI suspicious for OM- discussed with patient options regarding bone biopsy and/or right toe amputation. Patient verbalized understanding. Discussed will most likely need 6 week of IV ATB after surgery regardless. Patient states she would like to decide later this evening regarding biopsy vs amputation. 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 Alert and oriented x 3. Patient reports pain 2/10. Denies fevers, chills, nausea, vomiting, or diarrhea. Denies chest pain, calf pain, or shortness of breath. No other questions or concerns at this time. Objective - Vital Signs Vital Signs: Vital Signs Temp Pulse Resp BP Pulse Ox 01/17/19 11:28 97.7 F 90 16 159/82 93 01/17/19 07:39 98.3 F 83 16 143/81 94 01/17/19 03:52 98.0 F 79 16 129/79 99 01/17/19 00:10 98.2 F 91 16 128/76 94 01/16/19 19:06 97.6 F 95 16 168/87 96 01/16/19 16:22 98.1 F 96 16 160/92 97 Intake and Output 01/16/19 01/17/19 01/17/19 23:59 07:59 15:59 Intake Total 470 / 470 100 / 100 240 / 240 Output Total 0 / 0 Balance 470 / 470 100 / 100 240 / 240 Intake: IV Fluids 350 / 350 100 / 100 Zosyn 3.375 GM In 0.9 % Sodium 100 / 100 100 / 100 Chloride (Mini-Bag +) 100 ML @ 25 mls/hr IVPB Q8HR [facility] Rx#: [id number] Vancocin 1,000 MG In 0.9 % 250 / 250 Sodium Chloride 250 ML @ 167 mls/hr IVPB Q12H [facility] Rx#: [id number] Oral 120 / 120 240 / 240 Output: Urine 0 / 0 Other: Meal Dinner Breakfast Percent of Meal Consumed 100% 100% Weight 94.2 kg Blood Glucose* 251 222 382 Patient Weight 01/17/19 23:59 Weight 94.2 kg - Lab Result Diagrams: 01/17/19 02:58 01/17/19 02:58 Labs: Abnormal lab results RBC 3.80 M/mcL (3.82-4.97) L 01/17/19 02:58 Hgb 11.3 g/dL (11.5-15.4) L 01/17/19 02:58 Hct 33.4 % (35.3-44.9) L 01/17/19 02:58 ESR 41 mm/hr (0-15) H 01/17/19 02:58 BUN 21 mg/dL (6-20) H 01/17/19 02:58 BUN/Creatinine Ratio 28 (6-26) H 01/17/19 02:58 Glucose 262 mg/dL (70-105) H 01/17/19 02:58 POC Glucose 291 mg/dL (70-99) H 01/16/19 16:20 Hemoglobin A1c 11.1 % (-5.6) H 01/13/19 05:31 Alkaline Phosphatase 185 Units/L (34-104) H 01/12/19 19:36 C-Reactive Protein 26 mg/L (Less than 10) H 01/17/19 02:58 Globulin 3.9 g/dL (2.4-3.5) H 01/12/19 19:36 Albumin/Globulin Ratio 0.9 (1.1-2.2) L 01/12/19 19:36 Urine Glucose (UA) >=1000 mg/dL (Normal) H 01/12/19 20:17 Ur Leukocyte Esterase Trace (Negative) H 01/12/19 20:17 Urine Microscopic WBC 5-15 per hpf (0-3) H 01/12/19 20:17 Ur Squamous Epith Cells Many per lpf (None-Few) H 01/12/19 20:17 Ur Culture Indicated? NO. (NO) A 01/12/19 20:17 Vancomycin Trough 14 mcg/mL (5-10) H 01/17/19 02:58 Microbiology, Last 48 Hours 01/13/19 12:00 Wound Culture - Final Abscess No pathogens isolated. 01/13/19 12:00 Anaerobic Culture - Preliminary Abscess At this time, no anaerobic growth is present. The culture will be finalized after 5 days of incubation. Consult Discharge Plan - Plan Additional Instructions: 1. Apply triple antibiotic and bandaid daily to the right 1st toe wound after discharge. Can shower normally. 2. Follow up with Dr. Og Manning 1 week after discharge. 3. Complete PO antibiotics as prescribed after discharge. Referrals: Og Manning DPM [Partnered Physician] - 01/25/19 1:00 pm (Please follow up as schedule...) Carolyn Mendiola CNP [Primary Care Provider] - 01/19/19 10:00 am (Please follow up as schedule....)
--- NOTE | 2019-01-17 12:11 | Infectious Disease Consult ---
Infectious Disease-Consult - Encounter Date/Time Date of Encounter: 01/17/19 Time of Encounter: 12:09 - Data of Consult Patient: new to practice Reason for consult: Osteomyelitis right foot Consult date: 01/17/19 Requesting Physician: Emilie Josue MD Primary Care Provider: Carolyn Mendiola CNP - HPI HPI: Mrs. Galicia is a 58-year-old female with a past medical history of diabetes and hypertension. The patient was admitted to the hospital for for right great toe cellulitis. We are consulted for for further workup and treatment recommendations for right great toe osteomyelitis. Briefly, the patient's a 58-year-old female with a past medical history as stated above. The patient presented to the emergency department with a two-week history of right great toe redness and swelling after she cut her toenail. The patient reported worsening and migration of the pain up her legs that she p resented to the ER for evaluation. Upon arrival, she had a low-grade temp was tachycardic. She had leukocytosis with neutrophilic predominance. LFTs, lactic acid, troponin, and renal function were normal. Urinalysis was negative. Blood cultures were obtained 2 sets are no growth. She has CT of the lower extremity that showed findings consistent with cellulitis versus lymphedema. She was st arted empirically on Vanco and Zosyn and admitted to the hospital for further evaluation. Since admission, the patient did have a low-grade temp of 100.1. Her leukocytosis has resolved. Podiatry was consulted and performed a nail avulsion procedure on 01/13. Cultures were negative. Due to the patient not progressing, she underwent an MRI of the right foot that showed osteomyelitis of the first distal phalanx. The podiatry team has offered her the option to undergo either a right great toe amputation versus bone biopsy. Her ESR is elevated at 41 with a CRP of 26. She is currently on day 6 of vancomycin and Zosyn. We have been asked to evaluate and make further recommendations. During my exam today, the patient tells me that the pain and swelling started about 2 weeks, progressively got worse to the point where she was unable to walk. She reports fevers with chills last Tuesday. Denies nausea, vomiting, diarrhea, or constipation. States her appetite is not very good. States her blood sugars have been high. She denies pain at this time, but recently took oral pain medication. She denies any headache or neck pain. Denies any weakness or dizziness. Denies any oral thrush or any skin lesions. The patient lives at home with her family. 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 She denies any recent travel. She denies any prolonged exposure to water. She denies any pet or animal exposures. She denies any chronic infectious diseases. She denies any tobacco, alcohol, or illicit drug use. - ROS Review of Systems: All systems reviewed and no additional remarkable complaints except as stated. - Results CBC & Chem 7: 01/18/19 04:59 01/18/19 04:59 - Exam Vitals: Temp Pulse Resp BP Pulse Ox 97.7 F 90 16 159/82 93 01/17/19 11:28 01/17/19 11:28 01/17/19 11:28 01/17/19 11:28 01/17/19 11:28 Exam: Head: Atraumatic, normal inspection, normocephalic. Eye: EOMI, PERRLA, no scleral icterus noted. ENT: Mucous membranes moist. No odontogenic infection noted. Neck: Normal inspection, no meningismus. Respiratory: Clear to auscultation. No rales, respiratory distress, rhonchi, or wheezes noted. Cardiovascular: Regular rate and rhythm, S1 and S2 audible. No murmurs, rubs, or gallops. GI: Soft, obese, normal bowel sounds. Extremities: Erythema noted to the right great toe extending to the first MTP joint. Mild edema noted to the right foot and ankle. Nontender. No fl uctuance. Warm to touch. Dorsalis pedis pulses 2+ bilaterally. Posterior tibial pulses 1+ bilaterally. Back: Normal inspection. No vertebral tenderness noted. Neurological: Alert, oriented 3, no focal deficits. Psychiatric: normal affect, normal mood. Skin: Dry, intact, warm. Normal color. No rashes. RX: Lisinopril [Zestril] 40 mg PO BID 09/08/16 [History] RX: metFORMIN [Glucophage] 1,000 mg PO BID 09/08/16 [History] Canagliflozin [Invokana] 100 mg PO DAILY 01/12/19 [History] RX: Atorvastatin [Lipitor] 40 mg PO QPM 01/12/19 [History] Amlodipine Besylate 2.5 mg PO DAILY 01/15/19 [History] Aspirin/Caffeine [Back & Body Pain Reliever Cplt] 2 tab PO DAILY PRN 01/15/19 [History] Doxycycline Monohydrate [Mondoxyne Nl] 50 mg PO DAILY 01/15/19 [History] Insulin Glargine,Hum.rec.anlog [Lantus Solostar] 50 unit SQ DAILY 01/15/19 [History] Liraglutide [Victoza 3-Mo] 0.6 mg SQ DAILY 01/15/19 [History] RX: Amitriptyline [Elavil] 25 mg PO HS 01/15/19 [History] Allergy/AdvReac Type Severity Reaction Status Date / Time sulfacetamide AdvReac Swelling Verified 01/15/19 09:03 of Lip/Tongue/Throat - Assessment and Plan (1) Sepsis Current Visit: Yes Status: Acute The patient had 3 sepsis criteria on admission. Likely secondary to right great toe cellulitis and osteomyelitis. Improved. Leukocytosis has resolved. She has been afebrile. Tachycardia has resolved. Blood cultures drawn 01/12/19 are no growth to date 2 sets. Qualifiers: Sepsis type: sepsis due to unspecified organism Qualified Code(s): A41.9 - Sepsis, unspecified organism SNOMED Code(s): 71964716 (2) Osteomyelitis Current Visit: Yes Status: Acute Location: Distal aspect of the first phalanx of the right foot. Causative organism: Unclear. Wound culture is negative. Anaerobic cultures are pending. MRI of the right foot showed findings consistent with osteomyelitis. ESR elevated at 41 with a CRP of 26. Podiatry consulted. Bone biopsy versus amputation of the toe. Awaiting patient's decision. Currently on vancomycin and Zosyn. Qualifiers: Osteomyelitis type: acute hematogenous Osteomyelitis location: foot Laterality: right Qualified Code(s): M86.071 - Acute hematogenous osteomyelitis, right ankle and foot SNOMED Code(s): 48202653 (3) Cellulitis of right foot Current Visit: No Status: Acute Location: Right great toe. Etiology: Likely secondary to recent trauma. Causative organism: Unclear. Wound cultures are negative. Podiatry consult. Status post bedside nail avulsion procedure 01/13/19. Small amount of purulent drainage noted, but aerobic cultures are negative. Anaerobic cultures are pending. Currently on vancomycin and Zosyn. SNOMED Code(s): 589303102 (4) Diabetes mellitus Current Visit: Yes Status: Chronic Uncontrolled. Hemoglobin A1c 11.1%. Recommend aggressive glucose monitor and control to promote wound healing and prevent reinfection. Management per the primary team. 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 use status Diabetes mellitus complication status: with unspecified complications Qualified Code(s): E11.8 - Type 2 diabetes mellitus with unspecified complications SNOMED Code(s): 48804118 (5) Obesity Current Visit: Yes Status: Acute Qualifiers: Obesity type: due to excess calories Obesity classification: adult class 2 (BMI 35 - 39.9) Serious obesity comorbidity presence: with serious comorbidity Body mass index: BMI 35.0-35.9 Qualified Code(s): E66.01 - Morbid (severe) obesity due to excess calories; Z68.35 - Body mass index (BMI) 35.0-35.9, adult SNOMED Code(s): 565370025, 621902096 - Recommendations Recommendations: Await blood cultures to finalize. Await anaerobic cultures to finalize. Await further surgical recommendations from the podiatry team once the patient makes a decision. Wound care and activity restrictions per the podiatry team. Continue vancomycin IV. Pharmacy to dose. Goal trough approximately 15. Continue Zosyn 3.375 g IV every 8 hours. Duration of treatment depends on the clinical picture, likely a total of 6 weeks. Monitor renal function for drug toxicity and dose adjust antibiotics. administrative services officer to assist with discharge planning. Assessment until final discharge recommendations are made. Past Med Surg Social Fam HX - Past Medical History Attestation: Yes The following information was validated with the patient. Source: patient, old records reviewed, nursing notes reviewed Medical history: diabetes, hypertension Psychiatric history: no psych history - Past Surgical History Surgical History: appendectomy, , cholecystectomy Additional surgical history: dental surgery - Social History Smoking Status: Never smoker Smokeless Tobacco Status: No Alcohol use: none Drug use: none Occupational status: employed Current living situation: Home, With Family Activity Level: Independent ambulation Recent Out of Country Travel Within the Last 8 Weeks: No Exposure or Possible Exposure to Illness During Travel: No - Family History Father Living Status: Still Living Hx Family Cancer: Yes Mother Living Status: Still Living Hx Family Endocrine Disorder: Yes (Diabetes) Consult Discharge Plan - Plan Additional Instructions: 1. Apply triple antibiotic and bandaid daily to the right 1st toe wound after discharge. Can shower normally. 2. Follow up with Dr. Og Manning 1 week after discharge. 3. Complete PO antibiotics as prescribed after discharge. Referrals: Og Manning DPM [Partnered Physician] - 01/25/19 1:00 pm (Please follow up as schedule...) Carolyn Mendiola CNP [Primary Care Provider] - 01/19/19 10:00 am (Please follow up as schedule....) - Attending Attestation I have personally performed a face to face evaluation on this patient. I have reviewed and agree with the care plan. History and Exam by me shows: This is an addendum to original report dictated by Damari Snowden CNP. Please refer to Damari's note for full detail. Patient is a 58-year-old woman that we are consulted to see for osteomyelitis of the first phalanx of the right foot with causative organism that is not clear yet. Patient also had sepsis when she came in. We were asked to evaluate and make further antibiotic recommendations. Assessment and plan: Sepsis Osteomyelitis of the distal aspect of the first phalanx of the right foot Cellulitis of the right foot Diabetes mellitus type 2 with hemoglobin A1c of 11.1 Recommendations Continue vancomycin IV. Pharmacy to dose. Goal trough approximately 15. Continue Zosyn 3.375 g IV every 8 hours. Duration of treatment depends on the clinical picture, likely a total of 6 weeks. Await cultures to finalize and Intra-Op findings and will make further recommendations then.
--- NOTE | 2019-01-17 17:36 | Anesthesia Evaluation PreOp ---
Addendum entered and electronically signed by Nara Padron MD 01/18/19 14:20: Vital Signs Temp Pulse Resp BP Pulse Ox 01/18/19 12:05 98.1 F 89 13 154/82 98 01/18/19 09:48 97.5 F L 87 16 136/76 94 01/18/19 03:49 98.6 F 80 16 120/65 97 01/18/19 00:28 98.3 F 83 16 113/64 95 01/17/19 20:06 99 F 93 16 154/79 95 01/17/19 16:36 97.6 F 85 16 147/85 98 Intake and Output 01/17/19 01/18/19 01/18/19 23:59 07:59 15:59 Intake Total 590 / 590 100 / 100 0 / 0 Output Total 0 / 0 0 / 0 Balance 590 / 590 100 / 100 0 / 0 Intake: IV Fluids 350 / 350 100 / 100 Zosyn 3.375 GM In 0.9 % Sodium 100 / 100 100 / 100 Chloride (Mini-Bag +) 100 ML @ 25 mls/hr IVPB Q8HR [facility] Rx#: [id number] Vancocin 1,000 MG In 0.9 % 250 / 250 Sodium Chloride 250 ML @ 167 mls/hr IVPB Q12H [facility] Rx#: [id number] Oral 240 / 240 0 / 0 Output: Urine 0 / 0 0 / 0 Other: # Voids 1 # Bowel Movements 1 Weight 95.1 kg Blood Glucose* 154 142 204 Original Note: Date of Encounter: 01/17/19 Time of Encounter: 17:34 - Past History Planned Operation: Right Foot I & D Cardiac History: HTN, Hyperlipidemia Pulmonary History: Denies Any Significant HX LEAD RADIATION THERAPIST History: Denies Any Significant HX Other Medical History: Diabetes Type II, Other (Obese) Anesthesia History: No Prior Anesthetic Complications, Past Anesthesia (Appy, c/s, Gb, Dental) : No Alcohol Use: none Drug use: none Medications and Allergies Lisinopril [Zestril] 40 mg PO BID 09/08/16 [History] metFORMIN [Glucophage] 1,000 mg PO BID 09/08/16 [History] Atorvastatin [Lipitor] 40 mg PO QPM 01/12/19 [History] Canagliflozin [Invokana] 100 mg PO DAILY 01/12/19 [History] Amitriptyline [Elavil] 25 mg PO HS 01/15/19 [History] Amlodipine Besylate 2.5 mg PO DAILY 01/15/19 [History] Aspirin/Caffeine [Back & Body Pain Reliever Cplt] 2 tab PO DAILY PRN 01/15/19 [History] Doxycycline Monohydrate [Mondoxyne Nl] 50 mg PO DAILY 01/15/19 [History] Insulin Glargine,Hum.rec.anlog [Lantus Solostar] 50 unit SQ DAILY 01/15/19 [History] Liraglutide [Victoza 3-Mo] 0.6 mg SQ DAILY 01/15/19 [History] Allergy/AdvReac Type Severity Reaction Status Date / Time sulfacetamide AdvReac Swelling Verified 01/15/19 09:03 of Lip/Tongue/Throat - Meds/Allergy Pre-op Review Medications Reviewed: Yes Allergies Reviewed: Yes Beta Blockers on Current Med List: No Anesthesia Results - Labs 01/17/19 02:58 01/17/19 02:58 - Imaging EKG: report reviewed (SR on Telemetry Strip) Anesthesia Exam Vital Signs/O2 Sat, Most Current Temp Pulse Resp BP Pulse Ox 97.6 F 85 16 147/85 98 01/17/19 16:36 01/17/19 16:36 01/17/19 16:36 01/17/19 16:36 01/17/19 16:36 - HEENT Pupil (Motor): Pupils equal, EOMI Mallampati: I Teeth: Normal Oral Opening: Greater than 3 - LEAD RADIATION THERAPIST LOC: Oriented LEAD RADIATION THERAPIST Motor: Normal RUE, Normal LUE, Normal RLE, Normal LLE, Normal Face LEAD RADIATION THERAPIST Sensory: Normal: RUE, LUE, RLE, LLE, Face - Cardiac Rhythm: Regular Murmur: None JVD: No Carotid Bruit: No - Pulmonary Breath Sounds: bilateral Clear Respiratory Effort: Symmetrical Anesthesia Assess/Plan ASA Score: 3 Level of consciousness: Cooperative, Oriented, Tranquil Anesthetic Plan: MAC Autologous Blood: Yes Monitoring Plan: Standard Monitors Recovery Plan: Other
[2019-01-17] MEDS ORDERED: Insulin DETEMIR 100 UNIT/ML X5UNITS SQ SCH (21:00)
[2019-01-17] MEDS: *HR* OxyCODONE Immed Rel 5 MG TABLET PO PRN (21:23)
[2019-01-18] MEDS: Piperacillin/Tazobactam 3.375 GM in 0.9 % Sodium Chloride Mini Bag 100 ML IVPB SCH ×5 (00:38→23:15)
[2019-01-18] MEDS: *HR* Heparin 5,000 UNIT/ML VIAL SQ SCH ×2 (04:47→17:29)
[2019-01-18 05:49] LABS: Basophils # 0.1 K/mcL (0.0-0.2); Basophils % 0.6 %; Eosinophils # 0.5 K/mcL (0.0-0.6); Hematocrit 33.2 % (35.3-44.9); Immature Granulocytes % 1.6 % (0-4); Lymphocytes # 2.3 K/mcL (0.6-4.6); Mean Corpuscular HGB Conc 33.1 g/dL (31.6-35.5); Mean Corpuscular Hemoglobin 29.6 pg (28.0-33.3); Mean Corpuscular Volume 89.5 fL (83.0-100.0); Mean Platelet Volume 9.8 fL (9.4-12.4); Monocytes # 0.6 K/mcL (0.0-1.3); Monocytes % 6.8 %; Neutrophils # 5.8 K/mcL (1.6-8.9); Platelet Count 287 K/mcL (140-400); Red Blood Count 3.71 M/mcL (3.82-4.97); Red Cell Distribution Width 13.8 % (11.5-14.5)
[2019-01-18 06:07] LABS: BUN/Creatinine Ratio 21 (6-26); Blood Urea Nitrogen 15 mg/dL (6-20); Calcium 8.4 mg/dL (8.6-10.3); Carbon Dioxide 25 mEq/L (23-29); Chloride 105 mEq/L (98-107); Glucose 212 mg/dL (70-105); Osmolality,Calculated 291 (280-300); Potassium 3.6 mEq/L (3.5-5.1); Sodium 137 mEq/L (136-145); eGFR For Non-African Americans > 60 (> 60)
[2019-01-18] MEDS: Insulin LISPRO 300 UNITS/3 ML VIAL SQ SCH ×3 (07:58→20:39)
[2019-01-18] MEDS ORDERED: amLODIPine 5 MG TABLET PO SCH (09:00)
--- NOTE | 2019-01-18 10:01 | Infectious Disease Progress No ---
ID Progress Note Date of Encounter: 01/18/19 Time of Encounter: 09:10 - Subjective Subjective: Patient seen and examined. No acute events noted overnight. Patient denies fevers, chills, rigors. Denies chest pain, shortness of breath, or cough. Denies nausea, vomiting, diarrhea, or constipation. Denies abdominal pain or urinary complaints. States last bowel movement was this morning. States she is not really hungry, but is thirsty, but is nothing by mouth for surgery later today. Reports mild pain in the right foot. Denies any oral thrush or new skin lesions. - Objective CBC & Chem 7: 01/18/19 04:59 01/18/19 04:59 - Exam Vitals: Temp Pulse Resp BP Pulse Ox 97.5 F L 87 16 136/76 94 01/18/19 09:48 01/18/19 09:48 01/18/19 09:48 01/18/19 09:48 01/18/19 09:48 Exam: Head: Atraumatic, normal inspection, normocephalic. Eye: EOMI, PERRLA, no scleral icterus noted. ENT: Mucous membranes moist. No odontogenic infection noted. Neck: Normal inspection, no meningismus. Respiratory: Clear to auscultation. No rales, respiratory distress, rhonchi, or wheezes noted. Cardiovascular: Regular rate and rhythm, S1 and S2 audible. No murmurs, rubs, or gallops. GI: Soft, obese, normal bowel sounds. Extremities: Erythema noted to the right great toe extending to the first MTP joint. Mild edema noted to the right foot and ankle. Nontender. No fluctuance. Warm to touch. Dorsalis pedis pulses 2+ bilaterally. Posterior tibial pulses 1+ bilaterally. Back: Normal inspection. No vertebral tenderness noted. Neurological: Alert, oriented 3, no focal deficits. Psychiatric: normal affect, normal mood. Skin: Dry, intact, warm. Normal color. No rashes. - Assessment and Plan (1) Sepsis Current Visit: Yes Status: Acute The patient had 3 sepsis criteria on admission. Likely secondary to right great toe cellulitis and osteomyelitis. Improved. Leukocytosis has resolved. She has been afebrile. Tachycardia has resolved. Blood cultures drawn 01/12/19 are negative 2 sets. Qualifiers: Sepsis type: sepsis due to unspecified organism Qualified Code(s): A41.9 - Sepsis, unspecified organism SNOMED Code(s): 14012585 (2) Osteomyelitis Current Visit: Yes Status: Acute Location: Distal aspect of the first phalanx of the right foot. Causative organism: Unclear. Wound culture is negative. Anaerobic cultures are pending. MRI of the right foot showed findings consistent with osteomyelitis. ESR elevated at 41 with a CRP of 26. Podiatry consulted. Scheduled to undergo biopsy of the right great toe later this afternoon. Currently on vancomycin and Zosyn. Qualifiers: Osteomyelitis type: acute hematogenous Osteomyelitis location: foot Laterality: right Qualified Code(s): M86.071 - Acute hematogenous osteomyelitis, right ankle and foot SNOMED Code(s): 80823657 (3) Cellulitis of right foot Current Visit: No Status: Acute Location: Right great toe. Etiology: Likely secondary to recent trauma. Causative organism: Unclear. Wound cultures are negative. Podiatry consult. Status post bedside nail avulsion procedure 01/13/19. Small amount of purulent drainage noted, but aerobic cultures are negative. Anaerobic cultures are no growth. Currently on vancomycin and Zosyn. SNOMED Code(s): 286442351 (4) Diabetes mellitus Current Visit: Yes Status: Chronic Uncontrolled. Hemoglobin A1c 11.1%. Recommend aggressive glucose monitor and control to promote wound healing and prevent reinfection. Management per the primary team. Qualifiers: Diabetes mellitus type: type 2 Diabetes mellitus mcfp insulin use: unspecified meterman insulin use status Diabetes mellitus complication status: with unspecified complications Qualified Code(s): E11.8 - Type 2 diabetes mellitus with unspecified complications SNOMED Code(s): 64164466 (5) Obesity Current Visit: Yes Status: Acute Qualifiers: Obesity type: due to excess calories Obesity classification: adult class 2 (BMI 35 - 39.9) Serious obesity comorbidity presence: with serious comorbidity Body mass index: BMI 35.0-35.9 Qualified Code(s): E66.01 - Morbid (severe) obesity due to excess calories; Z68.35 - Body mass index (BMI) 35.0-35.9, adult SNOMED Code(s): 889960855, 805376451 - Recommendations Recommendations: Await anaerobic cultures to finalize. Await Intra-Op cultures and findings. Please send bone for micro-and pathology. Wound care and activity restrictions per the podiatry team. Continue vancomycin IV. Pharmacy to dose. Goal trough approximately 15. Continue Zosyn 3.375 g IV every 8 hours. Duration of treatment depends on the clinical picture, likely a total of 6 weeks. Monitor renal function for drug toxicity and dose adjust antibiotics. director of radio services to assist with discharge planning. Assessment until final discharge recommendations are made. Consult Discharge Plan - Plan Additional Instructions: 1. Apply triple antibiotic and bandaid daily to the right 1st toe wound after discharge. Can shower normally. 2. Follow up with Dr. Og Manning 1 week after discharge. 3. Complete PO antibiotics as prescribed after discharge. Referrals: Og Manning DPM [Partnered Physician] - 01/25/19 1:00 pm (Please follow up as schedule...) Carolyn Mendiola CNP [Primary Care Provider] - 01/19/19 10:00 am (Please follow up as schedule....)
[2019-01-18] MEDS: Lisinopril 20 MG TABLET PO SCH (10:10)
[2019-01-18] MEDS: Lactobacillus 1 EACH CAP.SPRINK PO SCH (10:10)
[2019-01-18] MEDS ORDERED: 0.9 % Sodium Chloride 1,000 ML IVC SCH ×2 (10:15→16:28)
[2019-01-18] MEDS ORDERED: Insulin LISPRO 300 UNITS/3 ML VIAL SQ SCH ×2 (11:25)
--- NOTE | 2019-01-18 11:26 | Internal Med Progress Note ---
Hospitalist Progress Note - Encounter Date of Encounter: 01/18/19 Time of Encounter: 09:00 - Subjective Interval History: Patient has mild right big toe pain. No fever. Vitals are stable. Waiting for further podiatry surgery today. - Exam Vitals: Temp Pulse Resp BP Pulse Ox 97.5 F L 87 16 136/76 94 01/18/19 09:48 01/18/19 09:48 01/18/19 09:48 01/18/19 09:48 01/18/19 09:48 Exam: Vitals: Reviewed General: Obese white woman lying in bed in NAD Skin: Warm and supple. HEENT: Moist mucous membranes. No conjunctivae pallor. Neck: No lymphadenopathy. No JVD. No carotid bruits. No palpable thyroid. Chest: Normal thoracic expansion. Normal breath sounds. Clear to auscultation. Heart: Normal S1 & S2; rhythmic. No rubs or murmurs. Abdomen: Non-distended, soft and non-tender to palpation. No peritoneal reaction. Extremities: No clubbing, cyanosis. Right big toe s/p nail removal, well dressed. No calf tenderness. Normal distal pulses. Neurological: Awake, alert and oriented to person, place and time. No focal deficits. Psych: Affect appropriate. - Assessment and Plan (1) Essential hypertension Current Visit: Yes Status: Chronic Assessment and Plan: Resume antihypertensive at home dose (2) Diabetes mellitus Current Visit: Yes Status: Chronic Assessment and Plan: Continue sliding scale insulin coverage, add basal insulin for better glucose control (3) Cellulitis of great toe of right foot Current Visit: Yes Status: Inactive Assessment and Plan: Likely secondary to traumatic injury induced by her nail-cutting. Podiatry saw patient at bedside. Did first toe nail removal Continue vancomycin/zosyn. Blood and wound culture no growth so far MRI has been done, which shows cellulitis and concern for osteomyelitis, ID consult on case and input is appreciated. Podiatry will do further debridement and possible amputation today (4) Obesity Current Visit: Yes Status: Acute Assessment and Plan: Counseled and educated on therapeutic lifestyle changes for weight loss as it will be of benefit in controlling comorbidities. Immigration Judge evaluation advise d. DVT Prophylaxis: Heparin SC - Time Spent with Patient Total time spent is greater than 50% in coordination of care (as documented) at patient's floor/unit and/or counseling patient: 30 minutes 25 - 35 minutes Plan of Care Discussed with: patient Internal Medicine: Result - Labs CBC & Chem 7: 01/18/19 04:59 01/18/19 04:59 Labs: Short CBC 01/18/19 Range/Units 04:59 WBC 9.4 (4.3-11.1) K/mcL Hgb 11.0 L (11.5-15.4) g/dL Hct 33.2 L (35.3-44.9) % Plt Count 287 (140-400) K/mcL Neutrophils # 5.8 (1.6-8.9) K/mcL BMP 01/18/19 04:59 Sodium 137 Potassium 3.6 Chloride 105 Carbon Dioxide 25 BUN 15 Creatinine 0.73 Glucose 212 H Calcium 8.4 L - ABG Interpretation ABG results: PT/INR, D-dimer PT 11.6 Seconds (9.4-12.1) 01/12/19 19:36 Consult Discharge Plan - Plan Additional Instructions: 1. Apply triple antibiotic and bandaid daily to the right 1st toe wound after discharge. Can shower normally. 2. Follow up with Dr. gO Manning 1 week after discharge. 3. Complete PO antibiotics as prescribed after discharge. 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
[2019-01-18] MEDS ORDERED: Lidocaine -MPF 4% 5 ML AMPUL ONE (14:37)
[2019-01-18] MEDS ORDERED: Bupivacaine/EPI 1:200k 0.25%PF 10 ML VIAL INFILT ONE (14:40)
[2019-01-18] MEDS ORDERED: *HR* Propofol 200 MG/20 ML VIAL IVP ONE (14:42)
[2019-01-18] MEDS ORDERED: *HR* Succinylcholine 200 MG/10 ML VIAL IVP ONE (14:43)
[2019-01-18] MEDS ORDERED: Dexamethasone 4 MG/ML VIAL ONE (14:44)
[2019-01-18] MEDS ORDERED: Lidocaine -MPF 2% 2 ML VIAL ONE (14:44)
[2019-01-18] MEDS ORDERED: Ondansetron 4 MG/2 ML VIAL ONE (14:44)
[2019-01-18] MEDS ORDERED: *HR* Midazolam HCl 2 MG/2 ML VIAL ONE (14:45)
[2019-01-18] MEDS ORDERED: *HR* FentaNYL (PF) 100 MCG/2 ML VIAL ONE (14:45)
[2019-01-18] MEDS ORDERED: Acetaminophen IV 1,000 MG/100 ML INFUS..BTL ONE (14:50)
[2019-01-18] MEDS ORDERED: Famotidine 20 MG/2 ML VIAL ONE (14:51)
[2019-01-18] MEDS ORDERED: Vancomycin 1,000 MG, 0.9 % Sodium Chloride 1,000 ML IR ONE ×2 (14:55→16:28)
[2019-01-18] MEDS ORDERED: Vancomycin 1,000 MG VIAL ONE (15:00)
[2019-01-18] MEDS ORDERED: Bupivacaine-MPF 0.25% 10 ML VIAL ONE (15:03)
--- NOTE | 2019-01-18 16:04 | Orthopedic Operative Note ---
Date of procedure: 01/18/19 Pre-op diagnosis: Right 1st toe infection, osteomyelitis Post-op diagnosis: same Procedure: 01/18/19 16:02 1. Right 1st toe incision and drainage below fascia, multiple areas 2. Bone biopsy right 1st toe distal phalanx Implants: None Complications: None Anesthesia: GETA, local Local Anesthetics: 0.25% Sensorcaine HCL SubQ (cc), 1% Lidocaine HCL SubQ (cc) Surgeon: Og Manning Was there an clinical education assistant present: No Estimated blood loss (cc): 1 Tourniquet Time (Minutes): 0 Specimen: Bone culture right 1st toe distal phalanx Condition: stable Disposition: floor Procedure in Detail: 01/18/19 16:04 INDICATIONS AND CONSENT Valeria Galicia is a 58-year-old female type II diabetic who initially presented with an infected ingrown toenail of the right first toe. She stated that the nail got infected when she tried to trim the nail herself 1 week prior to admission to the hospital. CT of the right lower extremity showed no evidence of soft tissue gas, osteomyelitis, or absess. On 01/13/2019, she underwent a right first toenail avulsion for infection source control. The infection did not resolve and clinical evidence of abscess was noted to the first toe despite IV antibiotics. MRI showed evidence of inflammation surrounding the right first toe distal phalanx as well as evidence of osteomyelitis at the distal phalanx. There was no evidence of fluid collection on this MRI. Surgical intervention was warranted for infection source control which would include incision and drainage with bone biopsy of the right first toe distal phalanx. Patient elected to proceed with limb salvage and did not want to have the toe amputated. We discussed the above procedures in detail. This included a discussion on the indications, contraindications, and possible complications including but not limited to: worsening infection, non-healing wound, pain, swelling, bleeding, blood clots, heart complications, nerve injury, tendon injury, vascular injury, loss of toe, loss of limb, loss of life, long-term antibiotics, and need for further surgery. We also reviewed the expected post operative course, including a discussion on the partial-weightbearing status after this procedure. She related understanding of our discussion regarding this surgery. All questions were answered to her satisfaction, and a proper written informed consent was ob tained, signed, and placed in the chart. No guarantees were given, stated or implied, as to the outcome of this procedure. PROCEDURE IN DETAIL The patient was seen in the pre-operative holding area by Anesthesia, where she was consented for General Anesthesia with local nerve block. The patient was then brought back to the operative suite and placed on the operating room table in the supine position. A sign-in was performed. General anesthesia was then initiated per Anesthesia protocol. A well-padded pneumatic right ankle tourniquet was then placed but was not inflated for the procedure. Next, the right lower leg was scrubbed, prepped, and draped in the usual aseptic manner. A Douglas Time-Out was performed, and all parties in the room agreed. A total of 5mL of 1% lidocaine plain and 5mL of 0.25% sensorcaine plain was injected to the right forefoot in a Siegel block distribution. Attention was directed to the distal right first toe where a curvilinear incision was made over the distal aspect of the nail bed at the area of palpable fluctuance of the tissue to the level of deep fascia. The incision was then carried deep to the level of the distal phalanx. There was no visible fluid collection at the toe. The soft tissue appeared viable and healthy. There did appear to be evidence of necrosis at the distal phalanx with evidence of cortical destruction. A bone biopsy was taken from the 1st toe distal phalanx using a clean rongeur. This was sent to [facility] for aerobe, anaerobe, acid fast, and fungal culture. A second incision was made at the plantar first toe at another level of apparent fluctuance of the skin. The incision was carried deep to the plantar aspect of the right first toe distal phalanx. Again, there was no evidence of fluid collection and the plantar fat pad appeared viable and healthy. The wounds were then irrigated with 3 L of normal saline infused with 1 g of vancomycin. Retention sutures were placed at the plantar and dorsal first toe surgical incisions using 3-0 nylon. The wound was dressed with xeroform, kerlix, and SALVATORE wrap. Capillary refill time of the 1st toe on the right foot was also noted to be brisk at this time. A sign-out was performed. The patient tolerated anesthesia and the procedure well, and was transferred to PAC-U with vital signs stable and vascular status intact to the right lower extremity. Needle and sponge counts were correct X 2 at the end of the case. Dr. Og Manning was present, scrubbed, and participated in all vital aspects of the procedure. After a brief stay in PAC-U, the patient will be admitted back to the floor for continued monitoring and IV antibiotics. We will follow up on bone culture results and appreciate infectious disease recommendations regarding antibiotics. This could be a stage procedure as she could require a repeat incision and drainage with delayed primary closure of the wounds. This will be determined in the next 24-48 hours based on her clinical picture following the first incision and drainage. She is aware of the risk of loss of the digit if the infection source is not controlled.
[2019-01-18] MEDS ORDERED: *HR* OxyCODONE Immed Rel 5 MG TABLET PO PRN (16:28)
[2019-01-18] MEDS ORDERED: *HR* Dextrose 50 % in Water (Syg) 50 ML SYRINGE IVP PRN (16:28)
[2019-01-18] MEDS ORDERED: Acetaminophen 325 MG TABLET PO PRN (16:28)
[2019-01-18] MEDS ORDERED: Dextrose Gel 15 GM/37.5 ML TUBE PO PRN ×2 (16:28)
[2019-01-18] MEDS ORDERED: D5% in Water 1,000 ML IVC PRN (16:28)
[2019-01-18] MEDS ORDERED: Naloxone 0.4 MG/ML INJ IVP PRN (16:28)
[2019-01-18] MEDS: traMADol 50 MG TABLET PO PRN ×2 (17:12→23:21)
--- NOTE | 2019-01-18 17:31 | Anesthesia Evaluation Post Op ---
Date of Encounter: 01/18/19 Time of Encounter: 16:20 - Vital Signs Vital Signs: Vital Signs/O2 Sat/Glucose, Most Current Temp Pulse Resp BP Pulse Ox 01/18/19 16:19 98.4 F 72 16 152/77 96 01/18/19 16:10 78 14 137/78 96 01/18/19 16:00 76 14 147/77 97 01/18/19 15:50 97.5 F L 85 16 149/77 96 - Lungs Lungs: Clear Ascult./Percussion - Airway Airway: Non-obstructed - Cardiovascular Baseline Rhythm - Mental Status Mental Status: Alert & Oriented, Answers Appropriately - Pain Pain Scale used: Gisella (Faces) (1) - Nausea Vomiting Nausea Vomiting: Not Present - Hydration Hydration: Ice chips - Discharge PostOp Status: Transfer Patient to floor Anes Supervising Prov Stmt: Pt seen/evaluated, VSS and has met criteria for discharge to floor. - MD Ally
[2019-01-18] MEDS ORDERED: Insulin DETEMIR 100 UNIT/ML X5UNITS SQ SCH ×2 (21:00)
[2019-01-19 04:19] LABS: Basophils # 0.1 K/mcL (0.0-0.2); Basophils % 0.5 %; Eosinophils % 0.1 %; Hematocrit 35.1 % (35.3-44.9); Immature Granulocytes % 2.4 % (0-4); Lymphocytes % 8.9 %; Mean Corpuscular HGB Conc 34.2 g/dL (31.6-35.5); Mean Corpuscular Hemoglobin 30.2 pg (28.0-33.3); Mean Corpuscular Volume 88.2 fL (83.0-100.0); Mean Platelet Volume 9.7 fL (9.4-12.4); Monocytes # 0.3 K/mcL (0.0-1.3); Monocytes % 2.3 %; Neutrophils # 9.9 K/mcL (1.6-8.9); Platelet Count 302 K/mcL (140-400); Red Blood Count 3.98 M/mcL (3.82-4.97); Red Cell Distribution Width 13.9 % (11.5-14.5); Segmented Neutrophils % 85.8 %
[2019-01-19 04:34] LABS: BUN/Creatinine Ratio 22 (6-26); Blood Urea Nitrogen 17 mg/dL (6-20); Calcium 8.6 mg/dL (8.6-10.3); Carbon Dioxide 24 mEq/L (23-29); Chloride 104 mEq/L (98-107); Glucose 317 mg/dL (70-105); Osmolality,Calculated 296 (280-300); Potassium 4.1 mEq/L (3.5-5.1); Sodium 136 mEq/L (136-145); eGFR For Non-African Americans > 60 (> 60)
[2019-01-19] MEDS: *HR* Heparin 5,000 UNIT/ML VIAL SQ SCH ×2 (05:40→17:01)
[2019-01-19] MEDS: amLODIPine 5 MG TABLET PO SCH (07:39)
[2019-01-19] MEDS: Lisinopril 20 MG TABLET PO SCH (07:39)
[2019-01-19] MEDS: Lactobacillus 1 EACH CAP.SPRINK PO SCH (07:40)
[2019-01-19] MEDS: Piperacillin/Tazobactam 3.375 GM in 0.9 % Sodium Chloride Mini Bag 100 ML IVPB SCH ×2 (07:41→17:02)
[2019-01-19] MEDS: Insulin LISPRO 300 UNITS/3 ML VIAL SQ SCH ×4 (07:42→22:21)
[2019-01-19] MEDS: traMADol 50 MG TABLET PO PRN (07:50)
--- NOTE | 2019-01-19 09:50 | Podiatry Progress Note ---
Date of Encounter: 01/19/19 Time of Encounter: 09:48 - Assessment and Plan (1) Osteomyelitis Current Visit: Yes Status: Acute Assessment: S/P I&D and bone biopsy 01.18.[address] Manning WBC 11.5 Acid fast, fungal, anaerobic, and wound cultures pending Surgical bone biopsy pending Erythema not improved to right hallux Plan: Continue IV antibiotics per ID recommendations We will reevaluate in 24-48 hours, may return to OR for more aggressive wound de bridement or possible right hallux amputation if no improvement noted Cleansed with 0.9 normal saline, covered with Adaptic, secured with Kerlix and Medipore tape. Qualifiers: Osteomyelitis type: acute hematogenous Osteomyelitis location: foot Laterality: right Qualified Code(s): M86.071 - Acute hematogenous osteomyelitis, right ankle and foot (2) Paronychia Current Visit: Yes Status: Acute Assessment: Paronychia right hallux s/p nail avulsion 01/[address] Manning Minimal improvement noted to right hallux erythema Plan: Continue IV ATB per ID recommendations (3) Diabetes mellitus Current Visit: Yes Status: Chronic Assessment: HGB A1C 11.1 Plan: Tight glycemic control- primary managing Emphasized blood sugar control to promote wound healing Discussed diet and goal of A1C less than 7.0 to promote wound healing Qualifiers: Diabetes mellitus type: type 2 Diabetes mellitus assisted insulin use: with termite treater helper use Diabetes mellitus complication status: with unspecified complications Qualified Code(s): E11.8 - Type 2 diabetes mellitus with unspecified complications; Z79.4 - terminal worker (current) use of insulin Subjective Principal diagnosis: right 1st toe infection Interval history: Patient awake in bed. S/P I&D and bone biopsy of right hallux with Dr. Baum 01/18/19. Alert and oriented x 3. Patient reports pain 2/10. Denies fevers, chills, nausea, vomiting, or diarrhea. Denies chest pain, calf pain, or shortness of breath. No other questions or concerns at this time. Objective - Vital Signs Vital Signs: Vital Signs Temp Pulse Resp BP Pulse Ox 01/19/19 07:58 97.6 F 90 17 100/52 96 01/19/19 03:15 98.1 F 74 16 130/76 92 01/18/19 23:56 98 F 83 16 137/65 93 01/18/19 19:19 97.7 F 88 16 140/79 91 01/18/19 16:19 98.4 F 72 16 152/77 96 01/18/19 16:10 78 14 137/78 96 01/18/19 16:00 76 14 147/77 97 01/18/19 15:50 97.5 F L 85 16 149/77 96 01/18/19 12:05 98.1 F 89 13 154/82 98 Intake and Output 01/18/19 01/19/19 01/19/19 23:59 07:59 15:59 Intake Total 1350 / 1350 1350 / 1350 Output Total 0 / 0 Balance 1349 / 1349 1350 / 1350 Intake: IV Fluids 350 / 350 350 / 350 Zosyn 3.375 GM In 0.9 % Sodium 100 / 100 100 / 100 Chloride (Mini-Bag +) 100 ML @ 25 mls/hr IVPB Q8HR [facility] Rx#: [id number] Vancocin 1,000 MG In 0.9 % 250 / 250 250 / 250 Sodium Chloride 250 ML @ 167 mls/hr IVPB Q12H [facility] Rx#: [id number] Oral 1000 / 1000 1000 / 1000 Output: Urine 0 / 0 0 / 0 Estimated Blood Loss Other: Weight 95.4 kg Blood Glucose* 183 255 - Exam Exam: Constitiutional: Alert and oriented x 3. Well nourished. No acute distress noted Vascular: 1/4 DP/PT RLE, CFT <3 sec to all digits, warm to warm from tibia to toes RLE, no calf pain with squeeze RLE, 1/4 RLE edema Neurologic: Sensation to touch, normal plantar response, Normal position sense dorsiflexion/plantar flexion Dermatologic: Incision noted to right medial nailfold, dorsal, and right lateral hallux, plantar aspect. Well approximated, no signs of dehiscence, no signs of infection. Erythema noted to right hallux, Edema noted to right midfoot and right malleolus 1/4 Musculoskeletal: 5/5 muscle strength and normal tone bilaterally. - Lab Result Diagrams: 01/19/19 03:42 01/19/19 03:42 Labs: Abnormal lab results WBC 11.5 K/mcL (4.3-11.1) H 04/19/19 03:42 Hct 35.1 % (35.3-44.9) L 01/19/19 03:42 Neutrophils # 9.9 K/mcL (1.6-8.9) H 01/19/19 03:42 ESR 41 mm/hr (0-15) H 01/17/19 02:58 Glucose 317 mg/dL (70-105) H 01/19/19 03:42 POC Glucose 204 mg/dL (70-99) H 01/18/19 17:19 Hemoglobin A1c 11.1 % (-5.6) H 01/13/19 05:31 Alkaline Phosphatase 185 Units/L (34-104) H 01/12/19 19:36 C-Reactive Protein 26 mg/L (Less than 10) H 01/17/19 02:58 Globulin 3.9 g/dL (2.4-3.5) H 01/12/19 19:36 Albumin/Globulin Ratio 0.9 (1.1-2.2) L 01/12/19 19:36 Urine Glucose (UA) >=1000 mg/dL (Normal) H 01/12/19 20:17 Ur Leukocyte Esterase Trace (Negative) H 01/12/19 20:17 Urine Microscopic WBC 5-15 per hpf (0-3) H 01/12/19 20:17 Ur Squamous Epith Cells Many per lpf (None-Few) H 01/12/19 20:17 Ur Culture Indicated? NO. (NO) A 01/12/19 20:17 Vancomycin Trough 14 mcg/mL (5-10) H 01/17/19 02:58 Microbiology, Last 48 Hours 01/18/19 15:35 Anaerobic Culture - Preliminary Right Great Toe Culture is incubating. 01/18/19 15:35 Wound Culture - Preliminary Right Great Toe Culture is incubating. 01/13/19 12:00 Anaerobic Culture - Final Abscess No anaerobes were recovered. 01/12/19 19:25 Blood Culture - Final Peripheral Venipuncture No growth. Final report. 01/12/19 19:36 Blood Culture - Final Peripheral Venipuncture No growth. Final report. Consult Discharge Plan - Plan Additional Instructions: Referrals: Og Manning DPM [Partnered Physician] - 01/25/19 1:00 pm (Please follow up as schedule...) Carolyn Mendiola, CHRISTINA [Primary Care Provider] - 01/19/19 10:00 am (Please follow up as schedule....)
--- NOTE | 2019-01-19 13:15 | Internal Med Progress Note ---
Hospitalist Progress Note - Encounter Date of Encounter: 01/19/19 Time of Encounter: 09:00 - Subjective Interval History: Patient has mild right big toe pain. No fever. Vitals are stable - Exam Vitals: Temp Pulse Resp BP Pulse Ox 98.0 F 85 17 123/68 94 01/19/19 11:12 01/19/19 11:12 01/19/19 11:12 01/19/19 11:12 01/19/19 11:12 Exam: Vitals: Reviewed General: Obese white woman lying in bed in NAD Skin: Warm and supple. HEENT: Moist mucous membranes. No conjunctivae pallor. Neck: No lymphadenopathy. No JVD. No carotid bruits. No palpable thyroid. Chest: Normal thoracic expansion. Normal breath sounds. Clear to auscultation. Heart: Normal S1 & S2; rhythmic. No rubs or murmurs. Abdomen: Non-distended, soft and non-tender to palpation. No peritoneal reac tion. Extremities: No clubbing, cyanosis. Right big toe s/p nail removal, well dressed. No calf tenderness. Normal distal pulses. Neurological: Awake, alert and oriented to person, place and time. No focal deficits. Psych: Affect appropriate. - Assessment and Plan (1) Essential hypertension Current Visit: Yes Status: Chronic Assessment and Plan: Resume antihypertensive at home dose (2) Diabetes mellitus Current Visit: Yes Status: Chronic Assessment and Plan: Continue sliding scale insulin coverage, add basal insulin for better glucose control (3) Cellulitis of great toe of right foot Current Visit: Yes Status: Inactive Assessment and Plan: Likely secondary to traumatic injury induced by her nail-cutting. Podiatry saw patient at bedside. Did first toe nail removal Continue vancomycin/zosyn. Blood and wound culture no growth so far MRI has been done, which shows cellulitis and concern for osteomyelitis, ID consult on case and input is appreciated. Podiatry did further debridement and recommend continue monitoring. Bone biopsy has been done. (4) Obesity Current Visit: Yes Status: Acute Assessment and Plan: Counseled and educated on therapeutic lifestyle changes for weight loss as it will be of benefit in controlling comorbidities. Ceramic Coater evaluation advised. DVT Prophylaxis: Heparin SC - Time Spent with Patient Total time spent is greater than 50% in coordination of care (as documented) at patient's floor/unit and/or counseling patient: 30 minutes 25 - 35 minutes Plan of Care Discussed with: patient Internal Medicine: Result - Labs CBC & Chem 7: 01/19/19 03:42 01/19/19 03:42 Labs: Short CBC 01/19/19 Range/Units 03:42 WBC 11.5 H (4.3-11.1) K/mcL Hgb 12.0 (11.5-15.4) g/dL Hct 35.1 L (35.3-44.9) % Plt Count 302 (140-400) K/mcL Neutrophils # 9.9 H (1.6-8.9) K/mcL BMP 01/19/19 03:42 Sodium 136 Potassium 4.1 Chloride 104 Carbon Dioxide 24 BUN 17 Creatinine 0.79 Glucose 317 H Calcium 8.6 - ABG Interpretation ABG results: PT/INR, D-dimer PT 11.6 Seconds (9.4-12.1) 01/12/19 19:36 Consult Discharge Plan - Plan Additional Instructions: Referrals: Og Manning DPM [Partnered Physician] - 01/25/19 1:00 pm (Please follow up as schedule...) Carolyn Mendiola CNP [Primary Care Provider] - 01/19/19 10:00 am (Please follow up as schedule....) (2) Diabetes mellitus Qualifiers: Diabetes mellitus type: type 2 Diabetes mellitus chcf insulin use: with buttermilk drier operator use Diabetes mellitus complication status: with unspecified compl ications Qualified Code(s): E11.8 - Type 2 diabetes mellitus with unspecified complications; Z79.4 - terminal clerk (current) use of insulin (4) Obesity Qualifiers: Obesity type: due to excess calories Obesity classification: adult class 2 (BMI 35 - 39.9) Serious obesity comorbidity presence: with serious comorbidity Body mass index: BMI 35.0-35.9 Qualified Code(s): E66.01 - Morbid (severe) obesity due to excess calories; Z68.35 - Body mass index (BMI) 35.0-35.9, adult
--- NOTE | 2019-01-19 15:20 | Infectious Disease Progress No ---
ID Progress Note Date of Encounter: 01/19/19 Time of Encounter: 15:00 - Subjective Subjective: Patient seen and examined. No acute events noted overnight. Patient denies fevers, chills, rigors. Denies chest pain, shortness of breath, or cough. Denies nausea, vomiting, diarrhea, or constipation. Denies abdominal pain or urinary complaints. States last bowel movement was this morning. States she is not really hungry, but is thirsty, but is nothing by mouth for surgery later today. Reports mild pain in the right foot that is improved with PO pain medication. Denies any oral thrush or new skin lesions. - Objective CBC & Chem 7: 01/19/19 03:42 01/19/19 03:42 - Exam Vitals: Temp Pulse Resp BP Pulse Ox 98.0 F 85 17 123/68 94 01/19/19 11:12 01/19/19 11:12 01/19/19 11:12 01/19/19 11:12 01/19/19 11:12 Exam: Head: Atraumatic, normal inspection, normocephalic. Eye: EOMI, PERRLA, no scleral icterus noted. ENT: Mucous membranes moist. No odontogenic infection noted. Neck: Normal inspection, no meningismus. Respiratory: Clear to auscultation. No rales, respiratory distress, rhonchi, or wheezes noted. Cardiovascular: Regular rate and rhythm, S1 and S2 audible. No murmurs, rubs, or gallops. GI: Soft, obese, normal bowel sounds. Extremities: Right foot dressing C/D/I. Back: Normal inspection. No vertebral tenderness noted. Neurological: Alert, oriented 3, no focal deficits. Psychiatric: normal affect, normal mood. Skin: Dry, intact, warm. Normal color. No rashes. - Assessment and Plan (1) Sepsis Current Visit: Yes Status: Acute The patient had 3 sepsis criteria on admission. Likely secondary to right great toe cellulitis and osteomyelitis. Improved. Leukocytosis has resolved. She has been afebrile. Tachycardia has resolved. Blood cultures drawn 01/12/19 are negative 2 sets. Qualifiers: Sepsis type: sepsis due to unspecified organism Qualified Code(s): A41.9 - Sepsis, unspecified organism SNOMED Code(s): 52072278 (2) Osteomyelitis Current Visit: Yes Status: Acute Location: Distal aspect of the first phalanx of the right foot. Causative organism: Unclear. Swab cultures are negative. Intra-op cultures pending. MRI of the right foot showed findings consistent with osteomyelitis. ESR elevated at 41 with a CRP of 26. Podiatry consulted. Status post I & D right first toe with bone biopsy. Operative note reviewed. Intra-op cultures and pathology are pending. Currently on vancomycin and Zosyn. Qualifiers: Osteomyelitis type: acute hematogenous Osteomyelitis location: foot Laterality: right Qualified Code(s): M86.071 - Acute hematogenous osteomyelitis, right ankle and foot SNOMED Code(s): 40311125 (3) Cellulitis of right foot Current Visit: No Status: Acute Location: Right great toe. Etiology: Likely secondary to recent trauma. Causative organism: Unclear. Wound cultures are negative. Podiatry consult. Status post bedside nail avulsion procedure 01/13/19. Small amount of purulent drainage noted, but cultures are negative. Currently on vancomycin and Zosyn. SNOMED Code(s): 226594717 (4) Diabetes mellitus Current Visit: Yes Status: Chronic Uncontrolled. Hemoglobin A1c 11.1%. Recommend aggressive glucose monitor and control to promote wound healing and prevent reinfection. Management per the primary team. Qualifiers: Diabetes mellitus type: type 2 Diabetes mellitus long term care pharmacist insulin use: with longterm use Diabetes mellitus complication status: with unspecified complications Qualified Code(s): E11.8 - Type 2 diabetes mellitus with unspecified complications; Z79.4 - long term care pharmacist (current) use of insulin SNOMED Code(s): 55894940 (5) Obesity Current Visit: Yes Status: Acute Qualifiers: Obesity type: due to excess calories Obesity classification: adult class 2 (BMI 35 - 39.9) Serious obesity comorbidity presence: with serious comorbidity Body mass index: BMI 35.0-35.9 Qualified Code(s): E66.01 - Morbid (severe) obesity due to excess calories; Z68.35 - Body mass index (BMI) 35.0-35.9, adult SNOMED Code(s): 024810831, 780862455 - Recommendations Recommendations: Await Intra-Op cultures and pathology. Wound care and activity restrictions per the podiatry team. Continue vancomycin IV. Pharmacy to dose. Goal trough approximately 15. Continue Zosyn 3.375 g IV every 8 hours. Duration of treatment depends on the clinical picture, likely a total of 6 weeks. Monitor renal function for drug toxicity and dose adjust antibiotics. payroll services analyst to assist with discharge planning. Assessment until final discharge recommendations are made. Consult Discharge Plan - Plan Additional Instructions: Referrals: Og Manning DPM [Partnered Physician] - 01/25/19 1:00 pm (Please follow up as schedule...) Carolyn Mendiola CNP [Primary Care Provider] - 01/19/19 10:00 am (Please follow up as schedule....)
[2019-01-19] MEDS: Insulin DETEMIR 100 UNIT/ML X5UNITS SQ SCH (22:21)
[2019-01-20] MEDS: Piperacillin/Tazobactam 3.375 GM in 0.9 % Sodium Chloride Mini Bag 100 ML IVPB SCH ×4 (00:27→23:56)
[2019-01-20 04:19] LABS: Basophils # 0.1 K/mcL (0.0-0.2); Basophils % 0.6 %; Eosinophils # 0.3 K/mcL (0.0-0.6); Eosinophils % 3.1 %; Hemoglobin 10.5 g/dL (11.5-15.4); Immature Granulocytes % 2.3 % (0-4); Lymphocytes # 2.8 K/mcL (0.6-4.6); Lymphocytes % 27.6 %; Mean Corpuscular HGB Conc 33.9 g/dL (31.6-35.5); Mean Corpuscular Volume 88.6 fL (83.0-100.0); Mean Platelet Volume 9.4 fL (9.4-12.4); Monocytes # 0.5 K/mcL (0.0-1.3); Monocytes % 4.9 %; Neutrophils # 6.2 K/mcL (1.6-8.9); Platelet Count 256 K/mcL (140-400); Red Cell Distribution Width 14.2 % (11.5-14.5); Segmented Neutrophils % 61.5 %
[2019-01-20 04:33] LABS: BUN/Creatinine Ratio 27 (6-26); Blood Urea Nitrogen 20 mg/dL (6-20); Calcium 8.4 mg/dL (8.6-10.3); Carbon Dioxide 25 mEq/L (23-29); Chloride 108 mEq/L (98-107); Glucose 233 mg/dL (70-105); Osmolality,Calculated 296 (280-300); Potassium 3.6 mEq/L (3.5-5.1); Sodium 138 mEq/L (136-145); eGFR For Non-African Americans > 60 (> 60)
[2019-01-20] MEDS: *HR* Heparin 5,000 UNIT/ML VIAL SQ SCH ×2 (06:19→17:29)
[2019-01-20] MEDS: Lactobacillus 1 EACH CAP.SPRINK PO SCH (07:57)
[2019-01-20] MEDS: Insulin LISPRO 300 UNITS/3 ML VIAL SQ SCH ×4 (07:57→20:03)
[2019-01-20] MEDS: Lisinopril 20 MG TABLET PO SCH (07:57)
[2019-01-20] MEDS: amLODIPine 5 MG TABLET PO SCH (07:57)
[2019-01-20] MEDS: traMADol 50 MG TABLET PO PRN ×2 (08:08→20:09)
--- NOTE | 2019-01-20 10:58 | Internal Med Progress Note ---
Hospitalist Progress Note - Encounter Date of Encounter: 01/20/19 Time of Encounter: 09:00 - Subjective Interval History: Patient complaint right big toe pain, controlled by pain medication. No fever. - Exam Vitals: Temp Pulse Resp BP Pulse Ox 97.7 F 77 18 143/81 96 01/20/19 07:39 01/20/19 07:39 01/20/19 07:39 01/20/19 07:39 01/20/19 07:39 Exam: Vitals: Reviewed General: Obese white woman lying in bed in NAD Skin: Warm and supple. HEENT: Moist mucous membranes. No conjunctivae pallor. Neck: No lymphadenopathy. No JVD. No carotid bruits. No palpable thyroid. Chest: Normal thoracic expansion. Normal breath sounds. Clear to auscultation. Heart: Normal S1 & S2; rhythmic. No rubs or murmurs. Abdomen: Non-distended, soft and non-tender to palpation. No peritoneal reaction. Extremities: No clubbing, cyanosis. Right big toe s/p nail removal, well dress ed. No calf tenderness. Normal distal pulses. Neurological: Awake, alert and oriented to person, place and time. No focal deficits. Psych: Affect appropriate. - Assessment and Plan (1) Essential hypertension Current Visit: Yes Status: Chronic Assessment and Plan: Resume antihypertensive at home dose (2) Diabetes mellitus Current Visit: Yes Status: Chronic Assessment and Plan: Continue sliding scale insulin coverage, add basal insulin for better glucose control (3) Cellulitis of great toe of right foot Current Visit: Yes Status: Inactive Assessment and Plan: Likely secondary to traumatic injury induced by her nail-cutting. Podiatry saw patient at bedside. Did first toe nail removal Continue vancomycin/zosyn. Blood and wound culture no growth so far MRI has been done, which shows cellulitis and concern for osteomyelitis, ID consult on case and input is appreciated. Podiatry did further debridement and recommend continue monitoring. Bone biopsy has been done. Per ID, continue Vanco and Zosyn at this point, follow-up intraoperative culture and bone biopsy results (4) Obesity Current Visit: Yes Status: Acute Assessment and Plan: Counseled and educated on therapeutic lifestyle changes for weight loss as it will be of benefit in controlling comorbidities. Transaction Coordinator evaluation advise d. DVT Prophylaxis: Heparin SC - Time Spent with Patient Total time spent is greater than 50% in coordination of care (as documented) at patient's floor/unit and/or counseling patient: 30 minutes 25 - 35 minutes Plan of Care Discussed with: patient Internal Medicine: Result - Labs CBC & Chem 7: 01/20/19 04:02 01/20/19 04:02 Labs: Short CBC 01/20/19 Range/Units 04:02 WBC 10.1 (4.3-11.1) K/mcL Hgb 10.5 L D (11.5-15.4) g/dL Hct 31.0 L (35.3-44.9) % Plt Count 256 (140-400) K/mcL Neutrophils # 6.2 (1.6-8.9) K/mcL BMP 01/20/19 04:02 Sodium 138 Potassium 3.6 Chloride 108 H Carbon Dioxide 25 BUN 20 Creatinine 0.73 Glucose 233 H Calcium 8.4 L - ABG Interpretation ABG results: PT/INR, D-dimer PT 11.6 Seconds (9.4-12.1) 01/12/19 19:36 Consult Discharge Plan - Plan Additional Instructions: Referrals: Og Manning DPM [Partnered Physician] - 01/25/19 1:00 pm (Please follow up as schedule...) Carolyn Mendiola EMBROIDERY PATTERNMAKER [Primary Care Provider] - 01/19/19 10:00 am (Please follow up as schedule....) (2) Diabetes mellitus Qualifiers: Diabetes mellitus type: type 2 Diabetes mellitus assisted insulin use: with assisted use Diabetes mellitus complication status: with unspecified complications Qualified Code(s): E11.8 - Type 2 diabetes mellitus with unspecified complications; Z79.4 - terminal operator (current) use of insulin (4) Obesity Qualifiers: Obesity type: due to excess calories Obesity classification: adult class 2 (BMI 35 - 39.9) Serious obesity comorbidity presence: with serious comorbidity Body mass index: BMI 35.0-35.9 Qualified Code(s): E66.01 - Morbid (severe) obesity due to excess calories; Z68.35 - Body mass index (BMI) 35.0-35.9, adult
[2019-01-20] MEDS: Insulin DETEMIR 100 UNIT/ML X5UNITS SQ SCH (20:04)
[2019-01-21] MEDS: *HR* Heparin 5,000 UNIT/ML VIAL SQ SCH ×2 (05:31→17:15)
[2019-01-21] MEDS: amLODIPine 5 MG TABLET PO SCH (08:19)
[2019-01-21] MEDS: Lactobacillus 1 EACH CAP.SPRINK PO SCH (08:19)
[2019-01-21] MEDS: Lisinopril 20 MG TABLET PO SCH (08:19)
[2019-01-21] MEDS: Piperacillin/Tazobactam 3.375 GM in 0.9 % Sodium Chloride Mini Bag 100 ML IVPB SCH ×2 (08:20→17:14)
[2019-01-21] MEDS: Insulin LISPRO 300 UNITS/3 ML VIAL SQ SCH ×4 (08:21→20:31)
--- NOTE | 2019-01-21 10:05 | Internal Med Progress Note ---
Hospitalist Progress Note - Encounter Date of Encounter: 01/21/19 Time of Encounter: 09:00 - Subjective Interval History: Patient has mild right big toe pain, occasionally need pain medications. No fever. Vitals are stable. No diarrhea. - Exam Vitals: Temp Pulse Resp BP Pulse Ox 98.3 F 80 16 147/82 93 01/21/19 07:30 01/21/19 07:30 01/21/19 07:30 01/21/19 07:30 01/21/19 07:30 Exam: Vitals: Reviewed General: Obese white woman lying in bed in NAD Skin: Warm and supple. HEENT: Moist mucous membranes. No conjunctivae pallor. Neck: No lymphadenopathy. No JVD. No carotid bruits. No palpable thyroid. Chest: Normal thoracic expansion. Normal breath sounds. Clear to auscultation. Heart: Normal S1 & S2; rhythmic. No rubs or murmurs. Abdomen: Non-distended, soft and non-tender to palpation. No peritoneal reaction. Extremities: No clubbing, cyanosis. Right big toe s/p nail removal, well dressed. No calf tenderness. Normal distal pulses. Neurological: Awake, alert and oriented to person, place and time. No focal deficits. Psych: Affect appropriate. - Assessment and Plan (1) Essential hypertension Current Visit: Yes Status: Chronic Assessment and Plan: Resume antihypertensive at home dose (2) Diabetes mellitus Current Visit: Yes Status: Chronic Assessment and Plan: Continue sliding scale insulin coverage, add basal insulin for better glucose control (3) Cellulitis of great toe of right foot Current Visit: Yes Status: Inactive Assessment and Plan: Likely secondary to traumatic injury induced by her nail-cutting. Podiatry saw patient at bedside. Did first toe nail removal Continue vancomycin/zosyn. Blood no growth so far Wound culture shows positive for Staph Capitis, pansensitive. MRI has been done, which shows cellulitis and concern for osteomyelitis, ID consult on case and input is appreciated. Podiatry did further debridement and recommend continue monitoring. Bone biopsy has been done. Per ID, continue Vanco and Zosyn at this point, follow-up intraoperative culture and bone biopsy results (4) Obesity Current Visit: Yes Status: Acute Assessment and Plan: BMI 37. Counseled and educated on therapeutic lifestyle changes for weight loss as it will be of benefit in controlling comorbidities. Distribution Operations Supervisor evaluation advised. DVT Prophylaxis: Heparin SC - Time Spent with Patient Total time spent is greater than 50% in coordination of care (as documented) at patient's floor/unit and/or counseling patient: 30 min 25 - 35 minutes Plan of Care Discussed with: patient Internal Medicine: Result - Labs CBC & Chem 7: 01/20/19 04:02 01/20/19 04:02 - ABG Interpretation ABG results: PT/INR, D-dimer PT 11.6 Seconds (9.4-12.1) 01/12/19 19:36 Consult Discharge Plan - Plan Additional Instructions: Referrals: Og Manning DPM [Partnered Physician] - 01/25/19 1:00 pm (Please follow up as schedule...) Carolyn Mendiola CNP [Primary Care Provider] - 01/19/19 10:00 am (Please follow up as schedule....) (2) Diabetes mellitus Qualifiers: Diabetes mellitus type: type 2 Diabetes mellitus oil heaterman insulin use: with oil heaterman use Diabetes mellitus complication status: with unspecified complications Qualified Code(s): E11.8 - Type 2 diabetes mellitus with unspecified complications; Z79.4 - intermediate (current) use of insulin (4) Obesity Qualifiers: Obesity type: due to excess calories Obesity classification: adult class 2 (BMI 35 - 39.9) Serious obesity comorbidity presence: with serious comorbidity Body mass index: BMI 35.0-35.9 Qualified Code(s): E66.01 - Morbid (severe) obesity due to excess calories; Z68.35 - Body mass index (BMI) 35.0-35.9, adult
[2019-01-21] MEDS: Insulin DETEMIR 100 UNIT/ML X5UNITS SQ SCH (20:30)
[2019-01-22] MEDS: Piperacillin/Tazobactam 3.375 GM in 0.9 % Sodium Chloride Mini Bag 100 ML IVPB SCH ×2 (00:39→07:44)
[2019-01-22 04:08] LABS: Basophils # 0.1 K/mcL (0.0-0.2); Basophils % 0.8 %; Eosinophils # 0.3 K/mcL (0.0-0.6); Eosinophils % 3.5 %; Hematocrit 35.2 % (35.3-44.9); Hemoglobin 11.8 g/dL (11.5-15.4); Immature Granulocytes % 2.7 % (0-4); Lymphocytes % 22.9 %; Mean Corpuscular HGB Conc 33.5 g/dL (31.6-35.5); Mean Corpuscular Hemoglobin 29.9 pg (28.0-33.3); Mean Corpuscular Volume 89.1 fL (83.0-100.0); Mean Platelet Volume 9.6 fL (9.4-12.4); Monocytes # 0.6 K/mcL (0.0-1.3); Neutrophils # 5.5 K/mcL (1.6-8.9); Platelet Count 276 K/mcL (140-400); Red Blood Count 3.95 M/mcL (3.82-4.97); Red Cell Distribution Width 14.3 % (11.5-14.5); Segmented Neutrophils % 63.1 %
[2019-01-22 04:32] LABS: BUN/Creatinine Ratio 23 (6-26); Blood Urea Nitrogen 14 mg/dL (6-20); Calcium 8.9 mg/dL (8.6-10.3); Carbon Dioxide 25 mEq/L (23-29); Chloride 105 mEq/L (98-107); Glucose 170 mg/dL (70-105); Osmolality,Calculated 290 (280-300); Potassium 3.7 mEq/L (3.5-5.1); Sodium 138 mEq/L (136-145); eGFR For Non-African Americans > 60 (> 60)
[2019-01-22] MEDS: *HR* Heparin 5,000 UNIT/ML VIAL SQ SCH ×2 (05:04→16:35)
[2019-01-22] MEDS: amLODIPine 5 MG TABLET PO SCH (07:39)
[2019-01-22] MEDS: Lisinopril 20 MG TABLET PO SCH (07:39)
[2019-01-22] MEDS: Lactobacillus 1 EACH CAP.SPRINK PO SCH (07:39)
[2019-01-22] MEDS: Insulin LISPRO 300 UNITS/3 ML VIAL SQ SCH ×4 (07:39→20:42)
--- NOTE | 2019-01-22 10:22 | Podiatry Progress Note ---
Date of Encounter: 01/22/19 Time of Encounter: 10:20 - Assessment and Plan (1) Osteomyelitis Current Visit: Yes Status: Acute Assessment: S/P I&D and bone biopsy 01.18.[address] Manning WBC 8.7 today afebrile Acid fast, fungal, anaerobic cultures negative Wound culture positive for staph capitus ID on board for antibiotic management. Currently on Vanc and Zosyn. Surgical bone biopsy pending Overall appearance of right hallux has improved Patient healing well and without complications Plan: Continue IV antibiotics per ID recommendations- May be discharged on antibiotic recommendations per ID at this time patient does not need to return to OR for further debridement- healing well and cellulitis and appearance of right hallux has improved Cleansed with 0.9 normal saline, painted with betadine, covered with Adaptic, secured with Kerlix and Medipore tape Patient will need to be seen by in podiatry clinic 1 week after discharge Will need post operative shoe prior to discharge Ambulatory with post op shoe gear only Elevate and limit activity to promote healing Leave dressing intact until seen at post operative visit. Patient made aware of plan, denies questions or concerns at this time. . Qualifiers: Osteomyelitis type: acute hematogenous Osteomyelitis location: foot Laterality: right Qualified Code(s): M86.071 - Acute hematogenous osteomyelitis, right ankle and foot (2) Paronychia Current Visit: Yes Status: Acute Paronychia right hallux s/p nail avulsion 01/[address] Manning improvement in appearance Plan: Continue IV ATB per ID recommendations (3) Diabetes mellitus Current Visit: Yes Status: Chronic Assessment: HGB A1C 11.1 Plan: Tight glycemic control- primary managing Emphasized blood sugar control to promote wound healing Discussed diet and goal of A1C less than 7.0 to promote wound healing Qualifiers: Diabetes mellitus type: type 2 Diabetes mellitus watermelon inspector insulin use: with chcf use Diabetes mellitus complication status: with unspecified complications Qualified Code(s): E11.8 - Type 2 diabetes mellitus with unspecified complications; Z79.4 - manager intermediate (current) use of insulin Subjective Principal diagnosis: right 1st toe infection Interval history: Patient awake in bed. S/P I&D and bone biopsy of right hallux with Dr. Baum 01/18/19. Alert and oriented x 3. Patient reports pain 2/10. Denies fevers, chills, nausea, vomiting, or diarrhea. Denies chest pain, calf pain, or shortness of breath. Dressing to RLE clean dry and intact. There is a scant amount of dry strike through bleeding noted to dressing. No other questions or concerns at this time. Objective - Vital Signs Vital Signs: Vital Signs Temp Pulse Resp BP Pulse Ox 01/22/19 07:25 98.0 F 82 16 153/77 95 01/22/19 04:27 98.1 F 82 17 145/81 94 01/22/19 00:08 97.9 F 85 17 132/72 94 01/21/19 19:17 98.2 F 99 17 154/78 95 01/21/19 16:07 98.3 F 91 16 145/83 93 01/21/19 11:38 98.3 F 85 16 154/83 97 Intake and Output 01/21/19 01/22/19 01/22/19 23:59 07:59 15:59 Intake Total 830 / 830 100 / 100 120 / 120 Output Total 0 / 0 0 / 0 Balance 830 / 830 100 / 100 120 / 120 Intake: IV Fluids 350 / 350 100 / 100 Zosyn 3.375 GM In 0.9 % Sodium 100 / 100 100 / 100 Chloride (Mini-Bag +) 100 ML @ 25 mls/hr IVPB Q8HR [facility] Rx#: [id number] Vancocin 1,000 MG In 0.9 % 250 / 250 Sodium Chloride 250 ML @ 167 mls/hr IVPB Q12H [facility] Rx#: [id number] Oral 480 / 480 0 / 0 120 / 120 Output: Urine 0 / 0 0 / 0 Other: Meal Dinner Breakfast Percent of Meal Consumed 80% 50% Stool Size Moderate Stool Consistency soft Stool Characteristics Normal for Patient Stool Color Brown # Voids 3 # Bowel Movements 2 Weight 96 kg Blood Glucose* 208 144 Patient Weight 01/22/19 23:59 Weight 96 kg - Exam Exam: Podiatry General Exam: General appearance: alert awake oriented X 3. Calm and pleasant, no acute distress.. Vascular: Pedal pulses +2/4 DP/PT , No evidence of cyanosis, pallor or rubor, Edema graded at 1+/4, Skin Temperature warm, No calf pain with manual compr ession. capillary refill time is immediate to digits. Neurologic: Sensation intact with light touch to foot. . Patient reports tingling of right hallux. MUSCULOSKELETAL: Movement of all toes intact. AROM complete per patient. Postop Exam: S/P Sutures intact to incision lines x2 to right hallux, no signs of dehiscence. No open area, no drainage, no odor, improvement in erythema, no streaking. Minimal edema. Overall improvement in appearance of toe and right foot. No appearance of streaking or ascending cellultis. - Lab Result Diagrams: 01/22/19 03:31 01/22/19 03:31 Labs: Abnormal lab results Hct 35.2 % (35.3-44.9) L 01/22/19 03:31 ESR 41 mm/hr (0-15) H 01/17/19 02:58 Glucose 170 mg/dL (70-105) H 01/22/19 03:31 POC Glucose 208 mg/dL (70-99) H 01/21/19 19:32 Hemoglobin A1c 11.1 % (-5.6) H 01/13/19 05:31 Alkaline Phosphatase 185 Units/L (34-104) H 01/12/19 19:36 C-Reactive Protein 26 mg/L (Less than 10) H 01/17/19 02:58 Globulin 3.9 g/dL (2.4-3.5) H 01/12/19 19:36 Albumin/Globulin Ratio 0.9 (1.1-2.2) L 01/12/19 19:36 Urine Glucose (UA) >=1000 mg/dL (Normal) H 01/12/19 20:17 Ur Leukocyte Esterase Trace (Negative) H 01/12/19 20:17 Urine Microscopic WBC 5-15 per hpf (0-3) H 01/12/19 20:17 Ur Squamous Epith Cells Many per lpf (None-Few) H 01/12/19 20:17 Ur Culture Indicated? NO. (NO) A 01/12/19 20:17 Vancomycin Trough 13 mcg/mL (5-10) H 01/20/19 04:02 Microbiology, Last 48 Hours 01/18/19 15:35 Anaerobic Culture - Preliminary Right Great Toe At this time, no anaerobic growth is present. The culture will be finalized after 5 days of incubation. 01/18/19 15:35 Wound Culture - Final Right Great Toe Staphylococcus capitis Consult Discharge Plan - Plan Additional Instructions: Referrals: Og Manning DPM [Partnered Physician] - 01/25/19 1:00 pm (Please follow up as schedule...) Carolyn Mendiola CNP [Primary Care Provider] - 01/19/19 10:00 am (Please follow up as schedule....)
--- NOTE | 2019-01-22 13:24 | Infectious Disease Progress No ---
ID Progress Note Date of Encounter: 01/22/19 Time of Encounter: 13:21 - Subjective Subjective: Patient seen and examined. No acute events noted overnight. Patient denies fevers, chills, rigors. Denies chest pain, shortness of breath, or cough. Denies nausea, vomiting, diarrhea, or constipation. Denies abdominal pain or urinary complaints. States last bowel movement was this morning. Reports mild pain in the right foot that is improved with PO pain medication. States her appetite is good. Denies any oral thrush or new skin lesions. - Objective CBC & Chem 7: 01/22/19 03:31 01/22/19 03:31 - Exam Vitals: Temp Pulse Resp BP Pulse Ox 98.0 F 85 16 139/80 93 01/22/19 12:08 01/22/19 12:08 01/22/19 12:08 01/22/19 12:08 01/22/19 12:08 Exam: Head: Atraumatic, normal inspection, normocephalic. Eye: EOMI, PERRLA, no scleral icterus noted. ENT: Mucous membranes moist. No odontogenic infection noted. Neck: Normal inspection, no meningismus. Respiratory: Clear to auscultation. No rales, respiratory distress, rhonchi, or wheezes noted. Cardiovascular: Regular rate and rhythm, S1 and S2 audible. No murmurs, rubs, or gallops. GI: Soft, obese, normal bowel sounds. Extremities: Right foot dressing C/D/I. Back: Normal inspection. No vertebral tenderness noted. Neurological: Alert, oriented 3, no focal deficits. Psychiatric: normal affect, normal mood. Skin: Dry, intact, warm. Normal color. No rashes. - Assessment and Plan (1) Sepsis Current Visit: Yes Status: Acute The patient had 3 sepsis criteria on admission. Likely secondary to right great toe cellulitis and osteomyelitis. Improved. Leukocytosis has resolved. She has been afebrile. Tachycardia has resolved. Blood cultures drawn 01/12/19 are negative 2 sets. Qualifiers: Sepsis type: sepsis due to unspecified organism Qualified Code(s): A41.9 - Sepsis, unspecified organism SNOMED Code(s): 08056816 (2) Osteomyelitis Current Visit: Yes Status: Acute Location: Distal aspect of the first phalanx of the right foot. Causative organism: S. capitis. Swab cultures are negative. MRI of the right foot showed findings consistent with osteomyelitis. ESR elevated at 41 with a CRP of 26. Podiatry consulted. Status post I & D right first toe with bone biopsy. Operative note reviewed. Intra-op cultures as above. Currently on vancomycin and Zosyn. Qualifiers: Osteomyelitis type: acute hematogenous Osteomyelitis location: foot Laterality: right Qualified Code(s): M86.071 - Acute hematogenous osteomyelitis, right ankle and foot SNOMED Code(s): 32767884 (3) Cellulitis of right foot Current Visit: No Status: Inactive Location: Right great toe. Etiology: Likely secondary to recent trauma. Causative organism: S. capitis per intra-op cultures. Podiatry consult. Status post bedside nail avulsion procedure 01/13/19. Small amount of purulent drainage noted, but cultures are negative. Currently on vancomycin and Zosyn. SNOMED Code(s): 474194598 (4) Diabetes mellitus Current Visit: Yes Status: Chronic Uncontrolled. Hemoglobin A1c 11.1%. Recommend aggressive glucose monitor and control to promote wound healing and prevent reinfection. Management per the primary team. Qualifiers: Diabetes mellitus type: type 2 Diabetes mellitus watcher automat long goods insulin use: with watcher automat long goods use Diabetes mellitus complication status: with unspecified complications Qualified Code(s): E11.8 - Type 2 diabetes mellitus with unspecified complications; Z79.4 - joint terminal attack controller (current) use of insulin SNOMED Code(s): 37099125 (5) Obesity Current Visit: Yes Status: Acute Qualifiers: Obesity type: due to excess calories Obesity classification: adult class 2 (BMI 35 - 39.9) Serious obesity comorbidity presence: with serious comorbidity Body mass index: BMI 35.0-35.9 Qualified Code(s): E66.01 - Morbid (severe) obesity due to excess calories; Z68.35 - Body mass index (BMI) 35.0-35.9, adult SNOMED Code(s): 786216595, 868988602 - Recommendations Recommendations: Wound care and activity restrictions per the podiatry team. Discontinue vancomycin and Zosyn. Start Rocephin 2 g IV daily. Duration of treatment depends on the clinical picture, likely a total of 6 weeks. Monitor renal function for drug toxicity and dose adjust antibiotics. executive services administrator to assist with discharge planning. Consults vascular access team for midline placement. Will need weekly CBC, BUN/creatinine, ESR, CRP. Will need weekly IV Keppra protocol. Follow-up with ID 02/06/19 at 1405. Consult Discharge Plan - Plan Additional Instructions: Referrals: Og Manning DPM [Partnered Physician] - 01/25/19 1:00 pm (Please follow up as schedule...) Carolyn Mendiola CNP [Primary Care Provider] - 01/19/19 10:00 am (Please follow up as schedule....) Damari Snowden CNP [Advanced Practice Nurse] - 02/06/19 2:05 pm
[2019-01-22] MEDS ORDERED: Lidocaine 1% 20 ML MDV INFILT ONE (13:30)
[2019-01-22] MEDS ORDERED: cefTRIAXone 2,000 MG in 0.9 % Sodium Chloride Mini Bag 100 ML IVPB SCH (14:00)
[2019-01-22] MEDS ORDERED: Aminoglycoside Consult 1 EACH MC ONE (14:18)
[2019-01-22] MEDS: cefTRIAXone 2,000 MG in Water for inj. (sterile) 20 ML 20 ML IVP SCH (16:28)
[2019-01-22] MEDS: Insulin DETEMIR 100 UNIT/ML X5UNITS SQ SCH (20:42)
[2019-01-23 04:56] LABS: Basophils # 0.1 K/mcL (0.0-0.2); Basophils % 0.9 %; Eosinophils # 0.4 K/mcL (0.0-0.6); Eosinophils % 4.2 %; Hematocrit 34.6 % (35.3-44.9); Hemoglobin 11.7 g/dL (11.5-15.4); Immature Granulocytes % 1.6 % (0-4); Lymphocytes # 2.1 K/mcL (0.6-4.6); Lymphocytes % 23.3 %; Mean Corpuscular HGB Conc 33.8 g/dL (31.6-35.5); Mean Corpuscular Hemoglobin 30.2 pg (28.0-33.3); Mean Corpuscular Volume 89.4 fL (83.0-100.0); Mean Platelet Volume 9.9 fL (9.4-12.4); Monocytes # 0.6 K/mcL (0.0-1.3); Monocytes % 6.7 %; Neutrophils # 5.8 K/mcL (1.6-8.9); Platelet Count 239 K/mcL (140-400); Red Blood Count 3.87 M/mcL (3.82-4.97); Red Cell Distribution Width 14.5 % (11.5-14.5); Segmented Neutrophils % 63.3 %
[2019-01-23 04:59] LABS: BUN/Creatinine Ratio 23 (6-26); Blood Urea Nitrogen 15 mg/dL (6-20); Calcium 8.9 mg/dL (8.6-10.3); Carbon Dioxide 27 mEq/L (23-29); Chloride 106 mEq/L (98-107); Glucose 197 mg/dL (70-105); Osmolality,Calculated 294 (280-300); Potassium 3.6 mEq/L (3.5-5.1); Sodium 139 mEq/L (136-145); eGFR For Non-African Americans > 60 (> 60)
[2019-01-23] MEDS: *HR* Heparin 5,000 UNIT/ML VIAL SQ SCH (06:19)
[2019-01-23 07:27] VITALS: BP 144/74
[2019-01-23] MEDS: Lisinopril 20 MG TABLET PO SCH (08:09)
[2019-01-23] MEDS: Lactobacillus 1 EACH CAP.SPRINK PO SCH (08:09)
[2019-01-23] MEDS: amLODIPine 5 MG TABLET PO SCH (08:10)
[2019-01-23] MEDS: Insulin LISPRO 300 UNITS/3 ML VIAL SQ SCH ×2 (08:10→12:17)
[2019-01-23] MEDS: cefTRIAXone 2,000 MG in Water for inj. (sterile) 20 ML 20 ML IVP SCH (08:10)
--- NOTE | 2019-01-23 09:55 | Infectious Disease Progress No ---
ID Progress Note Date of Encounter: 01/23/19 Time of Encounter: 09:53 - Subjective Subjective: Patient seen and examined. No acute events noted overnight. Patient denies fevers, chills, rigors. Denies chest pain, shortness of breath, or cough. Denies nausea, vomiting, diarrhea, or constipation. Denies abdominal pain or urinary complaints. States last bowel movement was this morning. Reports mild pain in the right foot that is improved with PO pain medication. States her appetite is good. Denies any oral thrush or new skin lesions. - Objective CBC & Chem 7: 01/23/19 04:25 01/23/19 04:00 - Line Documentation Line Documentation: Midline - Exam Vitals: Temp Pulse Resp BP Pulse Ox 98.0 F 77 16 144/74 95 01/23/19 07:26 01/23/19 07:26 01/23/19 07:26 01/23/19 07:26 01/23/19 07:26 Exam: Head: Atraumatic, normal inspection, normocephalic. Eye: EOMI, PERRLA, no scleral icterus noted. ENT: Mucous membranes moist. No odontogenic infection noted. Neck: Normal inspection, no meningismus. Respiratory: Clear to auscultation. No rales, respiratory distress, rhonchi, or wheezes noted. Cardiovascular: Regular rate and rhythm, S1 and S2 audible. No murmurs, rubs, or gallops. GI: Soft, obese, normal bowel sounds. Extremities: Right foot dressing C/D/I. Back: Normal inspection. No vertebral tenderness noted. Neurological: Alert, oriented 3, no focal deficits. Psychiatric: normal affect, normal mood. Skin: Dry, intact, warm. Normal color. No rashes. - Assessment and Plan (1) Sepsis Current Visit: Yes Status: Acute The patient had 3 sepsis criteria on admission. Likely secondary to right great toe cellulitis and osteomyelitis. Improved. Leukocytosis has resolved. She has been afebrile. Tachycardia has resolved. Blood cultures drawn 01/12/19 are negative 2 sets. Qualifiers: Sepsis type: sepsis due to unspecified organism Qualified Code(s): A41.9 - Sepsis, unspecified organism SNOMED Code(s): 55773837 (2) Osteomyelitis Current Visit: Yes Status: Acute Location: Distal aspect of the first phalanx of the right foot. Causative organism: S. capitis. Swab cultures are negative. MRI of the right foot showed findings consistent with osteomyelitis. ESR elevated at 41 with a CRP of 26. Podiatry consulted. Status post I & D right first toe with bone biopsy. Operative note reviewed. Intra-op cultures as above. Currently on Rocephin. Qualifiers: Osteomyelitis type: acute hematogenous Osteomyelitis location: foot Laterality: right Qualified Code(s): M86.071 - Acute hematogenous osteomyelitis, right ankle and foot SNOMED Code(s): 65854138 (3) Cellulitis of right foot Current Visit: No Status: Acute Location: Right great toe. Etiology: Likely secondary to recent trauma. Causative organism: S. capitis per intra-op cultures. Podiatry consult. Status post bedside nail avulsion procedure 01/13/19. Small amount of purulent drainage noted, but cultures are negative. Currently on Rocephin. SNOMED Code(s): 057682464 (4) Diabetes mellitus Current Visit: Yes Status: Chronic Uncontrolled. Hemoglobin A1c 11.1%. Recommend aggressive glucose monitor and control to promote wound healing and prevent reinfection. Management per the primary team. Qualifiers: Diabetes mellitus type: type 2 Diabetes mellitus long term care pharmacist insulin use: with prison use Diabetes mellitus complication status: with unspecified complications Qualified Code(s): E11.8 - Type 2 diabetes mellitus with unspecified complications; Z79.4 - long term care pharmacist (current) use of insulin SNOMED Code(s): 29839808 (5) Obesity Current Visit: Yes Status: Acute Qualifiers: Obesity type: due to excess calories Obesity classification: adult class 2 (BMI 35 - 39.9) Serious obesity comorbidity presence: with serious comorbidity Body mass index: BMI 35.0-35.9 Qualified Code(s): E66.01 - Morbid (severe) obesity due to excess calories; Z68.35 - Body mass index (BMI) 35.0-35.9, adult SNOMED Code(s): 985946018, 305441713 - Recommendations Recommendations: Wound care and activity restrictions per the podiatry team. Continue Rocephin 2 g IV daily. Duration of treatment depends on the clinical picture, likely a total of 6 weeks. Monitor renal function for drug toxicity and dose adjust antibiotics. services delivery driver to assist with discharge planning. Will need weekly CBC, BUN/creatinine, ESR, CRP. Will need weekly IV care per protocol. Follow-up with ID 02/06/19 at 1405. Consult Discharge Plan - Plan Additional Instructions: Referrals: Og Manning DPM [Partnered Physician] - 01/25/19 1:00 pm (Please follow up as schedule...) Carolyn Mendiola CNP [Primary Care Provider] - 01/19/19 10:00 am (Please follow up as schedule....) Damari Snowden CNP [Advanced Practice Nurse] - 02/06/19 2:05 pm Prescriptions: cefTRIAXone [Rocephin] 2,000 mg IVPB DAILY #38 vial
--- NOTE | 2019-01-23 10:52 | Discharge Summary ---
- NOTES TO OUTPATIENT PROVIDER Notes to Outpatient Provider: 1. Cont rocephin 2g iv daily to finish 6 wks abx ( until 02/23/19), per ID recommendation. Please check CBC/BMP/CRP/ESR weekly and IV care per protocol weekly. Orders not resulted at time of discharge: Pending orders 01/18/19 15:35 AFB Culture, Tissue [TB] Routine AFB Smear [TB] Routine Fungal Culture [MYC] Routine Date of Encounter: 01/23/19 Time of Encounter: 09:00 - Discharge Diagnosis (1) Essential hypertension Priority: Secondary Status: Chronic (2) Diabetes mellitus Priority: Secondary Status: Chronic Qualifiers: Diabetes mellitus type: type 2 Diabetes mellitus halfway insulin use: with halfway use Diabetes mellitus complication status: with unspecified complications Qualified Code(s): E11.8 - Type 2 diabetes mellitus with unspecified complications; Z79.4 - penitentiary (current) use of insulin (3) Cellulitis of great toe of right foot Priority: Primary Status: Inactive (4) Obesity Priority: Secondary Status: Acute Qualifiers: Obesity type: due to excess calories Obesity classification: adult class 2 (BMI 35 - 39.9) Serious obesity comorbidity presence: with serious comorbidity Body mass index: BMI 35.0-35.9 Qualified Code(s): E66.01 - Morbid (severe) obesity due to excess calories; Z68.35 - Body mass index (BMI) 35.0-35.9, adult Hospital course: Ms. Galicia is a 58 year old female presented to ER for right-sided foot first toe infection. Podiatry consult saw patient and had debridement 2. Patient has high ESR and CRP, osteomyelitis considered. ID consult saw patient. Recommend Rocephin 2 g IV to finish a total 6 week treatment. Home infusion arranged. I have seen and examined the patient today. Patient feels fine. No fever, no chills, no leukocytosis. Minimal right big toe pain. Vitals are stable. Will DC patient home and continue home infusion antibiotic. Follow-up with PCP and ID and podiatry as outpatient. Discharge discussed with: patient - Time Spent with Patient Total time spent providing and/or coordinating discharge services: 40 minutes Time spent: Greater than 30 minutes - Discharge Medications Prescriptions: New cefTRIAXone [Rocephin] 2,000 mg IVPB DAILY #38 vial Lactobacillus [Culturelle] 2 each PO DAILY 45 Days #90 cap.sprink Continue metFORMIN [Glucophage] 1,000 mg PO BID Lisinopril [Zestril] 40 mg PO BID Atorvastatin [Lipitor] 40 mg PO QPM Canagliflozin [Invokana] 100 mg PO DAILY Amitriptyline [Elavil] 25 mg PO HS Amlodipine Besylate 2.5 mg PO DAILY Liraglutide [Victoza 3-Mo] 0.6 mg SQ DAILY Insulin Glargine,Hum.rec.anlog [Lantus Solostar] 50 unit SQ DAILY Aspirin/Caffeine [Back-Body Pain 500-32.5MG Cplt] 2 tab PO DAILY PRN PRN Reason: Pain Discontinued Doxycycline Monohydrate [Mondoxyne Nl] 50 mg PO DAILY Home Medications: Lisinopril [Zestril] 40 mg PO BID 09/08/16 [History] metFORMIN [Glucophage] 1,000 mg PO BID 09/08/16 [History] Atorvastatin [Lipitor] 40 mg PO QPM 01/12/19 [History] Canagliflozin [Invokana] 100 mg PO DAILY 01/12/19 [History] Amitriptyline [Elavil] 25 mg PO HS 01/15/19 [History] Amlodipine Besylate 2.5 mg PO DAILY 01/15/19 [History] Aspirin/Caffeine [Back-Body Pain 500-32.5MG Cplt] 2 tab PO DAILY PRN 01/15/19 [History] Insulin Glargine,Hum.rec.anlog [Lantus Solostar] 50 unit SQ DAILY 01/15/19 [History] Liraglutide [Victoza 3-Mo] 0.6 mg SQ DAILY 01/15/19 [History] cefTRIAXone [Rocephin] 2,000 mg IVPB DAILY #38 vial 01/22/19 [Rx] Lactobacillus [Culturelle] 2 each PO DAILY 45 Days #90 cap.sprink 01/23/19 [Rx] Allergies/Adverse Reactions: Allergy/AdvReac Type Severity Reaction Status Date / Time sulfacetamide AdvReac Swelling Verified 01/15/19 09:03 of Lip/Tongue/Throat Date of admission: 01/12/19 23:01 Primary care physician: Carolyn Mendiola CNP Consults: 01/12/19 22:30 Consult to Podiatry [CONS] Stat Consulting Provider: Pod[facility] Reason for Consult: RLE cellulitis and possible paronychia Call Completed: No 01/17/19 09:58 Consult to Infectious Diseases [CONS] Routine Consulting Provider: Infectious Disease [facility] Reason for Consult: MRI concern for osteomyelitis Call Completed: Yes 01/22/19 13:30 Consult to Invasive Line Access Team [CONS] Routine Reason for Consult: Rocephin x 6 weeks Line Type: Midline PICC line indications: director of market analysis Med/Antibiotic Time Notified: 13:30 Call Completed: Yes Discharging clinician: Jn Begum Anticipated date of discharge: 01/23/19 - Constitutional Vitals: Temp Pulse Resp BP Pulse Ox 98.0 F 77 16 144/74 95 01/23/19 07:26 01/23/19 07:26 01/23/19 07:26 01/23/19 07:26 01/23/19 07:26 Exam: Vitals: Reviewed General: Obese white woman lying in bed in NAD Skin: Warm and supple. HEENT: Moist mucous membranes. No conjunctivae pallor. Neck: No lymphadenopathy. No JVD. No carotid bruits. No palpable thyroid. Chest: Normal thoracic expansion. Normal breath sounds. Clear to auscultation. Heart: Normal S1 & S2; rhythmic. No rubs or murmurs. Abdomen: Non-distended, soft and non-tender to palpation. No peritoneal reaction. Extremities: No clubbing, cyanosis. Right big toe s/p nail removal, well dressed. No calf tenderness. Normal distal pulses. Neurological: Awake, alert and oriented to person, place and time. No focal deficits. Psych: Affect appropriate. - Patient Status Disposition: Home Health Service Condition: Good Functional capacity at discharge: uses cane/walker Overall status at discharge: patient is progressing back to baseline - Discharge Instructions Follow Up With: Og Manning DPM [Partnered Physician] - 01/25/19 1:00 pm (Please follow up as schedule...) Carolyn Mendiola CNP [Primary Care Provider] - 01/19/19 10:00 am (Please follow up as schedule....) Damari Snowden NONDESTRUCTIVE TESTER [Advanced Practice Nurse] - 02/06/19 2:05 pm Additional Instructions: - Diet and Activity Activity: as per physical therapy Diet: diabetic diet
--- NOTE | 2019-01-23 11:00 | Physician Discharge Referral ---
Home Health/Hosp Referral Info Transfer to: Home Health Provider in Charge Post Discharge: PCP - Diagnosis (1) Essential hypertension Status: Chronic (2) Diabetes mellitus Status: Chronic (3) Cellulitis of great toe of right foot Status: Inactive (4) Obesity Status: Acute - Respiratory Orders Smoking Cessation: Smoking cessation has been advised. For more information, call the [employer] Quit Line at 1-281-JMZK-NOW. - Dressing/Wound Care Site: Right big toe. - Diet/Nutrition Diet/Nutrition Orders: No Concentrated Sweets - Services Needed Following services are medically necessary services: Nursing, Home Infusion Other Treatments: Cont rocephin 2g iv daily to finish 6 wks abx ( until 02/23/19), per ID recommendation. Please check CBC/BMP/CRP/ESR weekly and IV care per protocol weekly. - Transfer Medications Prescriptions: cefTRIAXone [Rocephin] 2,000 mg IVPB DAILY #38 vial Lactobacillus [Culturelle] 2 each PO DAILY 45 Days #90 cap.sprink Home Medications: Lisinopril [Zestril] 40 mg PO BID 09/08/16 [History] metFORMIN [Glucophage] 1,000 mg PO BID 09/08/16 [History] Atorvastatin [Lipitor] 40 mg PO QPM 01/12/19 [History] Canagliflozin [Invokana] 100 mg PO DAILY 01/12/19 [History] Amitriptyline [Elavil] 25 mg PO HS 01/15/19 [History] Amlodipine Besylate 2.5 mg PO DAILY 01/15/19 [History] Aspirin/Caffeine [Back-Body Pain 500-32.5MG Cplt] 2 tab PO DAILY PRN 01/15/19 [History] Insulin Glargine,Hum.rec.anlog [Lantus Solostar] 50 unit SQ DAILY 01/15/19 [History] Liraglutide [Victoza 3-Mo] 0.6 mg SQ DAILY 01/15/19 [History] cefTRIAXone [Rocephin] 2,000 mg IVPB DAILY #38 vial 01/22/19 [Rx] Lactobacillus [Culturelle] 2 each PO DAILY 45 Days #90 cap.sprink 01/23/19 [Rx] Allergies/Adverse Reactions: Allergy/AdvReac Type Severity Reaction Status Date / Time sulfacetamide AdvReac Swelling Verified 04/15/19 09:03 of Lip/Tongue/Throat Certification: Further, I certify that my clinical findings support that this patient is homebound (i.e. absences from home require considerable and taxing effort and are for medical reasons or congregation services or infrequently or short duration when for other reasons) because: Homebound Reason: Patient requires assistance of a person or device to safely leave home Attestation: My signature below is to certify that this patient is under my care and that I, or nurse practitioner, or a physician's assistant finance manager working with me, has a [id number] encounter with this patient.
--- NOTE | 2019-01-23 13:14 | Podiatry Progress Note ---
Date of Encounter: 01/23/19 Time of Encounter: 12:00 - Assessment and Plan (1) Osteomyelitis Current Visit: Yes Status: Acute Assessment: S/P I&D and bone biopsy 01.18.[address] Manning WBC 9.2 and afebrile Acid fast, fungal, anaerobic cultures negative Wound culture positive for staph capitus ID on board for antibiotic management. Currently on Vanc and Zosyn. Surgical bone biopsy positive for staph capitus Overall appearance of right hallux has improved Patient healing well and without complications Plan: Continue IV antibiotics per ID recommendations- May be discharged on antibiotic recommendations per ID- Discharged on IV rocephin likely for 6 weeks at this time patient does not need to return to OR for further debridement- healing well and cellulitis and appearance of right hallux has improved Cleansed with 0.9 normal saline, painted with betadine, covered with Adaptic, secured with Kerlix and Medipore tape Patient will need to be seen by in podiatry clinic 1 week after discharge- appointment was made and provided to patient per nursing staff Has post op shoe at bedside Ambulatory with post op shoe gear only Elevate and limit activity to promote healing Leave dressing intact until seen at post operative visit. Patient made aware of plan, denies questions or concerns at this time. ] Qualifiers: Osteomyelitis type: acute hematogenous Osteomyelitis location: foot Laterality: right Qualified Code(s): M86.071 - Acute hematogenous osteomyelitis, right ankle and foot (2) Paronychia Current Visit: Yes Status: Acute Paronychia right hallux s/p nail avulsion 01/[address] 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 S/P I&D and bone biopsy of right hallux with Dr. Baum 01/18/19. Alert and oriented x 3. Patient reports pain 2/10. Denies fevers, chills, nausea, vomiting, or diarrhea. Denies chest pain, calf pain, or shortness of breath. Dressing to RLE clean dry and intact. Patient has post operative shoe on and awaiting her ride to pick her up. Patient has been discharged and ready to leave. No other questions or concerns at this time. Denies any events through the night Objective - Vital Signs Vital Signs: Vital Signs Temp Pulse Resp BP Pulse Ox 01/23/19 07:26 98.0 F 77 16 144/74 95 01/23/19 03:45 98.1 F 89 16 128/62 97 01/22/19 23:26 98.4 F 89 16 129/68 95 01/22/19 18:50 98.9 F 92 16 153/79 96 01/22/19 15:53 97.8 F 79 17 160/80 95 Intake and Output 01/22/19 01/23/19 01/23/19 23:59 07:59 15:59 Intake Total 610 / 610 360 / 360 Balance 610 / 610 360 / 360 Intake: IV Fluids 370 / 370 Rocephin 2,000 MG In Water for / 20 inj. (sterile) 20 ML @ 600 mls/ hr IVP DAILY [facility] Rx#:[id number] Zosyn 3.375 GM In 0.9 % Sodium 100 / 100 Chloride (Mini-Bag +) 100 ML @ 25 mls/hr IVPB Q8HR [facility] Rx#: [id number] Vancocin 1,000 MG In 0.9 % 250 / 250 Sodium Chloride 250 ML @ 167 mls/hr IVPB Q12H [facility] Rx#: [id number] Oral 240 / 240 360 / 360 Other: Meal Dinner Breakfast Percent of Meal Consumed 95% 100% # Voids 1 Weight 97.7 kg Blood Glucose* 270 192 263 - Exam Exam: Podiatry General Exam: General appearance: alert awake oriented X 3. Calm and pleasant, no acute distress.. Vascular: Pedal pulses +2/4 DP/PT , No evidence of cyanosis, pallor or rubor, Edema graded at 1+/4, Skin Temperature warm, No calf pain with manual compression. capillary refill time is immediate to digits. Neurologic: Sensation intact with light touch to foot. . Patient reports tingling of right hallux. MUSCULOSKELETAL: Movement of all toes intact. AROM complete per patient. Postop Exam: S/P Sutures intact to incision lines x2 to right hallux, no signs of dehiscence. No open area, no drainage, no odor, improvement in erythema, no streaking. Minimal edema. Overall improvement in appearance of toe and right foot. No appearance of streaking or ascending cellultis. - Lab Result Diagrams: 01/23/19 04:25 01/23/19 04:00 Labs: Abnormal lab results Hct 34.6 % (35.3-44.9) L 01/23/19 04:25 ESR 41 mm/hr (0-15) H 01/17/19 02:58 Glucose 197 mg/dL (70-105) H 01/23/19 04:00 POC Glucose 270 mg/dL (70-99) H 01/22/19 20:00 Hemoglobin A1c 11.1 % (-5.6) H 01/13/19 05:31 Alkaline Phosphatase 185 Units/L (34-104) H 01/12/19 19:36 C-Reactive Protein 26 mg/L (Less than 10) H 01/17/19 02:58 Globulin 3.9 g/dL (2.4-3.5) H 01/12/19 19:36 Albumin/Globulin Ratio 0.9 (1.1-2.2) L 01/12/19 19:36 Urine Glucose (UA) >=1000 mg/dL (Normal) H 01/12/19 20:17 Ur Leukocyte Esterase Trace (Negative) H 01/12/19 20:17 Urine Microscopic WBC 5-15 per hpf (0-3) H 01/12/19 20:17 Ur Squamous Epith Cells Many per lpf (None-Few) H 01/12/19 20:17 Ur Culture Indicated? NO. (NO) A 01/12/19 20:17 Vancomycin Trough 13 mcg/mL (5-10) H 01/20/19 04:02 Microbiology, Last 48 Hours 01/18/19 15:35 Anaerobic Culture - Final Right Great Toe No anaerobes were recovered. Consult Discharge Plan - Plan Instructions: Ceftriaxone (Injection), Probiotic (By mouth) Additional Instructions: Referrals: Og Manning, DPM [Partnered Physician] - 01/25/19 1:00 pm (Please follow up as schedule...) Carolyn Mendiola [employer] [Primary Care Provider] - 01/19/19 10:00 am (Please follow up as schedule....) Damari Snowden CNP [Advanced Practice Nurse] - 02/06/19 2:05 pm Prescriptions: cefTRIAXone [Rocephin] 2,000 mg IVPB DAILY #38 vial Lactobacillus [Culturelle] 2 each PO DAILY 45 Days #90 [email or web address]
== END 2019-01-23 13:31 | disposition home health service (06) | DRG 854 ==
LOC: 2ANU 18:01 → EMEROOARM 18:01 → 2ANU 23:06
PROVIDERS: ADMIT Internal Medicine; ATTEND Internal Medicine

== ENCOUNTER 2021-03-24 11:23 | Observation (INO) ==
[2021-03-24] MEDS ORDERED: Isovue-370 500 ML BOTTLE IVP ONE (12:01)
[2021-03-24 12:29] LABS: Basophils % 0.4 %; Eosinophils % 1.7 %; Hematocrit 33.7 % (35.3-44.9); Hemoglobin 11.3 g/dL (11.5-15.4); Immature Granulocytes % 0.8 % (0-4); Lymphocytes % 13.5 %; Mean Corpuscular HGB Conc 33.5 g/dL (31.6-35.5); Mean Corpuscular Hemoglobin 30.6 pg (28.0-33.3); Mean Corpuscular Volume 91.3 fL (83.0-100.0); Mean Platelet Volume 10.2 fL (9.4-12.4); Monocytes % 6.7 %; Platelet Count 275 K/mcL (140-400); Red Blood Count 3.69 M/mcL (3.82-4.97); Red Cell Distribution Width 12.9 % (11.5-14.5); Segmented Neutrophils % 76.9 %; White Blood Count 17.4 K/mcL (4.3-11.1)
[2021-03-24 12:30] LABS: Basophils # 0.1 K/mcL (0.0-0.2); Eosinophils # 0.3 K/mcL (0.0-0.6); Lymphocytes # 2.4 K/mcL (0.6-4.6); Monocytes # 1.2 K/mcL (0.0-1.3); Neutrophils # 13.4 K/mcL (1.6-8.9)
[2021-03-24 13:12] LABS: BUN/Creatinine Ratio 24 (6-26); Blood Urea Nitrogen 23 mg/dL (8-23); C-Reactive Protein 104 mg/L (Less than 10); Calcium 9.3 mg/dL (8.6-10.3); Carbon Dioxide 23 mEq/L (23-29); Chloride 97 mEq/L (98-107); Glucose 173 mg/dL (70-105); Osmolality,Calculated 286 (280-300); Sodium 134 mEq/L (136-145); eGFR For African Americans > 60 (> 60); eGFR For Non-African Americans > 60 (> 60)
[2021-03-24] MEDS ORDERED: 0.9 % Sodium Chloride 1,000 ML IVC ONE ×3 (13:49→15:13)
[2021-03-24] MEDS ORDERED: Piperacillin/Tazobactam 3.375 GM in 0.9 % Sodium Chloride Mini Bag 100 ML IVPB ONE (14:59)
[2021-03-24] MEDS ORDERED: *HR* Dextrose 50 % in Water (Vial) 50 ML VIAL IVP PRN (15:13)
[2021-03-24] MEDS ORDERED: MOM Conc 10 ML UD.LIQ PO PRN (15:13)
[2021-03-24] MEDS ORDERED: Acetaminophen 325 MG TABLET PO PRN (15:13)
[2021-03-24] MEDS ORDERED: D5% in Water 1,000 ML IVC PRN (15:13)
[2021-03-24] MEDS ORDERED: Naloxone 0.4 MG/ML INJ IVP PRN (15:13)
[2021-03-24] MEDS ORDERED: Mag Hydrox/Al Hydrox/Simeth 30 ML UDC PO PRN (15:13)
[2021-03-24] MEDS ORDERED: Ondansetron ODT 4 MG TAB.RAPDIS SL PRN (15:13)
[2021-03-24] MEDS ORDERED: Dextrose Gel 15 GM/37.5 ML TUBE PO PRN ×2 (15:13)
[2021-03-24] MEDS ORDERED: Melatonin 3 MG TABLET PO PRN (15:13)
[2021-03-24] MEDS ORDERED: Vancomycin 1,250 MG/262.5 ML IV.SOLN IVPB ONE (16:00)
[2021-03-24] MEDS ORDERED: Vancomycin (wt based) 1,000 MG VIAL IVPB SCH (16:00)
[2021-03-24] MEDS: Insulin LISPRO 300 UNITS/3 ML VIAL SUBQ SCH ×2 (17:43→20:41)
[2021-03-24] MEDS: *HR* Heparin 5,000 UNIT/ML VIAL SQ SCH (22:55)
[2021-03-24] MEDS: Piperacillin/Tazobactam 3.375 GM in 0.9 % Sodium Chloride Mini Bag 100 ML IVPB SCH (23:02)
[2021-03-25] MEDS: Vancomycin 1,250 MG/262.5 ML IV.SOLN IVPB SCH ×2 (05:48→17:06)
[2021-03-25] MEDS: *HR* Heparin 5,000 UNIT/ML VIAL SQ SCH ×3 (05:48→23:17)
[2021-03-25 07:00] LABS: Hematocrit 30.5 % (35.3-44.9); Hemoglobin 10.1 g/dL (11.5-15.4); Mean Corpuscular HGB Conc 33.1 g/dL (31.6-35.5); Mean Corpuscular Hemoglobin 30.3 pg (28.0-33.3); Mean Corpuscular Volume 91.6 fL (83.0-100.0); Mean Platelet Volume 10.6 fL (9.4-12.4); Platelet Count 238 K/mcL (140-400); Red Blood Count 3.33 M/mcL (3.82-4.97); Red Cell Distribution Width 12.9 % (11.5-14.5); White Blood Count 10.8 K/mcL (4.3-11.1)
[2021-03-25 07:22] LABS: BUN/Creatinine Ratio 20 (6-26); Blood Urea Nitrogen 18 mg/dL (8-23); Calcium 8.6 mg/dL (8.6-10.3); Carbon Dioxide 24 mEq/L (23-29); Chloride 104 mEq/L (98-107); Glucose 106 mg/dL (70-105); Magnesium 1.8 mg/dL (1.6-2.6); Osmolality,Calculated 286 (280-300); Potassium 3.5 mEq/L (3.5-5.1); Sodium 137 mEq/L (136-145); eGFR For African Americans > 60 (> 60); eGFR For Non-African Americans > 60 (> 60)
[2021-03-25] MEDS: Insulin LISPRO 300 UNITS/3 ML VIAL SUBQ SCH ×4 (08:23→20:27)
[2021-03-25] MEDS: Piperacillin/Tazobactam 3.375 GM in 0.9 % Sodium Chloride Mini Bag 100 ML IVPB SCH ×3 (09:30→23:17)
[2021-03-25] MEDS: amLODIPine 5 MG TABLET PO SCH (17:01)
[2021-03-26 03:36] LABS: Mean Corpuscular HGB Conc 33.3 g/dL (31.6-35.5); Mean Corpuscular Hemoglobin 30.4 pg (28.0-33.3); Mean Corpuscular Volume 91.2 fL (83.0-100.0); Mean Platelet Volume 9.8 fL (9.4-12.4); Platelet Count 245 K/mcL (140-400); Red Blood Count 3.29 M/mcL (3.82-4.97); Red Cell Distribution Width 12.8 % (11.5-14.5)
[2021-03-26 03:44] LABS: Alanine Aminotransferase 23 Units/L (7-52); Albumin 3.2 g/dL (3.5-5.7); Alkaline Phosphatase 105 Units/L (34-104); Aspartate Amino Transferase 29 Units/L (13-39); BUN/Creatinine Ratio 15 (6-26); Bilirubin,Direct 0.1 mg/dL (0.0-0.2); Bilirubin,Indirect 0.4 mg/dL (0.0-1.0); Bilirubin,Total 0.5 mg/dL (0.3-1.0); Blood Urea Nitrogen 16 mg/dL (8-23); C-Reactive Protein 71 mg/L (Less than 10); Calcium 8.4 mg/dL (8.6-10.3); Carbon Dioxide 22 mEq/L (23-29); Chloride 104 mEq/L (98-107); Globulin 3.2 g/dL (2.4-3.5); Glucose 197 mg/dL (70-105); Osmolality,Calculated 291 (280-300); Potassium 3.7 mEq/L (3.5-5.1); Sodium 137 mEq/L (136-145); Total Protein 6.4 g/dL (6.4-8.9); eGFR For African Americans > 60 (> 60); eGFR For Non-African Americans 54 (> 60)
[2021-03-26] MEDS: Vancomycin 1,250 MG/262.5 ML IV.SOLN IVPB SCH ×2 (05:21→16:07)
[2021-03-26] MEDS: *HR* Heparin 5,000 UNIT/ML VIAL SQ SCH ×3 (06:49→22:47)
[2021-03-26] MEDS: Insulin LISPRO 300 UNITS/3 ML VIAL SUBQ SCH ×4 (09:01→22:47)
[2021-03-26] MEDS: Piperacillin/Tazobactam 3.375 GM in 0.9 % Sodium Chloride Mini Bag 100 ML IVPB SCH ×2 (09:01→16:07)
[2021-03-26] MEDS: amLODIPine 5 MG TABLET PO SCH (09:01)
[2021-03-27] MEDS: Piperacillin/Tazobactam 3.375 GM in 0.9 % Sodium Chloride Mini Bag 100 ML IVPB SCH ×2 (00:31→08:24)
[2021-03-27] MEDS: Vancomycin 1,250 MG/262.5 ML IV.SOLN IVPB SCH (04:12)
[2021-03-27] MEDS: *HR* Heparin 5,000 UNIT/ML VIAL SQ SCH (05:17)
[2021-03-27 05:23] LABS: BUN/Creatinine Ratio 21 (6-26); Blood Urea Nitrogen 18 mg/dL (8-23); C-Reactive Protein 40 mg/L (Less than 10); Calcium 8.9 mg/dL (8.6-10.3); Carbon Dioxide 24 mEq/L (23-29); Chloride 106 mEq/L (98-107); Glucose 206 mg/dL (70-105); Osmolality,Calculated 300 (280-300); Potassium 3.9 mEq/L (3.5-5.1); Sodium 141 mEq/L (136-145); eGFR For African Americans > 60 (> 60); eGFR For Non-African Americans > 60 (> 60)
[2021-03-27] MEDS: amLODIPine 5 MG TABLET PO SCH (08:57)
[2021-03-27] MEDS: Insulin LISPRO 300 UNITS/3 ML VIAL SUBQ SCH (09:00)
[2021-03-27 10:27] VITALS: BP 149/84
== END 2021-03-27 10:59 | disposition home or self-care (01) ==
LOC: EMEROOARM 11:23 → 3ANU 11:23 → SUATTDRO 16:17 → 3ANU 17:13
PROVIDERS: ADMIT Internal Medicine; ATTEND Internal Medicine

== ENCOUNTER 2021-05-11 19:09 | Inpatient (IN) ==
[2021-05-11] MEDS ORDERED: Acetaminophen 325 MG TABLET PO ONE (19:14)
[2021-05-11] MEDS ORDERED: methylPREDNISolone 125 MG/2 ML VIAL IVP ONE (19:16)
[2021-05-11] MEDS ORDERED: Ipratropium/Albuterol Neb 3 ML IH ONE (19:16)
[2021-05-11 19:29] LABS: ABG Base Excess -3 mEq/L (-2 to 3); ABG HCO3 21 mEq/L (21-27); ABG Oxygen Saturation 89 % (95-98); ABG PCO2 33 mmHg (35-45); ABG PH 7.41 pH Units (7.32-7.45); ABG PO2 55 mmHg (85-104); ABG TCO2 22 mEq/L (20-26)
[2021-05-11 20:54] LABS: Basophils # 0.1 K/mcL (0.0-0.2); Basophils % 0.4 %; Hematocrit 34.8 % (35.3-44.9); Hemoglobin 11.7 g/dL (11.5-15.4); Immature Granulocytes % 3.2 % (0-4); Lymphocytes # 0.9 K/mcL (0.6-4.6); Lymphocytes % 7.3 %; Mean Corpuscular HGB Conc 33.6 g/dL (31.6-35.5); Mean Corpuscular Hemoglobin 29.7 pg (28.0-33.3); Mean Corpuscular Volume 88.3 fL (83.0-100.0); Mean Platelet Volume 11.2 fL (9.4-12.4); Monocytes # 0.6 K/mcL (0.0-1.3); Monocytes % 4.5 %; Neutrophils # 10.7 K/mcL (1.6-8.9); Nucleated Red Blood Cells 0.3 /100 WBC (0); Platelet Count 361 K/mcL (140-400); Red Blood Count 3.94 M/mcL (3.82-4.97); Red Cell Distribution Width 13.4 % (11.5-14.5); Segmented Neutrophils % 84.6 %; White Blood Count 12.7 K/mcL (4.3-11.1)
[2021-05-11] MEDS ORDERED: cefTRIAXone 1,000 MG in 0.9 % Sodium Chloride Mini Bag 100 ML IVPB ONE (21:18)
[2021-05-11] MEDS ORDERED: Azithromycin 250 MG TABLET PO ONE (21:18)
[2021-05-11] MEDS ORDERED: Isovue-370 500 ML BOTTLE IVP ONE (21:32)
[2021-05-11 21:42] LABS: Alanine Aminotransferase 24 Units/L (7-52); Albumin 3.3 g/dL (3.5-5.7); Alkaline Phosphatase 91 Units/L (34-104); Aspartate Amino Transferase 38 Units/L (13-39); BUN/Creatinine Ratio 49 (6-26); Bilirubin,Direct 0.2 mg/dL (0.0-0.2); Bilirubin,Indirect 0.4 mg/dL (0.0-1.0); Bilirubin,Total 0.6 mg/dL (0.3-1.0); Blood Urea Nitrogen 76 mg/dL (8-23); C-Reactive Protein 86 mg/L (Less than 10); Calcium 8.9 mg/dL (8.6-10.3); Carbon Dioxide 16 mEq/L (23-29); Chloride 100 mEq/L (98-107); Ferritin 463 ng/mL (10-120); Glucose 213 mg/dL (70-105); Lactate Dehydrogenase 420 Units/L (140-271); Magnesium 2.1 mg/dL (1.6-2.6); Osmolality,Calculated 309 (280-300); Phosphorous 4.5 mg/dL (2.7-4.5); Potassium 3.5 mEq/L (3.5-5.1); Sodium 135 mEq/L (136-145); Troponin I < 0.03 ng/mL (< 0.04); eGFR For African Americans 42 (> 60); eGFR For Non-African Americans 34 (> 60)
[2021-05-11] MEDS ORDERED: Naloxone 0.4 MG/ML INJ IVP PRN (21:48)
[2021-05-11] MEDS ORDERED: *HR* Heparin 5,000 UNIT/ML VIAL SQ SCH (22:00)
[2021-05-11] MEDS ORDERED: *HR* Enoxaparin 100 MG/ML SYRINGE SQ STA (22:21)
[2021-05-11 23:13] LABS: Influenza A PCR Negative (Negative); Influenza B PCR Negative (Negative); Resp. Syncytial Virus PCR Negative (Negative)
[2021-05-11 23:18] LABS: SARS-CoV-2 by PCR (In House) Positive (Negative)
[2021-05-11 23:39] LABS: Albumin/Globulin Ratio 0.8 (1.1-2.2); Total Protein 7.3 g/dL (6.4-8.9)
[2021-05-12 01:30] LABS: INR 1.2
[2021-05-12 02:04] LABS: Activated Partial Thrombo Time 20.4 Seconds (26.0-36.0)
[2021-05-12] MEDS: Ringers Solution, Lactated 1,000 ML IVC SCH ×2 (03:46→17:13)
[2021-05-12] MEDS ORDERED: Dextrose Gel 15 GM/37.5 ML TUBE PO PRN ×2 (04:18)
[2021-05-12] MEDS ORDERED: *HR* Dextrose 50 % in Water (Vial) 50 ML VIAL IVP PRN (04:18)
[2021-05-12] MEDS ORDERED: D5% in Water 1,000 ML IVC PRN (04:18)
[2021-05-12] MEDS: Insulin LISPRO 300 UNITS/3 ML VIAL SUBQ SCH ×3 (05:52→17:14)
[2021-05-12] MEDS: *HR* Enoxaparin 100 MG/ML SYRINGE SQ SCH ×2 (05:52→17:13)
[2021-05-12 08:06] LABS: Hematocrit 34.5 % (35.3-44.9); Hemoglobin 11.8 g/dL (11.5-15.4); Mean Corpuscular HGB Conc 34.2 g/dL (31.6-35.5); Mean Corpuscular Hemoglobin 30.5 pg (28.0-33.3); Mean Corpuscular Volume 89.1 fL (83.0-100.0); Mean Platelet Volume 11.7 fL (9.4-12.4); Platelet Count 157 K/mcL (140-400); Red Blood Count 3.87 M/mcL (3.82-4.97); Red Cell Distribution Width 13.3 % (11.5-14.5); White Blood Count 9.6 K/mcL (4.3-11.1)
[2021-05-12 08:13] LABS: INR 1.3; Prothrombin Time 14.6 Seconds (9.4-12.1)
[2021-05-12 08:24] LABS: Calcium 8.9 mg/dL (8.6-10.3); Magnesium 2.2 mg/dL (1.6-2.6); Potassium 3.7 mEq/L (3.5-5.1)
[2021-05-12] MEDS ORDERED: levoFLOXacin 750 MG/150 ML 750 MG/150 ML BAG IVPB SCH (09:00)
[2021-05-12] MEDS ORDERED: Dexamethasone Sodium Phos/PF 10 MG/ML VIAL IVP SCH (09:00)
[2021-05-12 09:43] LABS: Bacteria,Urine Few per hpf (None-Few); Bilirubin,Urine Negative (Negative); Blood,Urine Negative (Negative); Clarity,Urine Clear (Clear); Color,Urine Light-Yellow (Yellow); Glucose,Urine (UA) 100 mg/dL (Normal); Hyaline Casts,Urine Few per lpf (None Seen); Ketones,Urine Negative (Negative); Leukocyte Esterase,Urine Moderate (Negative); Mucus,Urine Few per lpf (None-Few); Nitrite,Urine Negative (Negative); PH,Urine 5.5 pH Units (5.0-8.0); Protein,Urine Trace mg/dL (Neg-Trace); RBC,Urine 0-3 per hpf (0-3); Specific Gravity,Urine 1.019 (1.010-1.025); Squamous Epithelial Cell,Urine Few per hpf (None-Few); Transitional Epi Cells,Urine Few per hpf (None-Few); Urobilinogen,Urine Normal (Normal); WBC,Urine 15-30 per hpf (0-3)
[2021-05-12] MEDS: Insulin DETEMIR 100 UNIT/ML X5UNITS SUBQ SCH (20:03)
[2021-05-12] MEDS: Ondansetron 4 MG/2 ML VIAL IVP PRN (20:43)
[2021-05-13] MEDS: Melatonin 3 MG TABLET PO PRN ×2 (00:10→21:17)
[2021-05-13] MEDS: Insulin LISPRO 300 UNITS/3 ML VIAL SUBQ SCH ×4 (00:16→18:13)
[2021-05-13] MEDS ORDERED: *HR* LORazepam 2 MG/ML VIAL IVP ONE ×2 (00:33→04:55)
[2021-05-13 00:46] LABS: Hematocrit 32.1 % (35.3-44.9); Hemoglobin 10.8 g/dL (11.5-15.4); Mean Corpuscular HGB Conc 33.6 g/dL (31.6-35.5); Mean Corpuscular Hemoglobin 29.9 pg (28.0-33.3); Mean Corpuscular Volume 88.9 fL (83.0-100.0); Mean Platelet Volume 10.1 fL (9.4-12.4); Nucleated Red Blood Cells 0.3 /100 WBC (0); Platelet Count 346 K/mcL (140-400); Red Blood Count 3.61 M/mcL (3.82-4.97); Red Cell Distribution Width 13.2 % (11.5-14.5); White Blood Count 13.5 K/mcL (4.3-11.1)
[2021-05-13 01:02] LABS: Alanine Aminotransferase 16 Units/L (7-52); Albumin 2.9 g/dL (3.5-5.7); Albumin/Globulin Ratio 0.8 (1.1-2.2); Alkaline Phosphatase 82 Units/L (34-104); Aspartate Amino Transferase 20 Units/L (13-39); BUN/Creatinine Ratio 62 (6-26); Bilirubin,Total 0.4 mg/dL (0.3-1.0); Blood Urea Nitrogen 61 mg/dL (8-23); Calcium 8.7 mg/dL (8.6-10.3); Carbon Dioxide 24 mEq/L (23-29); Chloride 102 mEq/L (98-107); Globulin 3.6 g/dL (2.4-3.5); Glucose 163 mg/dL (70-105); Osmolality,Calculated 305 (280-300); Potassium 3.8 mEq/L (3.5-5.1); Sodium 137 mEq/L (136-145); Total Protein 6.5 g/dL (6.4-8.9); eGFR For African Americans > 60 (> 60); eGFR For Non-African Americans 57 (> 60)
[2021-05-13 01:10] LABS: Lymphocytes # 1.6 K/mcL (0.6-4.6); Monocytes # 0.8 K/mcL (0.0-1.3); Neutrophils # 11.1 K/mcL (1.6-8.9); Platelet Estimate Normal (Normal); Reactive Lymphocytes Present (Not Present)
[2021-05-13] MEDS: *HR* Enoxaparin 100 MG/ML SYRINGE SQ SCH ×2 (06:22→18:07)
[2021-05-13] MEDS: Ringers Solution, Lactated 1,000 ML IVC SCH (06:43)
[2021-05-13] MEDS ORDERED: Acetaminophen 325 MG TABLET PO PRN (07:34)
[2021-05-13] MEDS: Dexamethasone Sodium Phos/PF 10 MG/ML VIAL IVP SCH (08:03)
[2021-05-13] MEDS: *HR* LORazepam 2 MG/ML VIAL IVP PRN ×2 (11:39→21:17)
[2021-05-13] MEDS: Ipratropium 1 PUFF INHALER IH SCH ×3 (11:43→20:35)
[2021-05-13] MEDS: Insulin DETEMIR 100 UNIT/ML X5UNITS SUBQ SCH (19:45)
[2021-05-13] MEDS: Ondansetron 4 MG/2 ML VIAL IVP PRN (21:17)
[2021-05-14] MEDS: Ipratropium 1 PUFF INHALER IH SCH ×6 (00:13→19:48)
[2021-05-14] MEDS: Insulin LISPRO 300 UNITS/3 ML VIAL SUBQ SCH ×4 (00:30→18:41)
[2021-05-14 00:53] LABS: Basophils # 0.1 K/mcL (0.0-0.2); Basophils % 0.5 %; Hematocrit 32.5 % (35.3-44.9); Hemoglobin 10.8 g/dL (11.5-15.4); Lymphocytes # 0.6 K/mcL (0.6-4.6); Lymphocytes % 5.1 %; Mean Corpuscular HGB Conc 33.2 g/dL (31.6-35.5); Mean Corpuscular Hemoglobin 29.6 pg (28.0-33.3); Monocytes # 0.4 K/mcL (0.0-1.3); Monocytes % 3.6 %; Neutrophils # 10.1 K/mcL (1.6-8.9); Platelet Count 323 K/mcL (140-400); Red Blood Count 3.65 M/mcL (3.82-4.97); Red Cell Distribution Width 13.2 % (11.5-14.5); Segmented Neutrophils % 84.8 %; White Blood Count 11.9 K/mcL (4.3-11.1)
[2021-05-14 01:14] LABS: Alanine Aminotransferase 15 Units/L (7-52); Albumin 2.7 g/dL (3.5-5.7); Albumin/Globulin Ratio 0.8 (1.1-2.2); Alkaline Phosphatase 86 Units/L (34-104); Aspartate Amino Transferase 22 Units/L (13-39); BUN/Creatinine Ratio 60 (6-26); Bilirubin,Total 0.6 mg/dL (0.3-1.0); Blood Urea Nitrogen 48 mg/dL (8-23); Calcium 8.7 mg/dL (8.6-10.3); Carbon Dioxide 26 mEq/L (23-29); Chloride 105 mEq/L (98-107); Globulin 3.4 g/dL (2.4-3.5); Glucose 164 mg/dL (70-105); Lactate Dehydrogenase 443 Units/L (140-271); Osmolality,Calculated 306 (280-300); Potassium 3.9 mEq/L (3.5-5.1); Sodium 140 mEq/L (136-145); Total Protein 6.1 g/dL (6.4-8.9); eGFR For African Americans > 60 (> 60); eGFR For Non-African Americans > 60 (> 60)
[2021-05-14 01:16] LABS: Platelet Estimate Normal (Normal)
[2021-05-14 01:32] LABS: Ferritin 259 ng/mL (10-120)
[2021-05-14] MEDS: *HR* Enoxaparin 100 MG/ML SYRINGE SQ SCH ×2 (05:54→18:41)
[2021-05-14] MEDS: levoFLOXacin 750 MG/150 ML 750 MG/150 ML BAG IVPB SCH (08:44)
[2021-05-14] MEDS: Dexamethasone Sodium Phos/PF 10 MG/ML VIAL IVP SCH (08:45)
[2021-05-14] MEDS: *HR* LORazepam 2 MG/ML VIAL IVP PRN (08:46)
[2021-05-14] MEDS ORDERED: Furosemide 40 MG/4 ML VIAL IVP ONE (10:47)
[2021-05-14] MEDS ORDERED: *HR* LORazepam 2 MG/ML VIAL IVP PRN (13:45)
[2021-05-14] MEDS: Dexmedetomidine HCl 400 MCG/100 ML MLS IVC SCH (14:20)
[2021-05-14] MEDS: Insulin DETEMIR 100 UNIT/ML X5UNITS SUBQ SCH (19:45)
[2021-05-15] MEDS: Ipratropium 1 PUFF INHALER IH SCH ×7 (00:01→23:56)
[2021-05-15] MEDS: Insulin LISPRO 300 UNITS/3 ML VIAL SUBQ SCH ×4 (00:01→18:35)
[2021-05-15] MEDS: Dexmedetomidine HCl 400 MCG/100 ML MLS IVC SCH ×3 (04:03→18:37)
[2021-05-15] MEDS: *HR* Enoxaparin 100 MG/ML SYRINGE SQ SCH ×2 (05:57→18:36)
[2021-05-15] MEDS: Dexamethasone Sodium Phos/PF 10 MG/ML VIAL IVP SCH (10:34)
[2021-05-15] MEDS: Cholecalciferol (D-3) 1,000 UNIT (25MCG) TABLET PO SCH (10:34)
[2021-05-15] MEDS ORDERED: Lidocaine -MPF 1% 5 ML AMPUL INFILT ONE (11:47)
[2021-05-15 13:21] LABS: Basophils # 0.1 K/mcL (0.0-0.2); Basophils % 0.4 %; Eosinophils % 0.1 %; Hematocrit 34.9 % (35.3-44.9); Immature Granulocytes % 7.1 % (0-4); Lymphocytes # 0.4 K/mcL (0.6-4.6); Lymphocytes % 2.6 %; Mean Corpuscular HGB Conc 34.4 g/dL (31.6-35.5); Mean Corpuscular Hemoglobin 29.9 pg (28.0-33.3); Mean Corpuscular Volume 86.8 fL (83.0-100.0); Monocytes # 0.4 K/mcL (0.0-1.3); Monocytes % 2.3 %; Neutrophils # 13.1 K/mcL (1.6-8.9); Platelet Count 346 K/mcL (140-400); Red Blood Count 4.02 M/mcL (3.82-4.97); Red Cell Distribution Width 13.2 % (11.5-14.5); Segmented Neutrophils % 87.5 %
[2021-05-15 13:41] LABS: Alanine Aminotransferase 17 Units/L (7-52); Albumin 2.8 g/dL (3.5-5.7); Albumin/Globulin Ratio 0.7 (1.1-2.2); Alkaline Phosphatase 154 Units/L (34-104); Aspartate Amino Transferase 29 Units/L (13-39); BUN/Creatinine Ratio 50 (6-26); Bilirubin,Total 0.8 mg/dL (0.3-1.0); Blood Urea Nitrogen 40 mg/dL (8-23); Carbon Dioxide 27 mEq/L (23-29); Chloride 103 mEq/L (98-107); Glucose 159 mg/dL (70-105); Osmolality,Calculated 305 (280-300); Potassium 3.3 mEq/L (3.5-5.1); Sodium 141 mEq/L (136-145); Total Protein 6.8 g/dL (6.4-8.9); eGFR For African Americans > 60 (> 60); eGFR For Non-African Americans > 60 (> 60)
[2021-05-15 15:09] LABS: Anisocytosis 1+ (Not Present); Platelet Estimate Normal (Normal)
[2021-05-15] MEDS ORDERED: Potassium Chloride 40 MEQ, Lidocaine 1% 2 ML in 0.9 % Sodium Chloride 500 ML IVPB ONE (15:48)
[2021-05-15] MEDS: Insulin DETEMIR 100 UNIT/ML X5UNITS SUBQ SCH (20:15)
[2021-05-16] MEDS: Insulin LISPRO 300 UNITS/3 ML VIAL SUBQ SCH ×5 (01:01→23:42)
[2021-05-16] MEDS ORDERED: *HR* LORazepam 2 MG/ML VIAL IVP ONE (04:00)
[2021-05-16] MEDS: Ipratropium 1 PUFF INHALER IH SCH ×6 (04:33→23:52)
[2021-05-16] MEDS ORDERED: *HR* Metoprolol 5 MG/5 ML VIAL IVP ONE ×2 (04:38→04:42)
[2021-05-16] MEDS ORDERED: Haloperidol Lactate 5 MG/ML VIAL IVP ONE (04:56)
[2021-05-16] MEDS: FentaNYL (PF) 1,000 MCG/100 ML IV.SOLN IVC SCH ×3 (06:00→19:34)
[2021-05-16] MEDS ORDERED: *HR* Rocuronium Bromide 50 MG/5 ML VIAL IVP ONE ×2 (06:09→15:50)
[2021-05-16] MEDS: DilTIAZem 50 MG/50 ML IV.SOLN IVC SCH ×3 (06:30→13:21)
[2021-05-16 06:36] LABS: ABG Base Excess -3 mEq/L (-2 to 3); ABG HCO3 22 mEq/L (21-27); ABG Oxygen Saturation 96 % (95-98); ABG PCO2 37 mmHg (35-45); ABG PH 7.37 pH Units (7.32-7.45); ABG PO2 83 mmHg (85-104); ABG TCO2 23 mEq/L (20-26); Blood Gas Modality ASSIST CONTROL; Blood Gas VT 480 cc
[2021-05-16] MEDS: *HR* Enoxaparin 100 MG/ML SYRINGE SQ SCH ×2 (06:57→16:37)
[2021-05-16] MEDS ORDERED: Albumin Human 5% 12.5 GM/250 ML IV.SOLN ONE (07:03)
[2021-05-16] MEDS: Albumin Human 5% 12.5 GM/250 ML IV.SOLN IVPB ONE ×3 (07:04→07:55)
[2021-05-16] MEDS ORDERED: 0.9 % Sodium Chloride 250 ML ONE ×2 (07:28→07:45)
[2021-05-16] MEDS: Dexmedetomidine HCl 400 MCG/100 ML MLS IVC SCH ×4 (07:56→22:07)
[2021-05-16] MEDS: levoFLOXacin 750 MG/150 ML 750 MG/150 ML BAG IVPB SCH (08:27)
[2021-05-16] MEDS: Dexamethasone Sodium Phos/PF 10 MG/ML VIAL IVP SCH (08:28)
[2021-05-16] MEDS: Cholecalciferol (D-3) 1,000 UNIT (25MCG) TABLET PO SCH (08:28)
[2021-05-16] MEDS: Norepinephrine 4 MG/254 ML IV.SOLN IVC SCH (09:00)
[2021-05-16] MEDS ORDERED: *HR* Cisatracurium 200 MG/20 ML VIAL IVC SCH (09:00)
[2021-05-16 09:43] LABS: ABG Base Excess -1 mEq/L (-2 to 3); ABG HCO3 25 mEq/L (21-27); ABG Oxygen Saturation 99 % (95-98); ABG PCO2 43 mmHg (35-45); ABG PH 7.37 pH Units (7.32-7.45); ABG PO2 142 mmHg (85-104); ABG TCO2 26 mEq/L (20-26); Blood Gas VT 350 cc
[2021-05-16 10:36] LABS: Basophils % 0.3 %; Eosinophils % 0.1 %; Hematocrit 31.7 % (35.3-44.9); Hemoglobin 10.7 g/dL (11.5-15.4); Immature Granulocytes % 2.9 % (0-4); Lymphocytes # 0.3 K/mcL (0.6-4.6); Lymphocytes % 2.2 %; Mean Corpuscular HGB Conc 33.8 g/dL (31.6-35.5); Mean Corpuscular Hemoglobin 30.1 pg (28.0-33.3); Mean Corpuscular Volume 89.3 fL (83.0-100.0); Mean Platelet Volume 9.9 fL (9.4-12.4); Monocytes # 0.2 K/mcL (0.0-1.3); Monocytes % 1.3 %; Neutrophils # 13.4 K/mcL (1.6-8.9); Platelet Count 256 K/mcL (140-400); Red Blood Count 3.55 M/mcL (3.82-4.97); Red Cell Distribution Width 13.3 % (11.5-14.5); Segmented Neutrophils % 93.2 %; White Blood Count 14.4 K/mcL (4.3-11.1)
[2021-05-16 10:56] LABS: Magnesium 1.7 mg/dL (1.6-2.6); Phosphorous 4.7 mg/dL (2.7-4.5)
[2021-05-16 10:58] LABS: Alanine Aminotransferase 13 Units/L (7-52); Albumin 3.2 g/dL (3.5-5.7); Alkaline Phosphatase 144 Units/L (34-104); Aspartate Amino Transferase 25 Units/L (13-39); BUN/Creatinine Ratio 40 (6-26); Blood Urea Nitrogen 41 mg/dL (8-23); Calcium 8.5 mg/dL (8.6-10.3); Carbon Dioxide 25 mEq/L (23-29); Chloride 102 mEq/L (98-107); Globulin 3.1 g/dL (2.4-3.5); Glucose 271 mg/dL (70-105); Lactate Dehydrogenase 543 Units/L (140-271); Osmolality,Calculated 308 (280-300); Potassium 3.6 mEq/L (3.5-5.1); Sodium 139 mEq/L (136-145); Total Protein 6.3 g/dL (6.4-8.9); eGFR For African Americans > 60 (> 60); eGFR For Non-African Americans 55 (> 60)
[2021-05-16 11:15] LABS: Ferritin 342 ng/mL (10-120)
[2021-05-16] MEDS: Cisatracurium 200 MG in 0.9 % Sodium Chloride 180 ML IVC SCH (13:46)
[2021-05-16] MEDS ORDERED: *HR* Etomidate 20 MG/10 ML AMPUL IVP ONE (15:50)
[2021-05-16] MEDS ORDERED: *HR* Midazolam HCl 5 MG/5 ML VIAL IVP ONE (15:50)
[2021-05-16] MEDS: Insulin DETEMIR 100 UNIT/ML X5UNITS SUBQ SCH (20:55)
[2021-05-17] MEDS ORDERED: Artificial Tears SOLN 15 ML BOTTLE BOTH EYES PRN (00:26)
[2021-05-17 02:38] LABS: Basophils % 0.3 %; Hematocrit 31.6 % (35.3-44.9); Hemoglobin 10.3 g/dL (11.5-15.4); Lymphocytes # 0.3 K/mcL (0.6-4.6); Lymphocytes % 2.1 %; Mean Corpuscular HGB Conc 32.6 g/dL (31.6-35.5); Mean Corpuscular Hemoglobin 29.9 pg (28.0-33.3); Mean Corpuscular Volume 91.9 fL (83.0-100.0); Mean Platelet Volume 10.3 fL (9.4-12.4); Monocytes # 0.2 K/mcL (0.0-1.3); Monocytes % 1.6 %; Neutrophils # 12.2 K/mcL (1.6-8.9); Platelet Count 270 K/mcL (140-400); Red Blood Count 3.44 M/mcL (3.82-4.97); Red Cell Distribution Width 13.7 % (11.5-14.5); White Blood Count 13.3 K/mcL (4.3-11.1)
[2021-05-17 02:48] LABS: VBG Ionized Calcium 1.09 mmol/L (1.15-1.35)
[2021-05-17 02:55] LABS: Calcium 8.1 mg/dL (8.6-10.3); Magnesium 1.9 mg/dL (1.6-2.6); Phosphorous 6.1 mg/dL (2.7-4.5); Potassium 4.2 mEq/L (3.5-5.1)
[2021-05-17] MEDS: FentaNYL (PF) 1,000 MCG/100 ML IV.SOLN IVC SCH ×3 (03:30→21:37)
[2021-05-17] MEDS: Artificial Tears SOLN 15 ML BOTTLE BOTH EYES SCH ×6 (03:30→23:42)
[2021-05-17] MEDS: Insulin LISPRO 300 UNITS/3 ML VIAL SUBQ SCH ×5 (03:43→23:42)
[2021-05-17] MEDS: Dexmedetomidine HCl 400 MCG/100 ML MLS IVC SCH ×4 (03:51→17:14)
[2021-05-17] MEDS: Ipratropium 1 PUFF INHALER IH SCH ×6 (04:27→23:28)
[2021-05-17] MEDS: *HR* Enoxaparin 100 MG/ML SYRINGE SQ SCH (05:15)
[2021-05-17 05:18] LABS: ABG Base Excess -3 mEq/L (-2 to 3); ABG HCO3 21 mEq/L (21-27); ABG Oxygen Saturation 95 % (95-98); ABG PCO2 37 mmHg (35-45); ABG PH 7.38 pH Units (7.32-7.45); ABG PO2 78 mmHg (85-104); ABG TCO2 23 mEq/L (20-26); Blood Gas Modality ASSIST CONTROL; Blood Gas VT 350 cc
[2021-05-17] MEDS ORDERED: levoFLOXacin 750 MG/150 ML 750 MG/150 ML BAG IVPB SCH (09:00)
[2021-05-17] MEDS: Cholecalciferol (D-3) 1,000 UNIT (25MCG) TABLET PO SCH (10:00)
[2021-05-17] MEDS: Dexamethasone Sodium Phos/PF 10 MG/ML VIAL IVP SCH (10:00)
[2021-05-17] MEDS: Chlorhexidine Rinse 15 ML MOUTHWASH MM SCH ×2 (10:03→20:06)
[2021-05-17] MEDS: Norepinephrine 4 MG/254 ML IV.SOLN IVC SCH (11:38)
[2021-05-17] MEDS: Cisatracurium 200 MG in 0.9 % Sodium Chloride 180 ML IVC SCH (11:38)
[2021-05-17] MEDS: *HR* Heparin 5,000 UNIT/ML VIAL SQ SCH ×2 (14:01→20:06)
[2021-05-17 18:38] LABS: Sodium, Urine 23.4 mEq/L
[2021-05-17 18:49] LABS: Calcium 8.3 mg/dL (8.6-10.3); Potassium 4.2 mEq/L (3.5-5.1)
[2021-05-17 19:33] LABS: Amorphous Sediment,Urine Few per hpf (None-Few); Bacteria,Urine Few per hpf (None-Few); Bilirubin,Urine Negative (Negative); Blood,Urine Large (Negative); Clarity,Urine Turbid (Clear); Color,Urine Light-Yellow (Yellow); Glucose,Urine (UA) >=1000 mg/dL (Normal); Hyaline Casts,Urine Moderate per lpf (None Seen); Ketones,Urine Negative (Negative); Leukocyte Esterase,Urine Negative (Negative); Mucus,Urine Few per lpf (None-Few); Nitrite,Urine Negative (Negative); PH,Urine 5.5 pH Units (5.0-8.0); Protein,Urine Trace mg/dL (Neg-Trace); RBC,Urine 50-100 per hpf (0-3); Specific Gravity,Urine 1.021 (1.010-1.025); Squamous Epithelial Cell,Urine Few per hpf (None-Few); Uric Acid Crystals,Urine Present per hpf; Urobilinogen,Urine Normal (Normal)
[2021-05-17] MEDS: Insulin DETEMIR 100 UNIT/ML X5UNITS SUBQ SCH (20:08)
[2021-05-18] MEDS: Dexmedetomidine HCl 400 MCG/100 ML MLS IVC SCH ×4 (00:05→19:57)
[2021-05-18] MEDS: Artificial Tears SOLN 15 ML BOTTLE BOTH EYES SCH ×6 (04:13→23:43)
[2021-05-18] MEDS: Insulin LISPRO 300 UNITS/3 ML VIAL SUBQ SCH ×6 (04:14→19:58)
[2021-05-18] MEDS: Ipratropium 1 PUFF INHALER IH SCH ×5 (04:27→19:48)
[2021-05-18 04:33] LABS: ABG Base Excess -1 mEq/L (-2 to 3); ABG HCO3 24 mEq/L (21-27); ABG Oxygen Saturation 93 % (95-98); ABG PCO2 41 mmHg (35-45); ABG PH 7.38 pH Units (7.32-7.45); ABG PO2 68 mmHg (85-104); ABG TCO2 26 mEq/L (20-26); Blood Gas Modality ASSIST CONTROL; Blood Gas VT 380 cc
[2021-05-18 04:39] LABS: Basophils % 0.3 %; Hematocrit 32.2 % (35.3-44.9); Hemoglobin 10.5 g/dL (11.5-15.4); Immature Granulocytes % 6.5 % (0-4); Lymphocytes # 0.3 K/mcL (0.6-4.6); Lymphocytes % 2.3 %; Mean Corpuscular HGB Conc 32.6 g/dL (31.6-35.5); Mean Corpuscular Hemoglobin 29.5 pg (28.0-33.3); Mean Corpuscular Volume 90.4 fL (83.0-100.0); Mean Platelet Volume 10.5 fL (9.4-12.4); Monocytes # 0.3 K/mcL (0.0-1.3); Monocytes % 2.9 %; Platelet Count 267 K/mcL (140-400); Red Blood Count 3.56 M/mcL (3.82-4.97); Red Cell Distribution Width 13.4 % (11.5-14.5); White Blood Count 11.5 K/mcL (4.3-11.1)
[2021-05-18 04:44] LABS: Neutrophils # 10.1 K/mcL (1.6-8.9)
[2021-05-18 05:02] LABS: Platelet Estimate Normal (Normal)
[2021-05-18 05:03] LABS: Calcium 8.5 mg/dL (8.6-10.3); Magnesium 2.3 mg/dL (1.6-2.6); Phosphorous 3.3 mg/dL (2.7-4.5); Potassium 4.1 mEq/L (3.5-5.1)
[2021-05-18] MEDS: *HR* Heparin 5,000 UNIT/ML VIAL SQ SCH ×3 (05:24→21:35)
[2021-05-18] MEDS: FentaNYL (PF) 1,000 MCG/100 ML IV.SOLN IVC SCH ×3 (05:24→21:34)
[2021-05-18] MEDS: Norepinephrine 4 MG/254 ML IV.SOLN IVC SCH (07:42)
[2021-05-18] MEDS: Cisatracurium 200 MG in 0.9 % Sodium Chloride 180 ML IVC SCH (07:43)
[2021-05-18] MEDS: Dexamethasone Sodium Phos/PF 10 MG/ML VIAL IVP SCH (07:58)
[2021-05-18] MEDS: Chlorhexidine Rinse 15 ML MOUTHWASH MM SCH ×2 (07:58→21:34)
[2021-05-18] MEDS: Cholecalciferol (D-3) 1,000 UNIT (25MCG) TABLET PO SCH (07:58)
[2021-05-18] MEDS ORDERED: Insulin DETEMIR 100 UNIT/ML X5UNITS SUBQ ONE (13:00)
[2021-05-18] MEDS ORDERED: Bisacodyl 10 MG RECTAL SUPPOSITORY RC PRN (15:40)
[2021-05-18] MEDS: Docusate Oral Soln 100 MG/10 ML UDC GTUBE SCH (21:34)
[2021-05-18] MEDS: Insulin DETEMIR 100 UNIT/ML X5UNITS SUBQ SCH (21:35)
[2021-05-19] MEDS: Ipratropium 1 PUFF INHALER IH SCH ×6 (00:08→20:11)
[2021-05-19] MEDS: Dexmedetomidine HCl 400 MCG/100 ML MLS IVC SCH ×3 (03:29→18:36)
[2021-05-19] MEDS: Artificial Tears SOLN 15 ML BOTTLE BOTH EYES SCH ×6 (03:31→23:16)
[2021-05-19] MEDS: Norepinephrine 4 MG/254 ML IV.SOLN IVC SCH (03:31)
[2021-05-19] MEDS: Cisatracurium 200 MG in 0.9 % Sodium Chloride 180 ML IVC SCH (03:32)
[2021-05-19] MEDS: FentaNYL (PF) 1,000 MCG/100 ML IV.SOLN IVC SCH ×3 (04:15→18:38)
[2021-05-19] MEDS: Insulin LISPRO 300 UNITS/3 ML VIAL SUBQ SCH ×7 (04:20→23:30)
[2021-05-19 04:36] LABS: VBG Ionized Calcium 1.25 mmol/L (1.15-1.35)
[2021-05-19 04:53] LABS: Hematocrit 33.9 % (35.3-44.9); Hemoglobin 11.1 g/dL (11.5-15.4); Mean Corpuscular HGB Conc 32.7 g/dL (31.6-35.5); Mean Corpuscular Hemoglobin 29.6 pg (28.0-33.3); Mean Corpuscular Volume 90.4 fL (83.0-100.0); Mean Platelet Volume 10.6 fL (9.4-12.4); Platelet Count 286 K/mcL (140-400); Red Blood Count 3.75 M/mcL (3.82-4.97); Red Cell Distribution Width 13.4 % (11.5-14.5); White Blood Count 14.3 K/mcL (4.3-11.1)
[2021-05-19 04:53] LABS: ABG Base Excess 1 mEq/L (-2 to 3); ABG HCO3 26 mEq/L (21-27); ABG Oxygen Saturation 87 % (95-98); ABG PCO2 45 mmHg (35-45); ABG PH 7.37 pH Units (7.32-7.45); ABG PO2 55 mmHg (85-104); ABG TCO2 28 mEq/L (20-26); Blood Gas Modality ASSIST CONTROL; Blood Gas VT 350 cc
[2021-05-19] MEDS: *HR* Heparin 5,000 UNIT/ML VIAL SQ SCH ×3 (05:03→21:06)
[2021-05-19 05:06] LABS: Alanine Aminotransferase 13 Units/L (7-52); Albumin 2.8 g/dL (3.5-5.7); Albumin/Globulin Ratio 0.8 (1.1-2.2); Alkaline Phosphatase 96 Units/L (34-104); Aspartate Amino Transferase 23 Units/L (13-39); BUN/Creatinine Ratio 62 (6-26); Bilirubin,Total 0.5 mg/dL (0.3-1.0); Blood Urea Nitrogen 69 mg/dL (8-23); Calcium 8.7 mg/dL (8.6-10.3); Carbon Dioxide 26 mEq/L (23-29); Chloride 102 mEq/L (98-107); Globulin 3.6 g/dL (2.4-3.5); Glucose 349 mg/dL (70-105); Magnesium 2.2 mg/dL (1.6-2.6); Osmolality,Calculated 318 (280-300); Phosphorous 2.7 mg/dL (2.7-4.5); Potassium 4.2 mEq/L (3.5-5.1); Sodium 137 mEq/L (136-145); Total Protein 6.4 g/dL (6.4-8.9); eGFR For African Americans > 60 (> 60); eGFR For Non-African Americans 50 (> 60)
[2021-05-19 05:44] LABS: Lymphocytes # 0.3 K/mcL (0.6-4.6); Monocytes # 0.3 K/mcL (0.0-1.3); Neutrophils # 13.4 K/mcL (1.6-8.9); Platelet Estimate Normal (Normal)
[2021-05-19] MEDS: Dexamethasone Sodium Phos/PF 10 MG/ML VIAL IVP SCH (07:49)
[2021-05-19] MEDS: Docusate Oral Soln 100 MG/10 ML UDC GTUBE SCH ×2 (07:50→21:07)
[2021-05-19] MEDS: Cholecalciferol (D-3) 1,000 UNIT (25MCG) TABLET PO SCH (07:50)
[2021-05-19] MEDS: Chlorhexidine Rinse 15 ML MOUTHWASH MM SCH ×2 (07:50→21:07)
[2021-05-19] MEDS: Insulin DETEMIR 100 UNIT/ML X5UNITS SUBQ SCH ×2 (07:51→21:06)
[2021-05-19] MEDS ORDERED: levoFLOXacin 750 MG/150 ML 750 MG/150 ML BAG IVPB SCH (09:00)
[2021-05-19] MEDS ORDERED: Insulin DETEMIR 100 UNIT/ML X5UNITS SUBQ ONE (10:24)
[2021-05-19] MEDS ORDERED: Furosemide 40 MG/4 ML VIAL IVP ONE (10:25)
[2021-05-19] MEDS ORDERED: Pantoprazole 40 MG VIAL IVP ONE (13:22)
[2021-05-19] MEDS ORDERED: Famotidine 20 MG/2 ML VIAL IVP ONE (13:23)
[2021-05-20] MEDS: Ipratropium 1 PUFF INHALER IH SCH ×7 (00:32→23:20)
[2021-05-20] MEDS: Dexmedetomidine HCl 400 MCG/100 ML MLS IVC SCH ×4 (01:04→23:18)
[2021-05-20] MEDS: FentaNYL (PF) 1,000 MCG/100 ML IV.SOLN IVC SCH ×3 (02:20→17:45)
[2021-05-20] MEDS: Artificial Tears SOLN 15 ML BOTTLE BOTH EYES SCH ×6 (03:09→23:32)
[2021-05-20] MEDS: Insulin LISPRO 300 UNITS/3 ML VIAL SUBQ SCH ×6 (03:28→23:38)
[2021-05-20] MEDS: Cisatracurium 200 MG in 0.9 % Sodium Chloride 180 ML IVC SCH (03:29)
[2021-05-20] MEDS: Norepinephrine 4 MG/254 ML IV.SOLN IVC SCH (03:29)
[2021-05-20 03:39] LABS: Basophils % 0.2 %; Eosinophils # 0.1 K/mcL (0.0-0.6); Eosinophils % 0.5 %; Hematocrit 33.8 % (35.3-44.9); Hemoglobin 11.3 g/dL (11.5-15.4); Immature Granulocytes % 3.8 % (0-4); Lymphocytes # 0.9 K/mcL (0.6-4.6); Lymphocytes % 4.7 %; Mean Corpuscular HGB Conc 33.4 g/dL (31.6-35.5); Mean Corpuscular Hemoglobin 30.3 pg (28.0-33.3); Mean Corpuscular Volume 90.6 fL (83.0-100.0); Mean Platelet Volume 10.6 fL (9.4-12.4); Monocytes # 0.7 K/mcL (0.0-1.3); Monocytes % 3.4 %; Neutrophils # 17.4 K/mcL (1.6-8.9); Platelet Count 258 K/mcL (140-400); Red Blood Count 3.73 M/mcL (3.82-4.97); Red Cell Distribution Width 13.3 % (11.5-14.5); Segmented Neutrophils % 87.4 %; White Blood Count 19.9 K/mcL (4.3-11.1)
[2021-05-20 03:41] LABS: VBG Ionized Calcium 1.18 mmol/L (1.15-1.35)
[2021-05-20 03:56] LABS: Albumin 2.8 g/dL (3.5-5.7); Albumin/Globulin Ratio 0.8 (1.1-2.2); Bilirubin,Total 0.5 mg/dL (0.3-1.0); Calcium 8.7 mg/dL (8.6-10.3); Globulin 3.5 g/dL (2.4-3.5); Magnesium 2.2 mg/dL (1.6-2.6); Phosphorous 3.1 mg/dL (2.7-4.5); Total Protein 6.3 g/dL (6.4-8.9)
[2021-05-20 04:45] LABS: ABG Base Excess 2 mEq/L (-2 to 3); ABG HCO3 29 mEq/L (21-27); ABG Oxygen Saturation 88 % (95-98); ABG PCO2 56 mmHg (35-45); ABG PH 7.32 pH Units (7.32-7.45); ABG PO2 61 mmHg (85-104); ABG TCO2 31 mEq/L (20-26); Blood Gas Modality ASSIST CONTROL; Blood Gas VT 350 cc
[2021-05-20] MEDS: *HR* Heparin 5,000 UNIT/ML VIAL SQ SCH ×3 (05:42→20:11)
[2021-05-20] MEDS: Chlorhexidine Rinse 15 ML MOUTHWASH MM SCH ×2 (07:41→20:11)
[2021-05-20] MEDS: Pantoprazole 40 MG VIAL IVP SCH (07:42)
[2021-05-20] MEDS: Dexamethasone Sodium Phos/PF 10 MG/ML VIAL IVP SCH (07:42)
[2021-05-20] MEDS: Docusate Oral Soln 100 MG/10 ML UDC GTUBE SCH ×2 (07:42→20:11)
[2021-05-20] MEDS: Cholecalciferol (D-3) 1,000 UNIT (25MCG) TABLET PO SCH (07:43)
[2021-05-20] MEDS: Insulin DETEMIR 100 UNIT/ML X5UNITS SUBQ SCH ×2 (07:44→20:17)
[2021-05-20] MEDS ORDERED: levoFLOXacin 750 MG/150 ML 750 MG/150 ML BAG IVPB SCH (09:00)
[2021-05-21] MEDS: FentaNYL (PF) 2,500 MCG/50 ML IV.SOLN IVC SCH ×3 (01:54→22:29)
[2021-05-21] MEDS: Ipratropium 1 PUFF INHALER IH SCH ×6 (03:25→23:29)
[2021-05-21] MEDS: Artificial Tears SOLN 15 ML BOTTLE BOTH EYES SCH ×6 (03:34→23:43)
[2021-05-21] MEDS: Insulin LISPRO 300 UNITS/3 ML VIAL SUBQ SCH ×6 (03:41→23:44)
[2021-05-21] MEDS: Cisatracurium 200 MG in 0.9 % Sodium Chloride 180 ML IVC SCH (03:42)
[2021-05-21] MEDS: Norepinephrine 4 MG/254 ML IV.SOLN IVC SCH (03:42)
[2021-05-21] MEDS: Dexmedetomidine HCl 400 MCG/100 ML MLS IVC SCH ×4 (03:48→23:42)
[2021-05-21 04:22] LABS: VBG Ionized Calcium 1.17 mmol/L (1.15-1.35)
[2021-05-21 04:34] LABS: Basophils % 0.2 %; Eosinophils # 0.2 K/mcL (0.0-0.6); Eosinophils % 0.8 %; Hematocrit 31.5 % (35.3-44.9); Hemoglobin 10.5 g/dL (11.5-15.4); Lymphocytes # 0.9 K/mcL (0.6-4.6); Lymphocytes % 4.9 %; Mean Corpuscular HGB Conc 33.3 g/dL (31.6-35.5); Mean Corpuscular Hemoglobin 29.7 pg (28.0-33.3); Mean Corpuscular Volume 89.2 fL (83.0-100.0); Mean Platelet Volume 10.8 fL (9.4-12.4); Monocytes # 0.4 K/mcL (0.0-1.3); Monocytes % 2.2 %; Neutrophils # 15.5 K/mcL (1.6-8.9); Platelet Count 210 K/mcL (140-400); Red Blood Count 3.53 M/mcL (3.82-4.97); Red Cell Distribution Width 13.5 % (11.5-14.5); Segmented Neutrophils % 87.9 %; White Blood Count 17.7 K/mcL (4.3-11.1)
[2021-05-21 04:43] LABS: ABG Base Excess 2 mEq/L (-2 to 3); ABG HCO3 27 mEq/L (21-27); ABG Oxygen Saturation 89 % (95-98); ABG PCO2 42 mmHg (35-45); ABG PH 7.41 pH Units (7.32-7.45); ABG PO2 57 mmHg (85-104); ABG TCO2 28 mEq/L (20-26); Blood Gas Modality AF; Blood Gas VT 350 cc
[2021-05-21 04:51] LABS: Alanine Aminotransferase 17 Units/L (7-52); Albumin 2.6 g/dL (3.5-5.7); Albumin/Globulin Ratio 0.7 (1.1-2.2); Alkaline Phosphatase 95 Units/L (34-104); Aspartate Amino Transferase 26 Units/L (13-39); BUN/Creatinine Ratio 86 (6-26); Bilirubin,Total 0.6 mg/dL (0.3-1.0); Blood Urea Nitrogen 89 mg/dL (8-23); Calcium 8.6 mg/dL (8.6-10.3); Carbon Dioxide 27 mEq/L (23-29); Chloride 103 mEq/L (98-107); Globulin 3.5 g/dL (2.4-3.5); Glucose 113 mg/dL (70-105); Magnesium 2.2 mg/dL (1.6-2.6); Osmolality,Calculated 316 (280-300); Phosphorous 4.3 mg/dL (2.7-4.5); Sodium 139 mEq/L (136-145); Total Protein 6.1 g/dL (6.4-8.9); eGFR For African Americans > 60 (> 60); eGFR For Non-African Americans 54 (> 60)
[2021-05-21] MEDS: *HR* Heparin 5,000 UNIT/ML VIAL SQ SCH ×3 (05:10→20:34)
[2021-05-21] MEDS: Chlorhexidine Rinse 15 ML MOUTHWASH MM SCH ×2 (08:43→20:34)
[2021-05-21] MEDS: Docusate Oral Soln 100 MG/10 ML UDC GTUBE SCH ×2 (08:43→20:34)
[2021-05-21] MEDS: Dexamethasone Sodium Phos/PF 10 MG/ML VIAL IVP SCH (08:43)
[2021-05-21] MEDS: Cholecalciferol (D-3) 1,000 UNIT (25MCG) TABLET PO SCH (08:44)
[2021-05-21] MEDS: Pantoprazole 40 MG VIAL IVP SCH (08:44)
[2021-05-21] MEDS: Insulin DETEMIR 100 UNIT/ML X5UNITS SUBQ SCH ×2 (08:46→20:37)
[2021-05-22 03:43] LABS: Basophils % 0.2 %; Eosinophils # 0.1 K/mcL (0.0-0.6); Eosinophils % 0.4 %; Hematocrit 30.7 % (35.3-44.9); Hemoglobin 10.2 g/dL (11.5-15.4); Immature Granulocytes % 4.2 % (0-4); Lymphocytes # 0.5 K/mcL (0.6-4.6); Lymphocytes % 2.4 %; Mean Corpuscular HGB Conc 33.2 g/dL (31.6-35.5); Mean Corpuscular Hemoglobin 30.4 pg (28.0-33.3); Mean Corpuscular Volume 91.4 fL (83.0-100.0); Mean Platelet Volume 10.9 fL (9.4-12.4); Monocytes # 0.4 K/mcL (0.0-1.3); Monocytes % 1.9 %; Neutrophils # 17.4 K/mcL (1.6-8.9); Platelet Count 220 K/mcL (140-400); Red Blood Count 3.36 M/mcL (3.82-4.97); Red Cell Distribution Width 13.4 % (11.5-14.5); Segmented Neutrophils % 90.9 %; White Blood Count 19.1 K/mcL (4.3-11.1)
[2021-05-22] MEDS: Insulin LISPRO 300 UNITS/3 ML VIAL SUBQ SCH ×6 (03:43→23:20)
[2021-05-22] MEDS: Artificial Tears SOLN 15 ML BOTTLE BOTH EYES SCH ×6 (03:43→23:09)
[2021-05-22 03:46] LABS: VBG Ionized Calcium 1.21 mmol/L (1.15-1.35)
[2021-05-22] MEDS: Ipratropium 1 PUFF INHALER IH SCH ×6 (03:47→23:52)
[2021-05-22 04:02] LABS: Alanine Aminotransferase 13 Units/L (7-52); Albumin 2.6 g/dL (3.5-5.7); Albumin/Globulin Ratio 0.7 (1.1-2.2); Alkaline Phosphatase 101 Units/L (34-104); Aspartate Amino Transferase 23 Units/L (13-39); BUN/Creatinine Ratio 91 (6-26); Bilirubin,Total 0.5 mg/dL (0.3-1.0); Blood Urea Nitrogen 88 mg/dL (8-23); Calcium 8.7 mg/dL (8.6-10.3); Carbon Dioxide 26 mEq/L (23-29); Chloride 102 mEq/L (98-107); Globulin 3.5 g/dL (2.4-3.5); Glucose 255 mg/dL (70-105); Magnesium 2.5 mg/dL (1.6-2.6); Osmolality,Calculated 318 (280-300); Phosphorous 4.7 mg/dL (2.7-4.5); Potassium 4.2 mEq/L (3.5-5.1); Sodium 136 mEq/L (136-145); Total Protein 6.1 g/dL (6.4-8.9); eGFR For African Americans > 60 (> 60); eGFR For Non-African Americans 59 (> 60)
[2021-05-22 04:23] LABS: ABG Base Excess -1 mEq/L (-2 to 3); ABG HCO3 26 mEq/L (21-27); ABG Oxygen Saturation 90 % (95-98); ABG PCO2 52 mmHg (35-45); ABG PH 7.31 pH Units (7.32-7.45); ABG PO2 65 mmHg (85-104); ABG TCO2 28 mEq/L (20-26); Blood Gas VT 350 cc
[2021-05-22] MEDS: Norepinephrine 4 MG/254 ML IV.SOLN IVC SCH (04:23)
[2021-05-22] MEDS: Cisatracurium 200 MG in 0.9 % Sodium Chloride 180 ML IVC SCH (04:23)
[2021-05-22] MEDS: *HR* Heparin 5,000 UNIT/ML VIAL SQ SCH ×3 (05:21→23:08)
[2021-05-22] MEDS: Dexmedetomidine HCl 400 MCG/100 ML MLS IVC SCH ×3 (06:44→18:26)
[2021-05-22] MEDS: Chlorhexidine Rinse 15 ML MOUTHWASH MM SCH ×2 (07:14→19:51)
[2021-05-22] MEDS: Cholecalciferol (D-3) 1,000 UNIT (25MCG) TABLET PO SCH (07:14)
[2021-05-22] MEDS: Pantoprazole 40 MG VIAL IVP SCH (07:15)
[2021-05-22] MEDS: Dexamethasone Sodium Phos/PF 10 MG/ML VIAL IVP SCH (07:15)
[2021-05-22] MEDS: Docusate Oral Soln 100 MG/10 ML UDC GTUBE SCH ×2 (07:15→19:51)
[2021-05-22] MEDS: Insulin DETEMIR 100 UNIT/ML X5UNITS SUBQ SCH ×2 (07:18→19:58)
[2021-05-22] MEDS ORDERED: Furosemide 40 MG/4 ML VIAL IVP ONE (07:38)
[2021-05-22] MEDS: FentaNYL (PF) 2,500 MCG/50 ML IV.SOLN IVC SCH (12:09)
[2021-05-22] MEDS ORDERED: Insulin DETEMIR 100 UNIT/ML X5UNITS SUBQ ONE (14:39)
[2021-05-22] MEDS ORDERED: Furosemide 240 MG in 0.9 % Sodium Chloride 96 ML IVC SCH (20:00)
[2021-05-23] MEDS: Dexmedetomidine HCl 400 MCG/100 ML MLS IVC SCH ×3 (00:46→23:24)
[2021-05-23] MEDS: FentaNYL (PF) 2,500 MCG/50 ML IV.SOLN IVC SCH ×2 (01:04→14:51)
[2021-05-23] MEDS: Norepinephrine 4 MG/254 ML IV.SOLN IVC SCH (03:07)
[2021-05-23 03:51] LABS: Basophils # 0.1 K/mcL (0.0-0.2); Basophils % 0.3 %; Eosinophils # 0.2 K/mcL (0.0-0.6); Eosinophils % 0.9 %; Hematocrit 31.6 % (35.3-44.9); Hemoglobin 10.4 g/dL (11.5-15.4); Immature Granulocytes % 4.3 % (0-4); Lymphocytes # 0.8 K/mcL (0.6-4.6); Mean Corpuscular HGB Conc 32.9 g/dL (31.6-35.5); Mean Corpuscular Hemoglobin 30.1 pg (28.0-33.3); Mean Corpuscular Volume 91.3 fL (83.0-100.0); Monocytes # 0.5 K/mcL (0.0-1.3); Monocytes % 2.4 %; Neutrophils # 18.3 K/mcL (1.6-8.9); Platelet Count 240 K/mcL (140-400); Red Blood Count 3.46 M/mcL (3.82-4.97); Red Cell Distribution Width 13.6 % (11.5-14.5); Segmented Neutrophils % 88.1 %; White Blood Count 20.7 K/mcL (4.3-11.1)
[2021-05-23 03:59] LABS: VBG Ionized Calcium 1.23 mmol/L (1.15-1.35)
[2021-05-23 04:10] LABS: Alanine Aminotransferase 12 Units/L (7-52); Albumin 2.7 g/dL (3.5-5.7); Albumin/Globulin Ratio 0.7 (1.1-2.2); Alkaline Phosphatase 102 Units/L (34-104); Aspartate Amino Transferase 18 Units/L (13-39); BUN/Creatinine Ratio 102 (6-26); Bilirubin,Total 0.4 mg/dL (0.3-1.0); Blood Urea Nitrogen 104 mg/dL (8-23); Calcium 8.9 mg/dL (8.6-10.3); Carbon Dioxide 24 mEq/L (23-29); Chloride 102 mEq/L (98-107); Globulin 3.7 g/dL (2.4-3.5); Glucose 85 mg/dL (70-105); Magnesium 2.5 mg/dL (1.6-2.6); Osmolality,Calculated 318 (280-300); Phosphorous 4.6 mg/dL (2.7-4.5); Sodium 138 mEq/L (136-145); Total Protein 6.4 g/dL (6.4-8.9); eGFR For African Americans > 60 (> 60); eGFR For Non-African Americans 55 (> 60)
[2021-05-23] MEDS: Insulin LISPRO 300 UNITS/3 ML VIAL SUBQ SCH ×6 (04:18→23:16)
[2021-05-23] MEDS: Ipratropium 1 PUFF INHALER IH SCH ×6 (04:20→22:56)
[2021-05-23] MEDS: Artificial Tears SOLN 15 ML BOTTLE BOTH EYES SCH ×6 (04:25→23:16)
[2021-05-23 04:42] LABS: ABG Base Excess 0 mEq/L (-2 to 3); ABG HCO3 26 mEq/L (21-27); ABG Oxygen Saturation 93 % (95-98); ABG PCO2 44 mmHg (35-45); ABG PH 7.38 pH Units (7.32-7.45); ABG PO2 69 mmHg (85-104); ABG TCO2 27 mEq/L (20-26); Blood Gas VT 350 cc
[2021-05-23] MEDS: Cisatracurium 200 MG in 0.9 % Sodium Chloride 180 ML IVC SCH (05:04)
[2021-05-23] MEDS: *HR* Heparin 5,000 UNIT/ML VIAL SQ SCH ×3 (05:11→23:24)
[2021-05-23] MEDS ORDERED: Furosemide 240 MG in 0.9 % Sodium Chloride 96 ML IVC SCH (07:32)
[2021-05-23] MEDS: Pantoprazole 40 MG VIAL IVP SCH (07:43)
[2021-05-23] MEDS: Dexamethasone Sodium Phos/PF 10 MG/ML VIAL IVP SCH (07:44)
[2021-05-23] MEDS: Cholecalciferol (D-3) 1,000 UNIT (25MCG) TABLET PO SCH (07:44)
[2021-05-23] MEDS: Docusate Oral Soln 100 MG/10 ML UDC GTUBE SCH ×2 (07:44→19:17)
[2021-05-23] MEDS: Chlorhexidine Rinse 15 ML MOUTHWASH MM SCH ×2 (07:44→19:16)
[2021-05-23] MEDS ORDERED: Albumin 25% 12.5gm/50mL 12.5 GM/50 ML IV.SOLN IVPB SCH (08:00)
[2021-05-23] MEDS: Insulin DETEMIR 100 UNIT/ML X5UNITS SUBQ SCH ×2 (08:33→20:27)
[2021-05-23] MEDS ORDERED: *HR* LORazepam 2 MG/ML VIAL IVP PRN (12:05)
[2021-05-23] MEDS ORDERED: Albumin 25% 25gram/100mL 25 GM/100 ML IV.SOLN ONE (17:13)
[2021-05-23] MEDS: Albumin 25% 12.5gm/50mL 12.5 GM/50 ML IV.SOLN IVPB SCH ×2 (17:44→19:17)
[2021-05-24] MEDS: Artificial Tears SOLN 15 ML BOTTLE BOTH EYES SCH ×6 (03:30→23:52)
[2021-05-24] MEDS: Norepinephrine 4 MG/254 ML IV.SOLN IVC SCH ×2 (03:31→17:32)
[2021-05-24] MEDS: Cisatracurium 200 MG in 0.9 % Sodium Chloride 180 ML IVC SCH (03:31)
[2021-05-24] MEDS: Insulin LISPRO 300 UNITS/3 ML VIAL SUBQ SCH ×5 (03:31→19:48)
[2021-05-24] MEDS: FentaNYL (PF) 2,500 MCG/50 ML IV.SOLN IVC SCH ×2 (04:00→12:16)
[2021-05-24 04:10] LABS: VBG Ionized Calcium 1.11 mmol/L (1.15-1.35)
[2021-05-24 04:10] LABS: Basophils % 0.2 %; Eosinophils # 0.2 K/mcL (0.0-0.6); Eosinophils % 1.4 %; Hematocrit 27.9 % (35.3-44.9); Hemoglobin 8.9 g/dL (11.5-15.4); Immature Granulocytes % 2.9 % (0-4); Lymphocytes # 0.8 K/mcL (0.6-4.6); Mean Corpuscular HGB Conc 31.9 g/dL (31.6-35.5); Mean Corpuscular Hemoglobin 29.3 pg (28.0-33.3); Mean Corpuscular Volume 91.8 fL (83.0-100.0); Mean Platelet Volume 11.2 fL (9.4-12.4); Monocytes # 0.6 K/mcL (0.0-1.3); Monocytes % 3.4 %; Neutrophils # 14.6 K/mcL (1.6-8.9); Platelet Count 201 K/mcL (140-400); Red Blood Count 3.04 M/mcL (3.82-4.97); Red Cell Distribution Width 13.8 % (11.5-14.5); Segmented Neutrophils % 87.1 %; White Blood Count 16.8 K/mcL (4.3-11.1)
[2021-05-24 04:30] LABS: Alanine Aminotransferase 17 Units/L (7-52); Albumin/Globulin Ratio 0.9 (1.1-2.2); Alkaline Phosphatase 97 Units/L (34-104); Aspartate Amino Transferase 25 Units/L (13-39); Bilirubin,Total 0.6 mg/dL (0.3-1.0); Blood Urea Nitrogen > 130 mg/dL (8-23); Calcium 8.7 mg/dL (8.6-10.3); Carbon Dioxide 24 mEq/L (23-29); Chloride 98 mEq/L (98-107); Globulin 3.5 g/dL (2.4-3.5); Glucose 128 mg/dL (70-105); Magnesium 2.4 mg/dL (1.6-2.6); Phosphorous 7.2 mg/dL (2.7-4.5); Potassium 4.1 mEq/L (3.5-5.1); Sodium 136 mEq/L (136-145); Total Protein 6.5 g/dL (6.4-8.9); eGFR For African Americans 49 (> 60); eGFR For Non-African Americans 41 (> 60)
[2021-05-24] MEDS: Ipratropium 1 PUFF INHALER IH SCH ×6 (04:44→23:03)
[2021-05-24 05:20] LABS: ABG Base Excess 0 mEq/L (-2 to 3); ABG HCO3 26 mEq/L (21-27); ABG Oxygen Saturation 92 % (95-98); ABG PCO2 45 mmHg (35-45); ABG PH 7.37 pH Units (7.32-7.45); ABG PO2 67 mmHg (85-104); ABG TCO2 27 mEq/L (20-26); Blood Gas VT 350 cc
[2021-05-24] MEDS: *HR* Heparin 5,000 UNIT/ML VIAL SQ SCH ×3 (05:20→23:52)
[2021-05-24] MEDS: Chlorhexidine Rinse 15 ML MOUTHWASH MM SCH ×2 (08:13→19:50)
[2021-05-24] MEDS: Cholecalciferol (D-3) 1,000 UNIT (25MCG) TABLET PO SCH (08:14)
[2021-05-24] MEDS: Docusate Oral Soln 100 MG/10 ML UDC GTUBE SCH ×2 (08:14→19:30)
[2021-05-24] MEDS: Dexamethasone Sodium Phos/PF 10 MG/ML VIAL IVP SCH (08:15)
[2021-05-24] MEDS: Pantoprazole 40 MG VIAL IVP SCH (08:15)
[2021-05-24] MEDS: Insulin DETEMIR 100 UNIT/ML X5UNITS SUBQ SCH ×2 (08:17→19:53)
[2021-05-24] MEDS ORDERED: Furosemide 40 MG/4 ML VIAL IVP ONE (09:01)
[2021-05-24] MEDS ORDERED: Albumin 25% 25gram/100mL 25 GM/100 ML IV.SOLN IVPB ONE (09:01)
[2021-05-24] MEDS ORDERED: Furosemide 100 MG in 0.9 % Sodium Chloride 50 ML IVPB ONE (09:15)
[2021-05-24] MEDS: Cefepime HCl 2,000 MG in 0.9 % Sodium Chloride Mini Bag 100 ML IVPB SCH ×2 (09:52→23:52)
[2021-05-24] MEDS: Dexmedetomidine HCl 400 MCG/100 ML MLS IVC SCH ×2 (09:55→17:33)
[2021-05-24 11:23] LABS: Hemoglobin 9.1 g/dL (11.5-15.4)
[2021-05-24] MEDS ORDERED: 0.9 % Sodium Chloride 1,000 ML ONE (12:59)
[2021-05-24] MEDS ORDERED: *HR* Heparin 5,000 UNIT/ML VIAL ONE (13:51)
[2021-05-24] MEDS ORDERED: *HR* Heparin 10,000 UNIT/10 ML VIAL IV PRN (15:42)
[2021-05-24] MEDS ORDERED: 0.9 % Sodium Chloride 250 ML IVC PRN (15:42)
[2021-05-24] MEDS ORDERED: 0.9 % Sodium Chloride 1,000 ML PRIME SCH (15:45)
[2021-05-24 20:59] LABS: Hepatitis B Surface Antibody > 850.00 mIU/mL
[2021-05-24 21:10] LABS: Hepatitis B Surface Antigen Nonreactive (Nonreactive)
[2021-05-25] MEDS: FentaNYL (PF) 2,500 MCG/50 ML IV.SOLN IVC SCH ×3 (00:12→22:06)
[2021-05-25] MEDS: Insulin LISPRO 300 UNITS/3 ML VIAL SUBQ SCH ×7 (00:12→23:44)
[2021-05-25 01:45] LABS: Bacteria,Urine Few per hpf (None-Few); Bilirubin,Urine Negative (Negative); Blood,Urine Small (Negative); Clarity,Urine Clear (Clear); Color,Urine Yellow (Yellow); Glucose,Urine (UA) Normal (Normal); Hyaline Casts,Urine Moderate per lpf (None Seen); Ketones,Urine Negative (Negative); Leukocyte Esterase,Urine Negative (Negative); Nitrite,Urine Negative (Negative); PH,Urine 5.5 pH Units (5.0-8.0); Protein,Urine Trace mg/dL (Neg-Trace); RBC,Urine 50-100 per hpf (0-3); Specific Gravity,Urine 1.019 (1.010-1.025); Squamous Epithelial Cell,Urine Few per hpf (None-Few); Urobilinogen,Urine Normal (Normal); WBC,Urine 0-3 per hpf (0-3)
[2021-05-25] MEDS: Dexmedetomidine HCl 400 MCG/100 ML MLS IVC SCH ×4 (01:55→22:46)
[2021-05-25] MEDS: Artificial Tears SOLN 15 ML BOTTLE BOTH EYES SCH ×6 (03:59→23:31)
[2021-05-25] MEDS: Ipratropium 1 PUFF INHALER IH SCH ×6 (03:59→23:40)
[2021-05-25 04:12] LABS: Nucleated Red Blood Cells 0.1 /100 WBC (0)
[2021-05-25 04:13] LABS: Hemoglobin 9.8 g/dL (11.5-15.4); Mean Corpuscular HGB Conc 33.8 g/dL (31.6-35.5); Mean Corpuscular Hemoglobin 30.7 pg (28.0-33.3); Mean Corpuscular Volume 90.9 fL (83.0-100.0); Mean Platelet Volume 10.8 fL (9.4-12.4); Platelet Count 281 K/mcL (140-400); Red Blood Count 3.19 M/mcL (3.82-4.97); White Blood Count 27.3 K/mcL (4.3-11.1)
[2021-05-25 04:32] LABS: Albumin 3.4 g/dL (3.5-5.7); Albumin/Globulin Ratio 0.9 (1.1-2.2); Bilirubin,Total 0.7 mg/dL (0.3-1.0); Calcium 8.7 mg/dL (8.6-10.3); Globulin 3.6 g/dL (2.4-3.5); Magnesium 2.1 mg/dL (1.6-2.6); Phosphorous 6.9 mg/dL (2.7-4.5); Potassium 3.7 mEq/L (3.5-5.1)
[2021-05-25 05:00] LABS: Lymphocytes # 0.6 K/mcL (0.6-4.6); Neutrophils # 25.7 K/mcL (1.6-8.9)
[2021-05-25 05:01] LABS: Platelet Estimate Normal (Normal)
[2021-05-25] MEDS: Cisatracurium 200 MG in 0.9 % Sodium Chloride 180 ML IVC SCH (05:09)
[2021-05-25 05:16] LABS: ABG Base Excess -3 mEq/L (-2 to 3); ABG HCO3 22 mEq/L (21-27); ABG Oxygen Saturation 93 % (95-98); ABG PCO2 38 mmHg (35-45); ABG PH 7.37 pH Units (7.32-7.45); ABG PO2 68 mmHg (85-104); ABG TCO2 23 mEq/L (20-26)
[2021-05-25] MEDS: *HR* Heparin 5,000 UNIT/ML VIAL SQ SCH ×3 (05:52→23:31)
[2021-05-25] MEDS: Cholecalciferol (D-3) 1,000 UNIT (25MCG) TABLET PO SCH (08:24)
[2021-05-25] MEDS: Chlorhexidine Rinse 15 ML MOUTHWASH MM SCH ×2 (08:24→19:20)
[2021-05-25] MEDS: Dexamethasone Sodium Phos/PF 10 MG/ML VIAL IVP SCH (08:25)
[2021-05-25] MEDS: Insulin DETEMIR 100 UNIT/ML X5UNITS SUBQ SCH ×2 (08:25→21:41)
[2021-05-25] MEDS: Pantoprazole 40 MG VIAL IVP SCH (08:29)
[2021-05-25] MEDS: Docusate Oral Soln 100 MG/10 ML UDC GTUBE SCH ×2 (08:29→19:15)
[2021-05-25] MEDS: Cefepime HCl 2,000 MG in 0.9 % Sodium Chloride Mini Bag 100 ML IVPB SCH ×2 (08:30→23:31)
[2021-05-25] MEDS ORDERED: 0.9 % Sodium Chloride 250 ML IVC PRN (08:40)
[2021-05-25] MEDS ORDERED: *HR* Heparin 10,000 UNIT/10 ML VIAL IV PRN (08:40)
[2021-05-25] MEDS ORDERED: Vancomycin 1,250 MG/262.5 ML IV.SOLN IVPB ONE (10:22)
[2021-05-25] MEDS: Midazolam HCl 50 MG/100 ML IV.SOLN IVC SCH (12:31)
[2021-05-25] MEDS: Norepinephrine 4 MG/254 ML IV.SOLN IVC SCH (23:31)
[2021-05-26] MEDS: Ipratropium 1 PUFF INHALER IH SCH ×5 (03:45→20:21)
[2021-05-26 03:48] LABS: Hematocrit 27.5 % (35.3-44.9); Hemoglobin 9.3 g/dL (11.5-15.4); Mean Corpuscular HGB Conc 33.8 g/dL (31.6-35.5); Mean Corpuscular Hemoglobin 30.6 pg (28.0-33.3); Mean Corpuscular Volume 90.5 fL (83.0-100.0); Mean Platelet Volume 10.5 fL (9.4-12.4); Nucleated Red Blood Cells 0.1 /100 WBC (0); Platelet Count 247 K/mcL (140-400); Red Blood Count 3.04 M/mcL (3.82-4.97); Red Cell Distribution Width 14.3 % (11.5-14.5); White Blood Count 27.3 K/mcL (4.3-11.1)
[2021-05-26 04:07] LABS: Alanine Aminotransferase 22 Units/L (7-52); Albumin 2.8 g/dL (3.5-5.7); Albumin/Globulin Ratio 0.9 (1.1-2.2); Alkaline Phosphatase 101 Units/L (34-104); Aspartate Amino Transferase 36 Units/L (13-39); BUN/Creatinine Ratio 65 (6-26); Bilirubin,Total 0.8 mg/dL (0.3-1.0); Blood Urea Nitrogen 69 mg/dL (8-23); Calcium 8.4 mg/dL (8.6-10.3); Carbon Dioxide 24 mEq/L (23-29); Chloride 99 mEq/L (98-107); Globulin 3.1 g/dL (2.4-3.5); Glucose 63 mg/dL (70-105); Osmolality,Calculated 298 (280-300); Phosphorous 5.7 mg/dL (2.7-4.5); Potassium 3.3 mEq/L (3.5-5.1); Sodium 135 mEq/L (136-145); Total Protein 5.9 g/dL (6.4-8.9); eGFR For African Americans > 60 (> 60); eGFR For Non-African Americans 53 (> 60)
[2021-05-26] MEDS: Artificial Tears SOLN 15 ML BOTTLE BOTH EYES SCH ×5 (04:15→21:08)
[2021-05-26] MEDS: Insulin LISPRO 300 UNITS/3 ML VIAL SUBQ SCH ×5 (04:18→21:09)
[2021-05-26 04:21] LABS: ABG Base Excess -8 mEq/L (-2 to 3); ABG HCO3 17 mEq/L (21-27); ABG Oxygen Saturation 96 % (95-98); ABG PCO2 30 mmHg (35-45); ABG PH 7.35 pH Units (7.32-7.45); ABG PO2 81 mmHg (85-104); ABG TCO2 17 mEq/L (20-26); Blood Gas Modality ASSIST CONTROL; Blood Gas VT 350 cc
[2021-05-26 04:37] LABS: Lymphocytes # 1.6 K/mcL (0.6-4.6)
[2021-05-26 04:38] LABS: Eosinophils # 0.6 K/mcL (0.0-0.6); Monocytes # 0.6 K/mcL (0.0-1.3); Neutrophils # 24.6 K/mcL (1.6-8.9); Platelet Estimate Normal (Normal)
[2021-05-26 04:39] LABS: Basophilic Stippling 1+ (Not Present)
[2021-05-26] MEDS ORDERED: Potassium Chloride 40 MEQ/200 ML BAG IVPB PRN (05:00)
[2021-05-26] MEDS ORDERED: Potassium Chloride Elixir 20 MEQ/15 ML UDC GTUBE ONE (05:10)
[2021-05-26] MEDS: *HR* Heparin 5,000 UNIT/ML VIAL SQ SCH ×3 (05:16→21:11)
[2021-05-26] MEDS: Norepinephrine 4 MG/254 ML IV.SOLN IVC SCH ×3 (08:07→23:00)
[2021-05-26] MEDS: Cholecalciferol (D-3) 1,000 UNIT (25MCG) TABLET PO SCH (08:09)
[2021-05-26] MEDS: Docusate Oral Soln 100 MG/10 ML UDC GTUBE SCH ×2 (08:09→21:07)
[2021-05-26] MEDS: Chlorhexidine Rinse 15 ML MOUTHWASH MM SCH ×2 (08:09→21:07)
[2021-05-26] MEDS: Cefepime HCl 2,000 MG in 0.9 % Sodium Chloride Mini Bag 100 ML IVPB SCH (08:09)
[2021-05-26] MEDS: Dexmedetomidine HCl 400 MCG/100 ML MLS IVC SCH ×3 (08:10→19:03)
[2021-05-26] MEDS: Pantoprazole 40 MG VIAL IVP SCH (08:10)
[2021-05-26] MEDS: FentaNYL (PF) 2,500 MCG/50 ML IV.SOLN IVC SCH ×2 (09:08→22:48)
[2021-05-26] MEDS: Cisatracurium 200 MG in 0.9 % Sodium Chloride 180 ML IVC SCH (09:27)
[2021-05-26] MEDS: Insulin DETEMIR 100 UNIT/ML X5UNITS SUBQ SCH ×2 (09:30→21:08)
[2021-05-26] MEDS: Midazolam HCl 50 MG/100 ML IV.SOLN IVC SCH (10:27)
[2021-05-26] MEDS: Nystatin Cream 15 GM TUBE TP SCH ×2 (10:28→21:11)
[2021-05-26] MEDS ORDERED: *HR* Heparin 10,000 UNIT/10 ML VIAL IV PRN (11:09)
[2021-05-26] MEDS ORDERED: 0.9 % Sodium Chloride 250 ML IVC PRN (11:09)
[2021-05-27] MEDS: Ipratropium 1 PUFF INHALER IH SCH ×4 (00:06→12:06)
[2021-05-27] MEDS: Artificial Tears SOLN 15 ML BOTTLE BOTH EYES SCH ×3 (00:29→08:45)
[2021-05-27] MEDS: Insulin LISPRO 300 UNITS/3 ML VIAL SUBQ SCH ×3 (00:30→08:46)
[2021-05-27] MEDS: Dexmedetomidine HCl 400 MCG/100 ML MLS IVC SCH ×2 (02:58→12:22)
[2021-05-27 04:42] LABS: VBG Ionized Calcium 1.14 mmol/L (1.15-1.35)
[2021-05-27] MEDS: Norepinephrine 4 MG/254 ML IV.SOLN IVC SCH ×2 (04:51→09:35)
[2021-05-27 04:54] LABS: ABG Base Excess -3 mEq/L (-2 to 3); ABG HCO3 23 mEq/L (21-27); ABG Oxygen Saturation 94 % (95-98); ABG PCO2 47 mmHg (35-45); ABG PO2 79 mmHg (85-104); ABG TCO2 25 mEq/L (20-26); Blood Gas VT 380 cc
[2021-05-27 05:02] LABS: Hemoglobin 9.2 g/dL (11.5-15.4); Nucleated Red Blood Cells 0.4 /100 WBC (0); Red Cell Distribution Width 14.6 % (11.5-14.5)
[2021-05-27 05:03] LABS: Hematocrit 28.5 % (35.3-44.9); Mean Corpuscular HGB Conc 32.3 g/dL (31.6-35.5); Mean Corpuscular Hemoglobin 30.1 pg (28.0-33.3); Mean Corpuscular Volume 93.1 fL (83.0-100.0); Mean Platelet Volume 10.9 fL (9.4-12.4); Platelet Count 254 K/mcL (140-400); Red Blood Count 3.06 M/mcL (3.82-4.97)
[2021-05-27 05:07] LABS: White Blood Count 32.1 K/mcL (4.3-11.1)
[2021-05-27 05:25] LABS: Calcium 8.5 mg/dL (8.6-10.3); Potassium 3.8 mEq/L (3.5-5.1)
[2021-05-27 05:29] LABS: Eosinophils # 1.3 K/mcL (0.0-0.6); Lymphocytes # 1.3 K/mcL (0.6-4.6); Neutrophils # 29.5 K/mcL (1.6-8.9)
[2021-05-27 05:30] LABS: Anisocytosis 1+ (Not Present); Platelet Estimate Normal (Normal)
[2021-05-27] MEDS: *HR* Heparin 5,000 UNIT/ML VIAL SQ SCH (06:21)
[2021-05-27] MEDS: Cisatracurium 200 MG in 0.9 % Sodium Chloride 180 ML IVC SCH (07:33)
[2021-05-27 08:42] VITALS: TEMP 99.9
[2021-05-27] MEDS: Cholecalciferol (D-3) 1,000 UNIT (25MCG) TABLET PO SCH (08:45)
[2021-05-27] MEDS: Pantoprazole 40 MG VIAL IVP SCH (08:45)
[2021-05-27] MEDS: Chlorhexidine Rinse 15 ML MOUTHWASH MM SCH (08:45)
[2021-05-27] MEDS: Docusate Oral Soln 100 MG/10 ML UDC GTUBE SCH (08:46)
[2021-05-27] MEDS: Insulin DETEMIR 100 UNIT/ML X5UNITS SUBQ SCH (08:46)
[2021-05-27] MEDS: Nystatin Cream 15 GM TUBE TP SCH (08:46)
[2021-05-27] MEDS: Midazolam HCl 50 MG/100 ML IV.SOLN IVC SCH (09:02)
[2021-05-27] MEDS ORDERED: Glycopyrrolate 0.2 MG/ML VIAL IVP ONE (10:52)
[2021-05-27] MEDS ORDERED: *HR* FentaNYL (PF) 100 MCG/2 ML VIAL IVP PRN (10:53)
[2021-05-27] MEDS ORDERED: *HR* LORazepam 2 MG/ML VIAL IVP PRN (10:53)
[2021-05-27] MEDS: FentaNYL (PF) 2,500 MCG/50 ML IV.SOLN IVC SCH (11:52)
[2021-05-27] MEDS ORDERED: Norepinephrine 4 MG/254 ML IV.SOLN IVC SCH (12:00)
[2021-05-27] MEDS ORDERED: Cefepime HCl 2,000 MG in 0.9 % Sodium Chloride Mini Bag 100 ML IVPB SCH (12:00)
[2021-05-27 12:27] VITALS: PULSE 101
[2021-05-27 12:28] VITALS: BP 101/46
[2021-05-27 12:41] VITALS: O2SAT 92
== END 2021-05-27 14:54 | disposition expired | DRG 207 ==
LOC: 2NNU 19:09 → EMEROOARM 19:09 → 2NNU 05-12 01:45 → SUATTDRO 05-12 11:11 → ICNU 05-16 06:08
PROVIDERS: ADMIT Internal Medicine; ATTEND Family Medicine